=== PATIENT | female | born 1960 | race Caucasian/White ===

== ENCOUNTER → 2018-08-26 | Day surgery (SDC) | payer OTHER ==
[~2018-08-26] MED LIST: ACET325S GTB; ASPI81TA52 GTB; BISA10SU55 RC; EPOE3000 SC; FAMO20TA18 GTB; HEPARIN 1000 UNITS/ML 10 ML INJ ONE; HYDR-843 GTB; IPRA3AMP29 INHALATION; LANS30CA GTB; LIDOCAINE 1% (MDV) 20 ML INJ ONE; LISI30TA47 GTB; LORA0.5T GTB; MAGN400O19 GTB; METO-429 GTB; NA P133E10 RC; NEPH GTB; NYST15CR36 TOP; POLY17PO6 GTB; PROT946L GTB
--- NOTE | 2018-08-26 16:49 | RADRPT ---
PROCEDURE: PLACEMENT OF RIGHT INTERNAL JUGULAR VENOUS TUNNELED DIALYSIS CATHETER. CLINICAL INDICATION: Renal failure. TECHNIQUE: Prior to the procedure, informed consent was obtained. Risks including bleeding, infection, and pneum othorax were explained to the patient. The patient understood and was willing to proceed. A procedura l pause was performed. The patient's name, date of , and procedure to be performed were verified . The central line was inserted with all elements of maximal sterile barrier technique. All of the fo llowing were used: head covering, facial mask, sterile gown, sterile gloves, a large sterile sheet, h and hygiene, and 2% chlorhexidine for cutaneous antisepsis. The right neck and anterior/superior ch est wall was prepped and draped in usual sterile fashion. Following the local injection of Xylocaine, a 0.035 in Amplatz guidewire was advanced through the exi sting temporary dialysis catheter. A 1 cm incision with a #11 blade scalpel was made at the site of the existing temporary dialysis catheter and blunt dissection was performed. A tunnel was then creat ed from the anterior lateral aspect of the superior right chest wall to the puncture site in the neck and the catheter was pulled through the tract. The existing temporary dialysis catheter was removed over the guidewire. Serial dilatation was then performed and a 16 Moz[place]ican peel away sheath was intro duced. The 14.5 Mozambican 23cm long tip to cuff Angiodynamics BioFlo DuraMax dialysis catheter was adva nced through the 16 [place]ambican peel-away sheath. The tip of the catheter was confirmed in position within the right atrium. The peel-away sheath was removed. The 2 ports were each flushed with 2.3 ml of 1: 1000 heparin. The catheter was secured to the skin with 2-0 silk. The wound in the neck was closed with 4-0 Vicryl suture using subcuticular running technique. The site was dressed. Specimens: None. Blood loss: 5 ml. Complications: None. Bee Raiser: Rey Robledo. Anesthesia: Local and moderate sedation. Graft/Implant: Tunneled dialysis catheter. COMPARISON: None. FINDINGS: Final radiographic images demonstrate the tip of the catheter in the upper right atrium. A total of 0.1 minutes of fluoroscopy time was used. 7 images of the chest were obtained with image intensifie r. IMPRESSION: 1. Percutaneous insertion of right internal jugular dialysis tunneled dialysis catheter under fluoros copic guidance. RPTAT: QQ .Gaudencio Hall MD, Date Time Electronically viewed and signed by .Gaudencio Hall MD, on 08/26/2018 16:48 .R/
--- NOTE | 2018-08-26 16:50 | HPN ---
Date/Time of Note Date/Time of Note DATE: 08/26/18 TIME: 16:50 Interval H&P Admission Note Pt. seen H&P reviewed: No system changes JAVIER AGUIRRE MD Aug 26, 2018 16:50
== END | disposition home or self-care (01) ==
LOC: ZBAR 07:20 → EDSTATUS 11:30 → SDS 11:36
PROVIDERS: ATTEND Internal Medicine Nephrology
DX: I12.0 Hypertensive chronic kidney disease with stage 5 chronic kidney disease or end stage renal disease (principal); N18.6 End stage renal disease
CPT/HCPCS: 36558; J1644

== ENCOUNTER 2018-10-05 10:03 | Inpatient (IN) | payer MEDICARE, MEDICAID ==
[2018-10-05] VITALS (7 sets, daily range): BP systolic 131–140; BP diastolic 59–68; PULSE 87–96; RESP 18; Ht 162.6 cm; Wt 100.0 kg
[~2018-10-05] VITALS: Ht 162.6 cm; Wt 100.0 kg
[2018-10-05] MEDS ORDERED: SODIUM CHLORIDE 0.9% 1L BAG IV* STA (10:11)
[2018-10-05] MEDS ORDERED: CEFEPIME 2GM/50 ML (PMX) 50 ML IVPB STA (10:11)
[2018-10-05] MEDS ORDERED: VANCOMYCIN 1 GM (PMX) 250 ML IVPB ONE (10:30)
[2018-10-05] MEDS ORDERED: ACET325S GTB (10:34)
[2018-10-05] MEDS ORDERED: ASPI81TA52 GTB (10:35)
[2018-10-05] MEDS ORDERED: MAGN400O19 GTB (10:35)
[2018-10-05] MEDS ORDERED: NEPH GTB (10:35)
[2018-10-05] MEDS ORDERED: PROT946L GTB (10:36)
[2018-10-05] MEDS ORDERED: NYST15CR36 TOP (10:38)
[2018-10-05] MEDS ORDERED: METO-429 GTB (10:39)
[2018-10-05] MEDS ORDERED: LORA0.5T GTB (10:40)
[2018-10-05] MEDS ORDERED: LISI30TA47 GTB (10:40)
[2018-10-05] MEDS ORDERED: LANS30CA GTB (10:41)
[2018-10-05] MEDS ORDERED: IPRA3AMP29 INHALATION (10:41)
[2018-10-05] MEDS ORDERED: HYDR-843 GTB (10:42)
[2018-10-05] MEDS ORDERED: FAMO20TA18 GTB (10:42)
[2018-10-05] MEDS ORDERED: EPOE3000 SC (10:43)
[2018-10-05] MEDS ORDERED: POLY17PO6 GTB (10:44)
[2018-10-05] MEDS ORDERED: BISA10SU55 RC (10:45)
[2018-10-05] MEDS ORDERED: NA P133E10 RC (10:45)
[2018-10-05] MEDS ORDERED: SOD CHLORIDE 0.9% 500 ML IV ONE (11:00)
--- NOTE | 2018-10-05 11:01 | ERD ---
ER Documentation Chief Complaint Chief Complaint FROM SNF SENT FOR EVAL OF ELEVATED WBC. HPI 38-year-old female transferred from her care facility for evaluation of an elevated white blood cell count that was found on routine lab tests. Patient has limited to no insight in her presentation and provides no further symptoms. There is no further history available on the transfer documentation. ROS All systems reviewed and are negative except as per history of present illness. Medications Home Meds Reported Medications Bisacodyl (Dulcolax) 10 Mg Supp.rect, 10 MG RC DAILY PRN for CONSTIPATION, SUPP.RECT 10/05/18 Na Phos,M-B/Na Phos,Di-Ba (ENEMA [id number]) 133 Ml Enema, 133 ML RC EVERY 72 HOURS PRN for CONSTIPATION, ENEMA 10/05/18 Polyethylene Glycol* (Miralax*) 17 Gm Powd.pack, 17 GM GTB DAILY, #30 PACKET 10/05/18 Epoetin doretha* (Epogen*) 3,000 Unit/1 Ml Vial, [address] UNIT SC [place], VIAL 10/05/18 Famotidine* (Famotidine*) 20 Mg Tablet, 20 MG GTB DAILY, #30 TAB 10/05/18 Hydroxyzine Hcl* (Hydroxyzine Hcl*) 25 Mg Tablet, 25 MG GTB Q8H PRN for ITCHING, #30 TAB 10/05/18 Ipratropium-Albuterol (Ipratropium-Albuterol) 0.5-3 Mg/3 Ml Ampul.neb, 3 ML INHALATION Q6 PRN for WHEEZING AND SOB, #30 VIAL 10/05/18 Lansoprazole* (Lansoprazole*) 30 Mg Capsule.dr, 30 MG GTB DAILY, CAP 10/05/18 Lisinopril* (Lisinopril*) 30 Mg Tablet, 30 MG GTB DAILY, #30 TAB HOLD IF SBP <110 OR HR <60 10/05/18 Lorazepam* (Lorazepam*) 0.5 Mg Tablet, 0.5 MG GTB Q6 PRN for ANXIETY, TAB 10/05/18 Metoprolol Tartrate* (Lopressor*) 50 Mg Tab, 50 MG GTB BID, #60 TAB HOLD IF SBP <110 OR HR <60 10/05/18 Nystatin-Triamcinolone* (Nystatin-Triamcinolone* Cream) 15 Gm Cream.gm., 1 APPLIC TOP BID, #1 TUB 10/05/18 Protein Supplement (Promod) 946 Ml Liquid, 30 ML GTB BID 10/05/18 Multivit/Ca Carb/B Cmplx/Fa* (Stephanie-Johnny*) 1 Tab Tab, 1 TAB GTB DAILY, TAB 10/05/18 Magnesium Hydroxide* (Milk Of Magnesia*) 400 Mg/5 Ml Oral.susp, 30 ML GTB DAILY PRN for CONSTIPATION, ML 10/05/18 Aspirin (Low Dose Aspirin) 81 Mg Tablet.dr, 81 MG GTB DAILY, #30 TAB 10/05/18 Acetaminophen* (Acetaminophen* Susp) 325 Mg/10.15 Ml Solution, 650 MG GTB Q6 PRN for PAIN OR TEMP ABOVE 38C, ML 10/05/18 Allergies Allergies: Coded Allergies: No Known Allergy (Unverified , 10/05/18) PMhx/Soc History of Surgery: Yes (G TUBE PLACEMENT) Anesthesia Reaction: No Hx Neurological Disorder: No Hx Respiratory Disorders: Yes (RESP FAILURE.TRACHE) Hx Cardiac Disorders: Yes (HTN) Hx Psychiatric Problems: No Hx Miscellaneous Medical Probl: Yes (ESRD,ON DIALYSIS) Hx Alcohol Use: No Hx Substance Use: No Hx Tobacco Use: No Smoking Status: Never smoker FmHx Noncontributory for chief complaint Physical Exam Vitals Vital Signs Date Temp Pulse Resp B/P (MAP) Pulse Ox O2 O2 Flow FiO2 Time Delivery Rate 10/05/18 100.6 87 17 118/64 97 10:09 (82) Physical Exam General: Frail, bed bound, ill appearing HEENT: Mucous membranes dry, sclera nonicteric Neck: Tracheostomy site noted. Ostomy closed without inflammatory changes. No inflammatory changes noted. No JVD. Cardiovascular: Regular rate and rhythm, no murmurs rubs or gallops. Lungs: Transmission of upper airway sounds. Abdomen: Soft with G-tube appreciated. Nontender to palpation. Bowel sounds noted. : Diaper in place and incontinent. Extremities: Atrophic but atraumatic with no edema, cyanosis or clubbing. Neurologic: Baseline organic brain syndrome noted. Motor strength diminished in all 4 extremities but otherwise nonfocal. Skin: Skin breakdown noted per nursing note. Dialysis catheter in the right upper chest without inflammatory changes in the insertion site Result Diagram: 10/05/18 1021 10/05/18 1021 Results 24 hrs Laboratory Tests Test 10/05/18 10:21 10/05/18 10:25 White Blood Count 21.6 10^3/ul Red Blood Count 2.47 10^6/ul Hemoglobin 7.0 g/dl Hematocrit 22.7 % Mean Corpuscular Volume 91.9 fl Mean Corpuscular Hemoglobin 28.3 pg Mean Corpuscular Hemoglobin Concent 30.8 g/dl Red Cell Distribution Width 18.8 % Platelet Count 295 10^3/UL Mean Platelet Volume 9.5 fl Immature Granulocytes % 1.200 % Neutrophils % 79.9 % Lymphocytes % 6.9 % Monocytes % 10.3 % Eosinophils % 1.3 % Basophils % 0.4 % Nucleated Red Blood Cells % 0.0 /100WBC Immature Granulocytes # 0.260 10^3/ul Neutrophils # 17.3 10^3/ul Lymphocytes # 1.5 10^3/ul Monocytes # 2.2 10^3/ul Eosinophils # 0.3 10^3/ul Basophils # 0.1 10^3/ul Nucleated Red Blood Cells # 0.0 10^3/ul Prothrombin Time 14.1 Sec Prothrombin Time Ratio 1.1 INR International Normalized Ratio 1.08 Activated Partial Thromboplast Time 45.2 Sec Sodium Level 133 mmol/L Potassium Level 3.7 mmol/L Chloride Level 98 mmol/L Carbon Dioxide Level 25 mmol/L Anion Gap 10 Blood Urea Nitrogen 45 mg/dl Creatinine 4.80 mg/dl Est Glomerular Filtrat Rate mL/min 9 mL/min Glucose Level 119 mg/dl Calcium Level 9.9 mg/dl Total Bilirubin 0.0 mg/dl Direct Bilirubin 0.00 mg/dl Indirect Bilirubin 0.0 mg/dl Aspartate Amino Transf (AST/SGOT) 28 IU/L Alanine Aminotransferase (ALT/SGPT) 25 IU/L Alkaline Phosphatase 138 IU/L Troponin I Pending Total Protein 7.0 g/dl Albumin 3.0 g/dl Globulin 4.00 g/dl Albumin/Globulin Ratio 0.75 POC Venous Lactate 1.3 mmol/L Current Medications Medications Dose Sig/Anthony Start Time Status Last (Trade) Ordered Route PRN Stop Time Admin Dose Reason Admin Sodium 2,400 ml BOLUS OVER 2 10/05/18 DC Chloride HOURS STAT 10:11 (NS) IV* 10/05/18 10:13 Cefepime HCl 50 ml @ ONCE STAT 10/05/18 DC 10/05/18 100 mls/hr IVPB 10:11 10:30 10/05/18 10:40 Vancomycin 250 ml @ ONCE ONCE 10/05/18 10/05/18 HCl 125 mls/hr IVPB 10:30 10:50 10/05/18 12:29 Procedures/MDM Patient was taken to a room, seen and evaluated. Comfort measures were initiated. Diagnostic tests were ordered and reviewed. 3 LEAD RHYTHM STRIP: Pacemaker EK lead EKG reviewed by myself: Paced rhythm Left axis deviation, pacemaker morphology No ST elevation, depression, or T wave inversion Impression: Consistent with her pacemaker RADIOLOGY: Reviewed with the radiologist CONSULTATION: Dr. Moore's service was notified for admission REEVALUATION: 1100: Diagnostic tests were appreciated including lactate. Arrangements were made for admission. MEDICAL DECISION MAKIN-year-old female presents with an elevated white blood cell count concerning for an underlying infection. Source of infection is unclear at this time but she is at risk for a catheter associated infection, urinary tract infection, soft tissue as well as lung infection. Although her diagnostic tests are unclear at this time, given her comorbid conditions, she will be admitted for monitoring of her cultures, empiric antibiotics. I have started gentle IV fluids and as her lactate is less than 2, she does not appear to be severely septic. As she is a dialysis patient, and being judicious with fluids at this time. She will continue to be observed. Departure Diagnosis: Primary Impression: Sepsis Additional Impressions: Anemia Renal failure Condition: LESLI Olivera Oct 05, 2018 11:01
--- NOTE | 2018-10-05 14:24 | HP ---
Date/Time of Note Date/Time of Note DATE: 10/05/18 TIME: 14:15 Assessment/Plan VTE Prophylaxis SCD applied (from Nsg): Yes Pharmacological prophylaxis: LMWH Lines/Catheters IV Catheter Type (from Nrsg): Saline Lock Assessment/Plan Assessment/Plan -Sepsis of unclear etiology, will obtain UA and urine culture, and blood culture. Continue broad-spectrum antibiotics. Dr. Garcia is asked to see patient in infection disease consultation. -Hemodialysis dependent end-stage renal disease. Continue hemodialysis since per nephrology. Dr. Hamm is asked to see patient in nephrology consultation. -Status post PPM for heart block -Hypertension -GERD -Anemia of chronic disease Status post dysphagia with PEG -Status post acute respiratory failure -Obesity Further recommendations based on clinical course. Plan of care discussed with Dr. Moore. Result Diagram: 10/05/18 1021 10/05/18 1021 Results 24hrs Laboratory Tests Test 10/05/18 10:21 10/05/18 10:25 10/05/18 12:25 White Blood Count 21.6 #H Red Blood Count 2.47 L Hemoglobin 7.0 L Hematocrit 22.7 L Mean Corpuscular Volume 91.9 Mean Corpuscular Hemoglobin 28.3 L Mean Corpuscular Hemoglobin Concent 30.8 L Red Cell Distribution Width 18.8 #H Platelet Count 295 # Mean Platelet Volume 9.5 Immature Granulocytes % 1.200 H Neutrophils % 79.9 H Lymphocytes % 6.9 L Monocytes % 10.3 Eosinophils % 1.3 Basophils % 0.4 Nucleated Red Blood Cells % 0.0 Immature Granulocytes # 0.260 H Neutrophils # 17.3 H Lymphocytes # 1.5 Monocytes # 2.2 H Eosinophils # 0.3 Basophils # 0.1 Nucleated Red Blood Cells # 0.0 Prothrombin Time 14.1 Prothrombin Time Ratio 1.1 INR International Normalized Ratio 1.08 Activated Partial Thromboplast Time 45.2 H Sodium Level 133 L Potassium Level 3.7 Chloride Level 98 Carbon Dioxide Level 25 Anion Gap 10 Blood Urea Nitrogen 45 H Creatinine 4.80 H Est Glomerular Filtrat Rate mL/min 9 L Glucose Level 119 Calcium Level 9.9 Total Bilirubin 0.0 L Direct Bilirubin 0.00 Indirect Bilirubin 0.0 Aspartate Amino Transf (AST/SGOT) 28 Alanine Aminotransferase (ALT/SGPT) 25 Alkaline Phosphatase 138 H Troponin I 0.023 Total Protein 7.0 Albumin 3.0 L Globulin 4.00 H Albumin/Globulin Ratio 0.75 POC Venous Lactate 1.3 1.2 HPI/ROS Admit Date/Time Admit Date/Time Oct 05, 2018 at 11:51 Hx of Present Illness The patient is a 58-year-old female with history of cerebrovascular vascular accident, acute respiratory failure requiring tracheostomy and ventilatory support, currently decannulated, dysphagia with G-tube however patient is able to take p.o. diet at senior living facility, history of end-stage renal renal disease with hemodialysis 3 times a week, history of heart block status post pacemaker, hypertension, anemia, GERD, bilateral upper extremity cellulitis. Patient was brought from [facility] for evaluation for leukocyt osis noted on routine labs. Patient is awake alert to name and situation however cannot provide any history most of the history was obtained from medical records and talking to nursing staff. Patient white blood cells are noted to be elevated to 21,000 patient also had fever. Patient was diagnosed with sepsis and started on broad-spectrum antibiotics and admitted for further evaluation and management to telemetry floor. ROS 12 point review of system is negative except for what mentioned in HPI PMH/Family/Social Past Medical History Per HPI Medical History: hypertension, renal disease Coded Allergies: No Known Allergy (Unverified , 10/05/18) Past Surgical History Past Surgical Hx: other (Status post tracheostomy and subsequent decannulation, status post G-tube placement) Family History Significant Family History: no pertinent family hx Social History Smoking Status: Never smoker Exam/Review of Systems Vital Signs Vitals Vital Signs Date Temp Pulse Resp B/P (MAP) Pulse Ox O2 O2 Flow FiO2 Time Delivery Rate 10/05/18 88 13:45 10/05/18 98.6 18 140/68 99 13:37 (92) 10/05/18 Room Air 12:50 Exam Constitutional: alert, oriented Head: normocephalic Neck: supple Respiratory: diminished breath sounds Cardiovascular: regular rate and rhythm, other (Left chest PPM) Gastrointestinal: soft, non-tender, other (G-tube) Musculoskeletal: nl extremities to inspection Extremities: normal pulses Neurological: confused Additional Comments Right chest hemodialysis catheter ANDREW ODOM Oct 05, 2018 14:24
[2018-10-05] MEDS ORDERED: MAGNESIUM HYDROXIDE 30ML CUP GTB PRN (14:30)
[2018-10-05] MEDS ORDERED: ACETAMINOPHEN 650MG/20.3ML CUP GTB PRN (14:30)
[2018-10-05] MEDS ORDERED: hydrOXYzine HCL 25 MG TAB GTB PRN (14:30)
[2018-10-05] MEDS ORDERED: morphine 2 MG INJ IV PRN (14:30)
[2018-10-05] MEDS ORDERED: NACL 0.9% 3 ML SYG IV SCH (14:30)
[2018-10-05] MEDS ORDERED: ONDANSETRON 4 MG INJ IV PRN (14:30)
[2018-10-05] MEDS ORDERED: BISACODYL 10 MG SUPP PR PRN (14:30)
[2018-10-05] MEDS ORDERED: LORAZEPAM 0.5 MG TAB GTB PRN (14:30)
[2018-10-05] MEDS ORDERED: VANCOMYCIN IV PER PHARMACY XX SCH (15:00)
[2018-10-05] MEDS ORDERED: VANCOMYCIN 1 GM 250 ML IVPB SCH (16:00)
[2018-10-05] MEDS ORDERED: EPOETIN 10000 UNITS/1 ML INJ (ESRD) SC SCH (17:00)
[2018-10-05] MEDS ORDERED: EPOETIN ALFA (NESRD) 3,000 UNITS/ML VIAL SC SCH (17:00)
--- NOTE | 2018-10-05 18:54 | CONS ---
DATE OF ADMISSION: 10/05/2018 DATE OF CONSULTATION: 10/05/2018 TYPE OF CONSULTATION: Nephrology. REASON FOR CONSULTATION: End-stage renal disease. PHYSICIAN REQUESTING CONSULT: Lew Moore MD HISTORY OF PRESENT ILLNESS: This is a 58-year-old female with a past medical history of respiratory failure, status post tracheostomy with decannulation, a history of end-stage renal disease, history o f dysphagia, history of encephalopathy, hypertension, anemia, who presents to [facility] Room for elevated WBC. The patient was noted to have abnormal labs at her nursing facility. As a result, she was brought into the emergency room. Upon arrival, the patient had a chest x-ray wh ich showed no definitive finding of infiltrate. The patient in the emergency room was started on ant ibiotic therapy and admitted to telemetry for evaluation. Upon my evaluation of the patient at this time, she is currently stable, but denies any hemoptysis, h ematemesis, hematochezia. PAST MEDICAL HISTORY: As stated above, history of end-stage renal disease, history of hypertension, history of anemia, history of respiratory failure, history of encephalopathy, history of dysphagia, h istory of obesity, history of arrhythmia. PAST SURGICAL HISTORY: Status post PermCath placement, status post G-tube, status post tracheostomy with decannulation. FAMILY HISTORY: No family history of kidney disease. SOCIAL HISTORY: Lives at skilled nurse facility. MEDICATIONS: Have been reviewed. REVIEW OF SYSTEMS: A 14-point review of systems was conducted. Pertinent positives stated in HPI, o therwise negative. PHYSICAL EXAMINATION: VITAL SIGNS: Blood pressure is 140/68, respiration 18, pulse 87, temperature 98.6. HEENT: Head is normocephalic. NECK: Supple. HEART: Regular rate. LUNGS: Show diminished breath sounds at the base. ABDOMEN: Soft, nontender to palpation. No rebound or guarding. EXTREMITIES: Negative for clubbing, cyanosis. No edema. DERMATOLOGIC: No rashes. MUSCULOSKELETAL: No joint effusion. NEUROLOGIC: No focal deficits. LABORATORY DATA: Show white count 21.6, hemoglobin 7.0, platelet count 295. Sodium 133, potassium 3 .7, BUN 45, creatinine 4.80. ASSESSMENT AND PLAN: This is a 58-year-old female who presents with: 1. End-stage renal disease. The patient is on dialysis Jasmyne, , Wednesday with access Perm Cath. Plan is for dialysis today. We will dialyze for 3 hours of 4k bath, calcium 2.5, ultrafiltrat e as tolerated. 2. Anemia. Plan is to check an iron panel. Check ferritin level. Check stool for occult blood. W e will continue the patient on Epogen. 3. Mineral bone disorder. Monitor calcium and phosphorus levels. 4. Hyponatremia. The patient will be dialyzed on a 140-sodium bath. 5. Hypertension. Continue current blood pressure regimen. Continue ultrafiltration. 6. Sepsis. Etiology is unclear. Need to rule out line infection. Plan is to check blood cultures, peripherally blood culture from PermCath. We will check procalcitonin level. Continue antibiotic t herapy. Follow up with primary team. 7. History of arrhythmia, status post pacemaker placement. 8. Dysphagia, status post PEG. Continue tube feeding. 9. History of respiratory failure. 10. Obesity. Thank you, Dr. Moore, for this interesting consult. It will be a pleasure to follow patient with you throughout the hospital course. Dictated By: KAYLENE SÁNCHEZ DO NR/NTS Conf#: [id number] DID#: [id number] CC: LEW MOORE MD;*EndCC*
[2018-10-05] MEDS: METOPROLOL 50 MG TAB GTB SCH (20:10)
[2018-10-06] VITALS (23 sets, daily range): BP systolic 92–134; BP diastolic 51–91; PULSE 74–98; RESP 18–20
[2018-10-06] MEDS ORDERED: VANCOMYCIN IV PER PHARMACY XX SCH (05:30)
--- NOTE | 2018-10-06 08:54 | PN ---
DATE: 10/06/2018 SUBJECTIVE: The patient is stable, no events overnight. Patient is currently receiving hemodialysis , tolerating well. OBJECTIVE: VITAL SIGNS: Blood pressure is 111/57, pulse 98, respirations 20, temperature 98.2. HEENT: Head is normocephalic. NECK: Supple. HEART: Regular rate. LUNGS: Show diminished breath sounds at the base. ABDOMEN: Soft, nontender to palpation without rebound or guarding. EXTREMITIES: Negative for clubbing, cyanosis, no edema. DERMATOLOGIC: No rashes. MUSCULOSKELETAL: No joint effusion. NEUROLOGIC: No change in exam. MEDICATIONS: Reviewed. LABORATORY DATA: Shows sodium 135, potassium 3.9, BUN 55, creatinine 5.53. White count 13.3, hemogl obin 7.6, platelet count 331. Patient's iron panel was reviewed. ASSESSMENT AND PLAN: 1. End-stage renal disease. Plan is for dialysis today. We will dialyze for 3 hours 3k bath, calci um 2.5, ultrafiltrate as tolerated. 2. Anemia. The patient's iron panel shows evidence of iron deficiency, will start patient on IV Ken rlecit. Continue Epogen. 3. Mineral bone disorder, monitor calcium and phosphorus levels. 4. Hyponatremia. Continue dialysis 140 sodium bath. 5. Hypertension. Continue blood pressure regimen. 6. Sepsis, etiology unclear. Need to rule out line infection. Blood cultures from Perm-A-Cath will be drawn. Continue antibiotic therapy, monitor closely. 7. History of arrhythmia. Continue to monitor. 8. Dysphagia, status post PEG. 9. History of respiratory failure. 10. Obesity. Continue dietary modification. Dictated By: KAYLENE SÁNCHEZ DO NR/NTS Conf#: [id number] DID#: [id number] CC: LEW RODRÍGUEZ MD;*EndCC*
[2018-10-06] MEDS: LISINOPRIL 10 MG TAB GTB SCH (09:00)
[2018-10-06] MEDS: METOPROLOL 50 MG TAB GTB SCH ×2 (09:00→20:16)
[2018-10-06] MEDS: MULTIVIT/CA CARB/B CMPLX/FA TAB GTB SCH (09:50)
[2018-10-06] MEDS: ASPIRIN (EC) 81 MG TAB PO SCH (09:51)
[2018-10-06] MEDS: POLYETHYLENE GLYCOL 17 GM PACKET GTB SCH (09:51)
[2018-10-06] MEDS: FAMOTIDINE 20 MG TAB GTB SCH (09:51)
[2018-10-06] MEDS ORDERED: CEFEPIME 1GM/50 ML (PMX) 50 ML IVPB SCH (10:00)
[2018-10-06] MEDS: HEPARIN 1000 UNITS/ML 10 ML INJ CATHETER SCH (10:12)
[2018-10-06] MEDS: CEFEPIME 2GM/50 ML (PMX) 50 ML IVPB SCH (11:14)
[2018-10-06] MEDS: SOD FERRIC GLUC COMPLX 125 MG in SOD CHLORIDE 0.9% 100 ML IVPB SCH (12:14)
--- NOTE | 2018-10-06 16:25 | PN ---
Date/Time of Note Date/Time of Note DATE: 10/06/18 TIME: 16:21 Assessment/Plan VTE Prophylaxis [place] [facility] [place] risk: 6 SCD applied [place] [facility] [place] Yes Pharmacological prophylaxis: NA/contraindicated Pharm contraindication: other Lines/Catheters [facility] C[facility] Type [facility]from [facility] Saline Lock Urinary Cath still in place: No Assessment/Plan Hospital Course Patient is hemodynamically stable, no fever, past swallow evaluation started on pured diet status post hemodialysis today. Assessment/Plan -Sepsis gram-positive cocci bacteremia. Continue broad-spectrum antibiotics. Dr. Garcia is following in infection disease consultation. -Hemodialysis dependent end-stage renal disease. Continue hemodialysis per nephrology. Dr. Hamm is following in nephrology consultation. -Status post PPM for heart block -Hypertension -GERD -Anemia of chronic disease -Status post dysphagia with PEG -Status post acute respiratory failure -Obesity Further recommendations based on clinical course. Plan of care discussed with Dr. Moore. Result Diagram: 10/06/18 0544 10/06/18 0544 Results 24hrs Laboratory Tests Test 10/06/18 05:44 White Blood Count 13.3 #H Red Blood Count 2.68 L Hemoglobin 7.6 L Hematocrit 24.9 L Mean Corpuscular Volume 92.9 Mean Corpuscular Hemoglobin 28.4 L Mean Corpuscular Hemoglobin Concent 30.5 L Red Cell Distribution Width 19.1 H Platelet Count 331 Mean Platelet Volume 9.7 Immature Granulocytes % 1.100 H Neutrophils % 81.5 H Lymphocytes % 7.4 L Monocytes % 5.4 Eosinophils % 4.4 Basophils % 0.2 Nucleated Red Blood Cells % 0.0 Immature Granulocytes # 0.140 H Neutrophils # 10.8 H Lymphocytes # 1.0 Monocytes # 0.7 Eosinophils # 0.6 H Basophils # 0.0 Nucleated Red Blood Cells # 0.0 Sodium Level 135 Potassium Level 3.9 Chloride Level 101 Carbon Dioxide Level 23 Anion Gap 11 Blood Urea Nitrogen 55 H Creatinine 5.53 H Est Glomerular Filtrat Rate mL/min 8 L Glucose Level 81 Lactic Acid Level 0.8 Calcium Level 10.0 Magnesium Level 2.3 Total Bilirubin 0.0 L Direct Bilirubin 0.00 Indirect Bilirubin 0.0 Aspartate Amino Transf (AST/SGOT) 32 Alanine Aminotransferase (ALT/SGPT) 38 Alkaline Phosphatase 113 Total Protein 6.1 Albumin 2.5 L Globulin 3.60 H Albumin/Globulin Ratio 0.69 Triglycerides Level 112 Cholesterol Level 117 LDL Cholesterol, Calculated 77 HDL Cholesterol 18 L Cholesterol/HDL Ratio 6.5 Exam/Review of Systems Exam Vitals Vital Signs Date Temp Pulse Resp B/P (MAP) Pulse Ox O2 O2 Flow FiO2 Time Delivery Rate 10/06/18 98.2 94 19 116/54 100 15:16 (74) 10/06/18 Room Air 08:17 Intake and Output 10/05/18 10/05/18 10/06/18 1515:00 23:00 07:00 IntakeIntake Total 650 ml 240 ml BalanceBalance 650 ml 240 ml Exam Constitutional: alert, oriented Respiratory: diminished breath sounds Cardiovascular: regular rate and rhythm, other (Left chest PPM) Gastrointestinal: soft, non-tender, other (G-tube) Musculoskeletal: nl extremities to inspection Extremities: normal pulses Neurological: confused Additional Comments Right chest hemodialysis catheter Results Results 24hrs Laboratory Tests Test 10/06/18 05:44 White Blood Count 13.3 #H Red Blood Count 2.68 L Hemoglobin 7.6 L Hematocrit 24.9 L Mean Corpuscular Volume 92.9 Mean Corpuscular Hemoglobin 28.4 L Mean Corpuscular Hemoglobin Concent 30.5 L Red Cell Distribution Width 19.1 H Platelet Count 331 Mean Platelet Volume 9.7 Immature Granulocytes % 1.100 H Neutrophils % 81.5 H Lymphocytes % 7.4 L Monocytes % 5.4 Eosinophils % 4.4 Basophils % 0.2 Nucleated Red Blood Cells % 0.0 Immature Granulocytes # 0.140 H Neutrophils # 10.8 H Lymphocytes # 1.0 Monocytes # 0.7 Eosinophils # 0.6 H Basophils # 0.0 Nucleated Red Blood Cells # 0.0 Sodium Level 135 Potassium Level 3.9 Chloride Level 101 Carbon Dioxide Level 23 Anion Gap 11 Blood Urea Nitrogen 55 H Creatinine 5.53 H Est Glomerular Filtrat Rate mL/min 8 L Glucose Level 81 Lactic Acid Level 0.8 Calcium Level 10.0 Magnesium Level 2.3 Total Bilirubin 0.0 L Direct Bilirubin 0.00 Indirect Bilirubin 0.0 Aspartate Amino Transf (AST/SGOT) 32 Alanine Aminotransferase (ALT/SGPT) 38 Alkaline Phosphatase 113 Total Protein 6.1 Albumin 2.5 L Globulin 3.60 H Albumin/Globulin Ratio 0.69 Triglycerides Level 112 Cholesterol Level 117 LDL Cholesterol, Calculated 77 HDL Cholesterol 18 L Cholesterol/HDL Ratio 6.5 Medications Medication Current Medications Acetaminophen (Tylenol Liquid) 650 mg Q6 PRN GTB MILD PAIN(1-3) OR TEMP>38C; Start 10/05/18 at 14:30 Aspirin (Halfprin) 81 mg DAILY PO Last administered on 10/06/18at 09:51; Admin Dose 81 MG; Start 10/06/18 at 09:00 Bisacodyl (Dulcolax Supp) 10 mg DAILY PRN [place] CONSTIPATION; Start 10/05/18 at 14:30 Famotidine (Pepcid) 20 mg DAILY GTB Last administered on 10/06/18at 09:51; Admin Dose 20 MG; Start 10/06/18 at 09:00 Hydroxyzine HCl (Atarax) 25 mg Q8H PRN GTB ITCHING; Start 10/05/18 at 14:30 Lisinopril (Zestril) 30 mg DAILY GTB ; Start 10/06/18 at 09:00 Lorazepam (Ativan) 0.5 mg Q6H PRN GTB ANXIETY; Start 10/05/18 at 14:30 Magnesium Hydroxide (Milk Of Mag) 30 ml DAILY PRN GTB CONSTIPATION; Start 10/05/18 at 14:30 Metoprolol Tartrate (Lopressor) 50 mg BID GTB Last administered on 10/05/18at 20:10; Admin Dose 50 MG; Start 10/05/18 at 21:00 Multivit/Ca Carb/ B Cmplx/FA/Prenat (Stephanie-Johnny) 1 tab DAILY GTB Last administer ed on 10/06/18at 09:50; Admin Dose 1 TAB; Start 10/06/18 at 09:00 Polyethylene Glycol (Miralax) 17 gm DAILY GTB Last administered on 10/06/18at 09:51; Admin Dose 17 GM; Start 10/06/18 at 09:00 IV Flush (NS 3 ml) 3 ml PER PROTOCOL IV ; Start 10/05/18 at 14:30 Ondansetron HCl (Zofran Inj) 4 mg Q6H PRN IV NAUSEA/VOMITING; Start 10/05/18 at 14:30 Morphine Sulfate (morphine) 2 mg Q4H PRN IV .PAIN 7-10; Start 10/05/18 at 14:30 Vancomycin HCl (Vanco Iv Per Pharmacy) VANCOMYCIN PER PHARMACY PER PROTOCOL XX ; Start 10/05/18 at 15:00 Cefepime HCl 50 ml @ 100 mls/hr Q24H IVPB Last administered on 10/06/18at 11:14; Admin Dose 100 MLS/HR; Start 10/06/18 at 10:00 Epoetin Justen (Epogen (Esrd)) 10,000 units TuThSa@17 SC ; Start 10/06/18 at 17:00 Heparin Sodium (Porcine) (Heparin (1000 Units/ml)) 4,500 unit PRN CATHETER Last administered on 10/06/18at 10:12; Admin Dose 4,500 UNIT; Start 10/06/18 at 07:30 Ferric Sodium Gluconate Complex 125 mg/Sodium Chloride 110 ml @ 110 mls/hr DAILY@1300 IVPB Last administered on 10/06/18at 12:14; Admin Dose 110 MLS/HR; Start 10/06/18 at 13:00; Stop 10/10/18 at 13:59 Miscellaneous Information (*Rx Drug Level Order Reminder*) VANCO RANDOM W/ AM LABS... ONCE ONCE XX ; Start 10/07/18 at 05:00; Stop 10/07/18 at 05:01 ANDREW ODOM Oct 06, 2018 16:25
[2018-10-06] MEDS: EPOETIN 10000 UNITS/1 ML INJ (ESRD) SC SCH (17:30)
[2018-10-07] VITALS (22 sets, daily range): BP systolic 109–161; BP diastolic 53–87; PULSE 57–111; RESP 18–22
--- NOTE | 2018-10-07 08:35 | PN ---
DATE: 10/07/2018 SUBJECTIVE: The patient is stable, had hemodialysis yesterday, tolerated well. OBJECTIVE: VITAL SIGNS: Blood pressure is 111/54, pulse 79, respirations 22, temperature 98.0. HEENT: Head is normocephalic. NECK: Supple. HEART: Regular rate. LUNGS: Show diminished breath sounds at the base. ABDOMEN: Soft, nontender to palpation. No rebound or guarding. EXTREMITIES: Negative for clubbing, cyanosis, no edema. DERMATOLOGIC: No rashes. MUSCULOSKELETAL: No joint effusion. NEUROLOGIC: No change in exam. MEDICATIONS: Reviewed. LABORATORY DATA: From 10/07/2018 was reviewed. ASSESSMENT AND PLAN: 1. End-stage renal disease. The patient had hemodialysis yesterday. Plan is for dialysis again for solute clearance. 2. Anemia. The patient has noted iron deficiency. Continue IV Ferrlecit. Continue Epogen. 3. Mineral bone disorder, monitor calcium and phosphorus levels. 4. Hypernatremia, improved. 5. Hypertension. Continue current blood pressure regimen. 6. Sepsis, etiology is concerning for possible line infection. The patient's blood cultures are pos itive. The patient is pending blood cultures from Perm-A-Cath. If they are noted to be positive, we will likely need to discontinue Perm-A-Cath. We will continue antibiotic regimen. We will discuss with infectious disease and monitor closely. 7. Arrhythmia. Continue to monitor. 8. Dysphagia status post percutaneous endoscopic gastrostomy. Continue tube feeding. 9. History of respiratory failure. 10. Obesity. Continue dietary modification. Dictated By: KAYLENE JOSUE/NTS Conf#: [id number] DID#: [id number] CC: LEW RODRÍGUEZ MD;*EndCC*
[2018-10-07] MEDS: METOPROLOL 50 MG TAB GTB SCH ×2 (09:00→21:19)
[2018-10-07] MEDS: LISINOPRIL 10 MG TAB GTB SCH (09:00)
[2018-10-07] MEDS: POLYETHYLENE GLYCOL 17 GM PACKET GTB SCH (09:44)
[2018-10-07] MEDS: MULTIVIT/CA CARB/B CMPLX/FA TAB GTB SCH (09:44)
[2018-10-07] MEDS: ASPIRIN (EC) 81 MG TAB PO SCH (09:44)
[2018-10-07] MEDS: FAMOTIDINE 20 MG TAB GTB SCH (09:44)
[2018-10-07] MEDS: CEFEPIME 2GM/50 ML (PMX) 50 ML IVPB SCH (10:12)
--- NOTE | 2018-10-07 11:33 | PN ---
Date/Time of Note Date/Time of Note DATE: 10/07/18 TIME: 11:32 Assessment/Plan VTE Prophylaxis Risk score (from [facility])>0 risk: 7 SCD applied (from [facility]): Yes Lines/Catheters IV Catheter Type (from [facility]rs): Saline Lock Urinary Cath still in place: No Assessment/Plan Assessment/Plan -Sepsis gram-positive cocci bacteremia. Continue broad-spectrum antibiotics. Dr. Garcia is following in infection disease consultation. -Hemodialysis dependent end-stage renal disease. Continue hemodialysis per nephrology. Dr. Hamm is following in nephrology consultation. -Status post PPM for heart block -Hypertension -GERD -Anemia of chronic disease -Status post dysphagia with PEG -Status post acute respiratory failure -Obesity Further recommendations based on clinical course. Plan of care discussed with Dr. Moore. Result Diagram: 10/07/1817 10/07/18 0517 Results 24hrs Laboratory Tests Test 10/07/18 05:17 White Blood Count 11.7 H Red Blood Count 2.75 L Hemoglobin 7.8 L Hematocrit 25.2 L Mean Corpuscular Volume 91.6 Mean Corpuscular Hemoglobin 28.4 L Mean Corpuscular Hemoglobin Concent 31.0 L Red Cell Distribution Width 18.9 H Platelet Count 365 Mean Platelet Volume 9.8 Immature Granulocytes % 1.000 H Neutrophils % 75.3 Lymphocytes % 8.5 L Monocytes % 6.8 Eosinophils % 8.1 H Basophils % 0.3 Nucleated Red Blood Cells % 0.0 Immature Granulocytes # 0.120 H Neutrophils # 8.8 H Lymphocytes # 1.0 Monocytes # 0.8 Eosinophils # 1.0 H Basophils # 0.0 Nucleated Red Blood Cells # 0.0 Sodium Level 138 Potassium Level 4.1 Chloride Level 100 Carbon Dioxide Level 26 Anion Gap 12 Blood Urea Nitrogen 33 #H Creatinine 4.95 H Est Glomerular Filtrat Rate mL/min 9 L Glucose Level 85 Calcium Level 10.1 Random Vancomycin Level 16.9 Exam/Review of Systems Exam Vitals Vital Signs Date Temp Pulse Resp B/P (MAP) Pulse Ox O2 O2 Flow FiO2 Time Delivery Rate 10/07/18 81 08:49 10/07/18 98.0 22 111/54 96 Room Air 07:25 (73) Intake and Output 10/06/18 10/06/18 10/07/18 1414:59 22:59 06:59 IntakeIntake Total 160 ml 900 ml 240 ml OutputOutput Total 2400 ml BalanceBalance -2240 ml 900 ml 240 ml Results Results 24hrs Laboratory Tests Test 10/07/18 05:17 White Blood Count 11.7 H Red Blood Count 2.75 L Hemoglobin 7.8 L Hematocrit 25.2 L Mean Corpuscular Volume 91.6 Mean Corpuscular Hemoglobin 28.4 L Mean Corpuscular Hemoglobin Concent 31.0 L Red Cell Distribution Width 18.9 H Platelet Count 365 Mean Platelet Volume 9.8 Immature Granulocytes % 1.000 H Neutrophils % 75.3 Lymphocytes % 8.5 L Monocytes % 6.8 Eosinophils % 8.1 H Basophils % 0.3 Nucleated Red Blood Cells % 0.0 Immature Granulocytes # 0.120 H Neutrophils # 8.8 H Lymphocytes # 1.0 Monocytes # 0.8 Eosinophils # 1.0 H Basophils # 0.0 Nucleated Red Blood Cells # 0.0 Sodium Level 138 Potassium Level 4.1 Chloride Level 100 Carbon Dioxide Level 26 Anion Gap 12 Blood Urea Nitrogen 33 #H Creatinine 4.95 H Est Glomerular Filtrat Rate mL/min 9 L Glucose Level 85 Calcium Level 10.1 Random Vancomycin Level 16.9 Medications Medication Current Medications Acetaminophen (Tylenol Liquid) 650 mg Q6 PRN GTB MILD PAIN(1-3) OR TEMP>38C; Start 10/05/18 at 14:30 Aspirin (Halfprin) 81 mg DAILY PO Last administered on 10/07/18at 09:44; Admin Dose 81 MG; Start 10/06/18 at 09:00 Bisacodyl (Dulcolax Supp) 10 mg DAILY PRN [place] CONSTIPATION; Start 10/05/18 at 14:30 Famotidine (Pepcid) 20 mg DAILY GTB Last administered on 10/07/18at 09:44; Admin Dose 20 MG; Start 10/06/18 at 09:00 Hydroxyzine HCl (Atarax) 25 mg Q8H PRN GTB ITCHING; Start 10/05/18 at 14:30 Lisinopril (Zestril) 30 mg DAILY GTB ; Start 10/06/18 at 09:00 Lorazepam (Ativan) 0.5 mg Q6H PRN GTB ANXIETY; Start 10/05/18 at 14:30 Magnesium Hydroxide (Milk Of Mag) 30 ml DAILY PRN GTB CONSTIPATION; Start 10/05/18 at 14:30 Metoprolol Tartrate (Lopressor) 50 mg BID GTB Last administered on 10/06/18 20:16; Admin Dose 50 MG; Start 10/05/18 at 21:00 Multivit/Ca Carb/ B Cmplx/FA/Prenat (Stephanie-Johnny) 1 tab DAILY GTB Last administered on 10/07/18 09:44; Admin Dose 1 TAB; Start 10/06/18 at 09:00 Polyethylene Glycol (Miralax) 17 gm DAILY GTB Last administered on 10/07/18 09:44; Admin Dose 17 GM; Start 10/06/18 at 09:00 IV Flush (NS 3 ml) 3 ml PER PROTOCOL IV ; Start 10/05/18 at 14:30 Ondansetron HCl (Zofran Inj) 4 mg Q6H PRN IV NAUSEA/VOMITING; Start 10/05/18 at 14:30 Morphine Sulfate (morphine) 2 mg Q4H PRN IV .PAIN 7-10; Start 10/05/18 at 14:30 Vancomycin HCl (Vanco Iv Per Pharmacy) VANCOMYCIN PER PHARMACY PER PROTOCOL XX ; Start 10/05/18 at 15:00 Cefepime HCl 50 ml @ 100 mls/hr Q24H IVPB Last administered on 10/07/18 10:12; Admin Dose 100 MLS/HR; Start 10/06/18 at 10:00 Epoetin Justen (Epogen (Esrd)) 10,000 units TuThSa@17 SC Last administered on 10/06/18 17:30; Admin Dose 10,000 UNITS; Start 10/06/18 at 17:00 Heparin Sodium (Porcine) (Heparin (1000 Units/ml)) 4,500 unit PRN CATHETER Last administered on 10/06/18 10:12; Admin Dose 4,500 UNIT; Start 10/06/18 at 07:30 Ferric Sodium Gluconate Complex 125 mg/Sodium Chloride 110 ml @ 110 mls/hr DAILY@1300 IVPB Last administered on 10/06/18 12:14; Admin Dose 110 MLS/HR; Start 10/06/18 at 13:00; Stop 10/10/18 at 13:59 FREDDY LING Oct 07, 2018 11:33
[2018-10-07] MEDS: SOD FERRIC GLUC COMPLX 125 MG in SOD CHLORIDE 0.9% 100 ML IVPB SCH (13:28)
[2018-10-07] MEDS ORDERED: VANCOMYCIN HCL 1.25 GM in SOD CHLORIDE 0.9% 250 ML IVPB SCH (16:00)
[2018-10-08] VITALS (15 sets, daily range): BP systolic 97–133; BP diastolic 50–80; PULSE 75–123; RESP 18–19
[2018-10-08] MEDS: FAMOTIDINE 20 MG TAB GTB SCH (09:21)
[2018-10-08] MEDS: MULTIVIT/CA CARB/B CMPLX/FA TAB GTB SCH (09:21)
[2018-10-08] MEDS: POLYETHYLENE GLYCOL 17 GM PACKET GTB SCH (09:21)
[2018-10-08] MEDS: ASPIRIN (EC) 81 MG TAB PO SCH (09:21)
[2018-10-08] MEDS: METOPROLOL 50 MG TAB GTB SCH ×2 (09:23→21:49)
[2018-10-08] MEDS: LISINOPRIL 10 MG TAB GTB SCH (09:24)
--- NOTE | 2018-10-08 10:37 | CONS ---
Consult Date/Type/Reason Admit Date/Time Oct 05, 2018 at 11:51 Initial Consult Date Date/Time of Note DATE: 10/08/18 TIME: 10:35 Subjective SUBJECTIVE: The patient is stable, had hemodialysis yesterday, tolerated well. OBJECTIVE: HEENT: Head is normocephalic. NECK: Supple. HEART: Regular rate. LUNGS: Show diminished breath sounds at the base. ABDOMEN: Soft, nontender to palpation. No rebound or guarding. EXTREMITIES: Negative for clubbing, cyanosis, no edema. DERMATOLOGIC: No rashes. MUSCULOSKELETAL: No joint effusion. NEUROLOGIC: No change in exam. Objective Vitals Vital Signs Date Temp Pulse Resp B/P (MAP) Pulse Ox O2 O2 Flow FiO2 Time Delivery Rate 10/08/18 109 08:01 10/08/18 98.1 19 103/51 96 07:35 (68) 10/07/18 Room Air 22:47 Intake and Output 10/07/18 10/07/18 10/08/18 1515:00 23:00 07:00 IntakeIntake Total 160 ml 500 ml 300 ml OutputOutput Total 2602 ml 92435 ml BalanceBalance 160 ml -2102 ml -63875 ml Results/Medications Result Diagram: 10/08/18 0530 10/08/18 0530 Results 24 hrs Laboratory Tests Test 10/08/18 05:30 White Blood Count 11.2 H Red Blood Count 2.90 L Hemoglobin 8.2 L Hematocrit 26.9 L Mean Corpuscular Volume 92.8 Mean Corpuscular Hemoglobin 28.3 L Mean Corpuscular Hemoglobin Concent 30.5 L Red Cell Distribution Width 18.8 H Platelet Count 388 Mean Platelet Volume 9.9 Immature Granulocytes % 1.900 H Neutrophils % 72.7 Lymphocytes % 9.0 L Monocytes % 5.7 Eosinophils % 10.4 H Basophils % 0.3 Nucleated Red Blood Cells % 0.2 H Immature Granulocytes # 0.210 H Neutrophils # 8.1 H Lymphocytes # 1.0 Monocytes # 0.6 Eosinophils # 1.2 H Basophils # 0.0 Nucleated Red Blood Cells # 0.0 Sodium Level 134 L Potassium Level 3.9 Chloride Level 99 Carbon Dioxide Level 26 Anion Gap 9 Blood Urea Nitrogen 22 #H Creatinine 4.17 H Est Glomerular Filtrat Rate mL/min 11 L Glucose Level 97 Calcium Level 9.9 Phosphorus Level 3.5 Magnesium Level 2.0 Home Meds Reported Medications Bisacodyl (Dulcolax) 10 Mg Supp.rect, 10 MG RC DAILY PRN for CONSTIPATION, SUPP.RECT 10/05/18 Na Phos,M-B/Na Phos,Di-Ba (ENEMA ERKET-LA-GWG) 133 Ml Enema, 133 ML RC EVERY 72 HOURS PRN for CONSTIPATION, ENEMA 10/05/18 Polyethylene Glycol* (Miralax*) 17 Gm Powd.pack, 17 GM GTB DAILY, #30 PACKET 10/05/18 Epoetin doretha* (Epogen*) 3,000 Unit/1 Ml Vial, 80871 UNIT SC MONWEDFRI, VIAL 10/05/18 Famotidine* (Famotidine*) 20 Mg Tablet, 20 MG GTB DAILY, #30 TAB 10/05/18 Hydroxyzine Hcl* (Hydroxyzine Hcl*) 25 Mg Tablet, 25 MG GTB Q8H PRN for ITCHING, #30 TAB 10/05/18 Ipratropium-Albuterol (Ipratropium-Albuterol) 0.5-3 Mg/3 Ml Ampul.neb, 3 ML INHALATION Q6 PRN for WHEEZING AND SOB, #30 VIAL 10/05/18 Lansoprazole* (Lansoprazole*) 30 Mg Capsule.dr, 30 MG GTB DAILY, CAP 10/05/18 Lisinopril* (Lisinopril*) 30 Mg Tablet, 30 MG GTB DAILY, #30 TAB HOLD IF SBP <110 OR HR <60 10/05/18 Lorazepam* (Lorazepam*) 0.5 Mg Tablet, 0.5 MG GTB Q6 PRN for ANXIETY, TAB 10/05/18 Metoprolol Tartrate* (Lopressor*) 50 Mg Tab, 50 MG GTB BID, #60 TAB HOLD IF SBP <110 OR HR <60 10/05/18 Nystatin-Triamcinolone* (Nystatin-Triamcinolone* Cream) 15 Gm Cream.gm., 1 APPLIC TOP BID, #1 TUB 10/05/18 Protein Supplement (Promod) 946 Ml Liquid, 30 ML GTB BID 10/05/18 Multivit/Ca Carb/B Cmplx/Fa* (Stephanie-Johnny*) 1 Tab Tab, 1 TAB GTB DAILY, TAB 10/05/18 Magnesium Hydroxide* (Milk Of Magnesia*) 400 Mg/5 Ml Oral.susp, 30 ML GTB DAILY PRN for CONSTIPATION, ML 10/05/18 Aspirin (Low Dose Aspirin) 81 Mg Tablet.dr, 81 MG GTB DAILY, #30 TAB 10/05/18 Acetaminophen* (Acetaminophen* Susp) 325 Mg/10.15 Ml Solution, 650 MG GTB Q6 PRN for PAIN OR TEMP ABOVE 38C, ML 10/05/18 Medications Current Medications Acetaminophen (Tylenol Liquid) 650 mg Q6 PRN GTB MILD PAIN(1-3) OR TEMP>38C; Start 10/05/18 at 14:30 Aspirin (Halfprin) 81 mg DAILY PO Last administered on 10/08/18 09:21; Admin Dose 81 MG; Start 10/06/18 at 09:00 Bisacodyl (Dulcolax Supp) 10 mg DAILY PRN [place] CONSTIPATION; Start 10/05/18 at 14:30 Famotidine (Pepcid) 20 mg DAILY GTB Last administered on 10/08/18 09:21; Admin Dose 20 MG; Start 10/06/18 at 09:00 Hydroxyzine HCl (Atarax) 25 mg Q8H PRN GTB ITCHING; Start 10/05/18 at 14:30 Lisinopril (Zestril) 30 mg DAILY GTB Last administered on 10/08/18at 09:24; Admin Dose 30 MG; Start 10/06/18 at 09:00 Lorazepam (Ativan) 0.5 mg Q6H PRN GTB ANXIETY; Start 10/05/18 at 14:30 Magnesium Hydroxide (Milk Of Mag) 30 ml DAILY PRN GTB CONSTIPATION; Start 10/05/18 at 14:30 Metoprolol Tartrate (Lopressor) 50 mg BID GTB Last administered on 10/08/18 09:23; Admin Dose 50 MG; Start 10/05/18 at 21:00 Multivit/Ca Carb/ B Cmplx/FA/Prenat (Stephanie-Johnny) 1 tab DAILY GTB Last administered on 10/08/18 09:21; Admin Dose 1 TAB; Start 10/06/18 at 09:00 Polyethylene Glycol (Miralax) 17 gm DAILY GTB Last administered on 2/23/19at 09:21; Admin Dose 17 GM; Start 10/06/18 at 09:00 IV Flush (NS 3 ml) 3 ml PER PROTOCOL IV ; Start 10/05/18 at 14:30 Ondansetron HCl (Zofran Inj) 4 mg Q6H PRN IV NAUSEA/VOMITING; Start 10/05/18 at 14:30 Morphine Sulfate (morphine) 2 mg Q4H PRN IV .PAIN 7-10; Start 10/05/18 at 14:30 Vancomycin HCl (Vanco Iv Per Pharmacy) VANCOMYCIN PER PHARMACY PER PROTOCOL XX ; Start 10/05/18 at 15:00 Cefepime HCl 50 ml @ 100 mls/hr Q24H IVPB Last administered on 10/07/18at 10:12; Admin Dose 100 MLS/HR; Start 10/06/18 at 10:00 Epoetin Doretha (Epogen (Esrd)) 10,000 units TuThSa@17 SC Last administered on 10/06/18at 17:30; Admin Dose 10,000 UNITS; Start 10/06/18 at 17:00 Heparin Sodium (Porcine) (Heparin (1000 Units/ml)) 4,500 unit PRN CATHETER Last administered on 10/06/18at 10:12; Admin Dose 4,500 UNIT; Start 10/06/18 at 07:30 Ferric Sodium Gluconate Complex 125 mg/Sodium Chloride 110 ml @ 110 mls/hr D AILY@1300 IVPB Last administered on 10/07/18at 13:28; Admin Dose 110 MLS/HR; Start 10/06/18 at 13:00; Stop 10/10/18 at 13:59 Assessment/Plan Hospital Course (Demo Recall) 1. End-stage renal disease. The patient had hemodialysis last night. assess daily for hd need. all meds dosed ok. may need to go on line holiday. 2. Anemia. The patient has noted iron deficiency. Continue IV Ferrlecit. Continue Epogen. 3. Mineral bone disorder, monitor calcium and phosphorus levels. 4. Hypernatremia, improved. 5. Hypertension. Continue current blood pressure regimen. 6. Sepsis, etiology is concerning for possible line infection. The patient's blood cultures are positive for enterococcus 4/4, we will likely need to discontinue Perm-A-Cath. We will continue antibiotic regimen. We will discuss with infectious disease and monitor closely. 7. Arrhythmia. Continue to monitor. 8. Dysphagia status post percutaneous endoscopic gastrostomy. Continue tube f eeding. 9. History of respiratory failure. 10. Obesity. Continue dietary modification. JAMIE CASTILLO MD Oct 08, 2018 10:37
[2018-10-08] MEDS: CEFEPIME 2GM/50 ML (PMX) 50 ML IVPB SCH (10:49)
--- NOTE | 2018-10-08 11:11 | PN ---
Date/Time of Note Date/Time of Note DATE: 10/08/18 TIME: 11:11 Assessment/Plan VTE Prophylaxis Risk score (from [facility] [place])>0 risk: 9 SCD applied (from [facility] [place]): Yes Pharmacological prophylaxis: LMWH Lines/Catheters IV Catheter Type (from [facility]): Saline Lock Urinary Cath still in place: No Assessment/Plan Hospital Course -Sepsis gram-positive cocci bacteremia. Continue broad-spectrum antibiotics. Dr. Garcia is following in infection disease consultation. -Hemodialysis dependent end-stage renal disease. Continue hemodialysis per nephrology. Dr. Hamm is following in nephrology consultation. -Status post PPM for heart block -Hypertension -GERD -Anemia of chronic disease -Status post dysphagia with PEG -Status post acute respiratory failure -Obesity Result Diagram: 10/08/18 0530 10/08/18 0530 Results 24hrs Laboratory Tests Test 10/08/18 05:30 White Blood Count 11.2 H Red Blood Count 2.90 L Hemoglobin 8.2 L Hematocrit 26.9 L Mean Corpuscular Volume 92.8 Mean Corpuscular Hemoglobin 28.3 L Mean Corpuscular Hemoglobin Concent 30.5 L Red Cell Distribution Width 18.8 H Platelet Count 388 Mean Platelet Volume 9.9 Immature Granulocytes % 1.900 H Neutrophils % 72.7 Lymphocytes % 9.0 L Monocytes % 5.7 Eosinophils % 10.4 H Basophils % 0.3 Nucleated Red Blood Cells % 0.2 H Immature Granulocytes # 0.210 H Neutrophils # 8.1 H Lymphocytes # 1.0 Monocytes # 0.6 Eosinophils # 1.2 H Basophils # 0.0 Nucleated Red Blood Cells # 0.0 Sodium Level 134 L Potassium Level 3.9 Chloride Level 99 Carbon Dioxide Level 26 Anion Gap 9 Blood Urea Nitrogen 22 #H Creatinine 4.17 H Est Glomerular Filtrat Rate mL/min 11 L Glucose Level 97 Calcium Level 9.9 Phosphorus Level 3.5 Magnesium Level 2.0 Subjective 24 Hr Interval Summary Free Text/Dictation Patient resting, appears comfortable Exam/Review of Systems Exam Vitals Vital Signs Date Temp Pulse Resp B/P (MAP) Pulse Ox O2 O2 Flow FiO2 Time Delivery Rate 10/08/18 109 08:01 10/08/18 98.1 19 103/51 96 07:35 (68) 10/07/18 Room Air 22:47 Intake and Output 10/07/18 10/07/18 10/08/18 1515:00 23:00 07:00 IntakeIntake Total 160 ml 500 ml 300 ml OutputOutput Total 2602 ml 40517 ml BalanceBalance 160 ml -2102 ml -38292 ml Constitutional: well developed Head: normocephalic, atraumatic Neck: supple Respiratory: clear to auscultation Cardiovascular: regular rate and rhythm Gastrointestinal: soft, non-tender Extremities: normal pulses Results Results 24hrs Laboratory Tests Test 10/08/18 05:30 White Blood Count 11.2 H Red Blood Count 2.90 L Hemoglobin 8.2 L Hematocrit 26.9 L Mean Corpuscular Volume 92.8 Mean Corpuscular Hemoglobin 28.3 L Mean Corpuscular Hemoglobin Concent 30.5 L Red Cell Distribution Width 18.8 H Platelet Count 388 Mean Platelet Volume 9.9 Immature Granulocytes % 1.900 H Neutrophils % 72.7 Lymphocytes % 9.0 L Monocytes % 5.7 Eosinophils % 10.4 H Basophils % 0.3 Nucleated Red Blood Cells % 0.2 H Immature Granulocytes # 0.210 H Neutrophils # 8.1 H Lymphocytes # 1.0 Monocytes # 0.6 Eosinophils # 1.2 H Basophils # 0.0 Nucleated Red Blood Cells # 0.0 Sodium Level 134 L Potassium Level 3.9 Chloride Level 99 Carbon Dioxide Level 26 Anion Gap 9 Blood Urea Nitrogen 22 #H Creatinine 4.17 H Est Glomerular Filtrat Rate mL/min 11 L Glucose Level 97 Calcium Level 9.9 Phosphorus Level 3.5 Magnesium Level 2.0 Medications Medication Current Medications Acetaminophen (Tylenol Liquid) 650 mg Q6 PRN GTB MILD PAIN(1-3) OR TEMP>38C; Start 10/05/18 at 14:30 Aspirin (Halfprin) 81 mg DAILY PO Last administered on 10/08/18at 09:21; Admin Dose 81 MG; Start 10/06/18 at 09:00 Bisacodyl (Dulcolax Supp) 10 mg DAILY PRN [place] CONSTIPATION; Start 10/05/18 at 14:30 Famotidine (Pepcid) 20 mg DAILY GTB Last administered on 10/08/18at 09:21; Admin Dose 20 MG; Start 10/06/18 at 09:00 Hydroxyzine HCl (Atarax) 25 mg Q8H PRN GTB ITCHING; Start 10/05/18 at 14:30 Lisinopril (Zestril) 30 mg DAILY GTB Last administered on 10/08/18 09:24; Admin Dose 30 MG; Start 10/06/18 at 09:00 Lorazepam (Ativan) 0.5 mg Q6H PRN GTB ANXIETY; Start 10/05/18 at 14:30 Magnesium Hydroxide (Milk Of Mag) 30 ml DAILY PRN GTB CONSTIPATION; Start 10/05/18 at 14:30 Metoprolol Tartrate (Lopressor) 50 mg BID GTB Last administered on 10/08/18 09:23; Admin Dose 50 MG; Start 10/05/18 at 21:00 Multivit/Ca Carb/ B Cmplx/FA/Prenat (Stephanie-Johnny) 1 tab DAILY GTB Last administered on 10/08/18 09:21; Admin Dose 1 TAB; Start 10/06/18 at 09:00 Polyethylene Glycol (Miralax) 17 gm DAILY GTB Last administered on 10/08/18 09:21; Admin Dose 17 GM; Start 10/06/18 at 09:00 IV Flush (NS 3 ml) 3 ml PER PROTOCOL IV ; Start 10/05/18 at 14:30 Ondansetron HCl (Zofran Inj) 4 mg Q6H PRN IV NAUSEA/VOMITING; Start 10/05/18 at 14:30 Morphine Sulfate (morphine) 2 mg Q4H PRN IV .PAIN 7-10; Start 10/05/18 at 14:30 Vancomycin HCl (Vanco Iv Per Pharmacy) VANCOMYCIN PER PHARMACY PER PROTOCOL XX ; Start 10/05/18 at 15:00 Cefepime HCl 50 ml @ 100 mls/hr Q24H IVPB Last administered on 10/08/18at 10:49; Admin Dose 100 MLS/HR; Start 10/06/18 at 10:00 Epoetin Justen (Epogen (Esrd)) 10,000 units TuThSa@17 SC Last administered on 10/06/18at 17:30; Admin Dose 10,000 UNITS; Start 10/06/18 at 17:00 Heparin Sodium (Porcine) (Heparin (1000 Units/ml)) 4,500 unit PRN CATHETER Last administered on 10/06/18at 10:12; Admin Dose 4,500 UNIT; Start 2/21/19 at 07:30 Ferric Sodium Gluconate Complex 125 mg/Sodium Chloride 110 ml @ 110 mls/hr DAILY@1300 IVPB Last administered on 10/07/18at 13:28; Admin Dose 110 MLS/HR; Start 10/06/18 at 13:00; Stop 10/10/18 at 13:59 GERARDO METZ Oct 08, 2018 11:11
[2018-10-08] MEDS: SOD FERRIC GLUC COMPLX 125 MG in SOD CHLORIDE 0.9% 100 ML IVPB SCH (13:00)
[2018-10-08] MEDS: EPOETIN 10000 UNITS/1 ML INJ (ESRD) SC SCH (17:23)
[2018-10-09] VITALS (25 sets, daily range): BP systolic 93–131; BP diastolic 51–75; PULSE 73–115; RESP 18–19
--- NOTE | 2018-10-09 08:51 | CONS ---
Consult Date/Type/Reason Admit Date/Time Oct 05, 2018 at 11:51 Initial Consult Date Date/Time of Note DATE: 10/09/18 TIME: 08:48 Subjective SUBJECTIVE: The patient is stable, had hemodialysis wednesday, tolerated well. no new labs this am. OBJECTIVE: HEENT: Head is normocephalic. NECK: Supple. HEART: Regular rate. LUNGS: Show diminished breath sounds at the base. ABDOMEN: Soft, nontender to palpation. No rebound or guarding. EXTREMITIES: Negative for clubbing, cyanosis, no edema. DERMATOLOGIC: No rashes. MUSCULOSKELETAL: No joint effusion. NEUROLOGIC: No change in exam. Objective Vitals Vital Signs Date Temp Pulse Resp B/P (MAP) Pulse Ox O2 O2 Flow FiO2 Time Delivery Rate 10/09/18 98.0 90 18 120/57 98 07:26 (78) 10/07/18 Room Air 22:47 Intake and Output 10/08/18 10/08/18 10/09/18 1515:00 23:00 07:00 IntakeIntake Total 860 ml 750 ml BalanceBalance 860 ml 750 ml Results/Medications Result Diagram: 10/08/1830 10/08/18 0530 Home Meds Reported Medications Bisacodyl (Dulcolax) 10 Mg Supp.rect, 10 MG RC DAILY PRN for CONSTIPATION, SUPP.RECT 10/05/18 Na Phos,M-B/Na Phos,Di-Ba (ENEMA [id number]) 133 Ml Enema, 133 ML RC EVERY 72 HOURS PRN for CONSTIPATION, ENEMA 10/05/18 Polyethylene Glycol* (Miralax*) 17 Gm Powd.pack, 17 GM GTB DAILY, #30 PACKET 10/05/18 Epoetin doretha* (Epogen*) 3,000 Unit/1 Ml Vial, 00246 UNIT SC [place]RI, VIAL 10/05/18 Famotidine* (Famotidine*) 20 Mg Tablet, 20 MG GTB DAILY, #30 TAB 10/05/18 Hydroxyzine Hcl* (Hydroxyzine Hcl*) 25 Mg Tablet, 25 MG GTB Q8H PRN for ITCHING, #30 TAB 10/05/18 Ipratropium-Albuterol (Ipratropium-Albuterol) 0.5-3 Mg/3 Ml Ampul.neb, 3 ML INHALATION Q6 PRN for WHEEZING AND SOB, #30 VIAL 10/05/18 Lansoprazole* (Lansoprazole*) 30 Mg Capsule.dr, 30 MG GTB DAILY, CAP 10/05/18 Lisinopril* (Lisinopril*) 30 Mg Tablet, 30 MG GTB DAILY, #30 TAB HOLD IF SBP <110 OR HR <60 10/05/18 Lorazepam* (Lorazepam*) 0.5 Mg Tablet, 0.5 MG GTB Q6 PRN for ANXIETY, TAB 10/05/18 Metoprolol Tartrate* (Lopressor*) 50 Mg Tab, 50 MG GTB BID, #60 TAB HOLD IF SBP <110 OR HR <60 10/05/18 Nystatin-Triamcinolone* (Nystatin-Triamcinolone* Cream) 15 Gm Cream.gm., 1 APPLIC TOP BID, #1 TUB 10/05/18 Protein Supplement (Promod) 946 Ml Liquid, 30 ML GTB BID 10/05/18 Multivit/Ca Carb/B Cmplx/Fa* (Stephanie-Johnny*) 1 Tab Tab, 1 TAB GTB DAILY, TAB 10/05/18 Magnesium Hydroxide* (Milk Of Magnesia*) 400 Mg/5 Ml Oral.susp, 30 ML GTB DAILY PRN for CONSTIPATION, ML 10/05/18 Aspirin (Low Dose Aspirin) 81 Mg Tablet.dr, 81 MG GTB DAILY, #30 TAB 10/05/18 Acetaminophen* (Acetaminophen* Susp) 325 Mg/10.15 Ml Solution, 650 MG GTB Q6 PRN for PAIN OR TEMP ABOVE 38C, ML 10/05/18 Medications Current Medications Acetaminophen (Tylenol Liquid) 650 mg Q6 PRN GTB MILD PAIN(1-3) OR TEMP>38C; Start 10/05/18 at 14:30 Aspirin (Halfprin) 81 mg DAILY PO Last administered on 10/08/18at 09:21; Admin Dose 81 MG; Start 10/06/18 at 09:00 Bisacodyl (Dulcolax Supp) 10 mg DAILY PRN [place] CONSTIPATION; Start 10/05/18 at 14:30 Famotidine (Pepcid) 20 mg DAILY GTB Last administered on 10/08/18at 09:21; Admin Dose 20 MG; Start 10/06/18 at 09:00 Hydroxyzine HCl (Atarax) 25 mg Q8H PRN GTB ITCHING; Start 10/05/18 at 14:30 Lisinopril (Zestril) 30 mg DAILY GTB Last administered on 10/08/18at 09:24; Admin Dose 30 MG; Start 10/06/18 at 09:00 Lorazepam (Ativan) 0.5 mg Q6H PRN GTB ANXIETY; Start 10/05/18 at 14:30 Magnesium Hydroxide (Milk Of Mag) 30 ml DAILY PRN GTB CONSTIPATION; Start 10/05/18 at 14:30 Metoprolol Tartrate (Lopressor) 50 mg BID GTB Last administered on 10/08/18at 21:49; Admin Dose 50 MG; Start 10/05/18 at 21:00 Multivit/Ca Carb/ B Cmplx/FA/Prenat (Stephanie-Johnny) 1 tab DAILY GTB Last administered on 10/08/18 09:21; Admin Dose 1 TAB; Start 10/06/18 at 09:00 Polyethylene Glycol (Miralax) 17 gm DAILY GTB Last administered on 10/08/18 09:21; Admin Dose 17 GM; Start 10/06/18 at 09:00 IV Flush (NS 3 ml) 3 ml PER PROTOCOL IV ; Start 10/05/18 at 14:30 Ondansetron HCl (Zofran Inj) 4 mg Q6H PRN IV NAUSEA/VOMITING; Start 10/05/18 at 14:30 Morphine Sulfate (morphine) 2 mg Q4H PRN IV .PAIN 7-10; Start 10/05/18 at 14:30 Vancomycin HCl (Vanco Iv Per Pharmacy) VANCOMYCIN PER PHARMACY PER PROTOCOL XX ; Start 10/05/18 at 15:00 Cefepime HCl 50 ml @ 100 mls/hr Q24H IVPB Last administered on 10/08/18at 10:49; Admin Dose 100 MLS/HR; Start 10/06/18 at 10:00 Epoetin Doretha (Epogen (Esrd)) 10,000 units TuThSa@17 SC Last administered on 10/08/18at 17:23; Admin Dose 10,000 UNITS; Start 10/06/18 at 17:00 Heparin Sodium (Porcine) (Heparin (1000 Units/ml)) 4,500 unit PRN CATHETER Last administered on 10/06/18at 10:12; Admin Dose 4,500 UNIT; Start 10/06/18 at 07:30 Ferric Sodium Gluconate Complex 125 mg/Sodium Chloride 110 ml @ 110 mls/hr DAILY@1300 IVPB Last administered on 10/08/18at 13:00; Admin Dose 110 MLS/HR; Start 10/06/18 at 13:00; Stop 10/10/18 at 13:59 Assessment/Plan Hospital Course (Demo Recall) 1. End-stage renal disease. The patient had hemodialysis wednesday night. assess daily for hd need. all meds dosed ok. may need to go on line holiday. dialysis today with line culture. if remains positive, will call vasc to remove line. 2. Anemia. The patient has noted iron deficiency. Continue IV Ferrlecit. Continue Epogen. 3. Mineral bone disorder, monitor calcium and phosphorus levels. 4. Hypernatremia, improved. 5. Hypertension. Continue current blood pressure regimen. 6. Sepsis, etiology is concerning for possible line infection. The patient's blood cultures are positive for enterococcus 4/4, we will likely need to discontinue Perm-A-Cath. We will continue antibiotic regimen as vanco s ensitive. We will discuss with infectious disease and monitor closely. 7. Arrhythmia. Continue to monitor. 8. Dysphagia status post percutaneous endoscopic gastrostomy. Continue tube feeding. 9. History of respiratory failure. 10. Obesity. Continue dietary modification. JAMIE CASTILLO MD Oct 09, 2018 08:51
[2018-10-09] MEDS: METOPROLOL 50 MG TAB GTB SCH ×2 (09:00→20:36)
[2018-10-09] MEDS: LISINOPRIL 10 MG TAB GTB SCH (09:00)
[2018-10-09] MEDS: ASPIRIN (EC) 81 MG TAB PO SCH (09:14)
[2018-10-09] MEDS: MULTIVIT/CA CARB/B CMPLX/FA TAB GTB SCH (09:14)
[2018-10-09] MEDS: FAMOTIDINE 20 MG TAB GTB SCH (09:14)
[2018-10-09] MEDS: POLYETHYLENE GLYCOL 17 GM PACKET GTB SCH (09:15)
[2018-10-09] MEDS: CEFEPIME 2GM/50 ML (PMX) 50 ML IVPB SCH (09:15)
--- NOTE | 2018-10-09 11:29 | PN ---
Date/Time of Note Date/Time of Note DATE: 10/09/18 TIME: 11:28 Assessment/Plan VTE Prophylaxis Risk score (from Ns)>0 risk: 3 SCD applied (from [facility] [place]): Yes Pharmacological prophylaxis: LMWH Lines/Catheters IV Catheter Type (from [facility]): Saline Lock Urinary Cath still in place: No Assessment/Plan Hospital Course -Sepsis gram-positive cocci bacteremia. Continue broad-spectrum antibiotics. Dr. Garcia is following in infection disease consultation. -Hemodialysis dependent end-stage renal disease. Continue hemodialysis per nephrology. Dr. Hamm is following in nephrology consultation. -Status post PPM for heart block -Hypertension -GERD -Anemia of chronic disease -Status post dysphagia with PEG -Status post acute respiratory failure -Obesity Result Diagram: 10/08/1852910/08/18529 Subjective 24 Hr Interval Summary Free Text/Dictation Patient has no complaints Exam/Review of Systems Exam Vitals Vital Signs Date Temp Pulse Resp B/P (MAP) Pulse Ox O2 O2 Flow FiO2 Time Delivery Rate 10/09/18 91 08:54 10/09/18 98.0 18 120/57 98 07:26 (78) 10/07/18 Room Air 22:47 Intake and Output 10/08/18 10/08/18 10/09/18 1515:00 23:00 07:00 IntakeIntake Total 860 ml 750 ml BalanceBalance 860 ml 750 ml Constitutional: well developed Head: normocephalic, atraumatic Neck: supple Respiratory: diminished breath sounds Cardiovascular: regular rate and rhythm Gastrointestinal: soft, non-tender Extremities: normal pulses Medications Medication Current Medications Acetaminophen (Tylenol Liquid) 650 mg Q6 PRN GTB MILD PAIN(1-3) OR TEMP>38C; Start 10/05/18 at 14:30 Aspirin (Halfprin) 81 mg DAILY PO Last administered on 10/09/18at 09:14; Admin Dose 81 MG; Start 10/06/18 at 09:00 Bisacodyl (Dulcolax Supp) 10 mg DAILY PRN [place] CONSTIPATION; Start 10/05/18 at 14:30 Famotidine (Pepcid) 20 mg DAILY GTB Last administered on 10/09/18at 09:14; Admin Dose 20 MG; Start 10/06/18 at 09:00 Hydroxyzine HCl (Atarax) 25 mg Q8H PRN GTB ITCHING; Start 10/05/18 at 14:30 Lisinopril (Zestril) 30 mg DAILY GTB Last administered on 10/08/18 09:24; Admin Dose 30 MG; Start 10/06/18 at 09:00 Lorazepam (Ativan) 0.5 mg Q6H PRN GTB ANXIETY; Start 10/05/18 at 14:30 Magnesium Hydroxide (Milk Of Mag) 30 ml DAILY PRN GTB CONSTIPATION; Start 10/05/18 at 14:30 Metoprolol Tartrate (Lopressor) 50 mg BID GTB Last administered on 10/08/18 21:49; Admin Dose 50 MG; Start 10/05/18 at 21:00 Multivit/Ca Carb/ B Cmplx/FA/Prenat (Stephanie-Johnny) 1 tab DAILY GTB Last administered on 10/09/18 09:14; Admin Dose 1 TAB; Start 10/06/18 at 09:00 Polyethylene Glycol (Miralax) 17 gm DAILY GTB Last administered on 10/09/18 09:15; Admin Dose 17 GM; Start 10/06/18 at 09:00 IV Flush (NS 3 ml) 3 ml PER PROTOCOL IV ; Start 10/05/18 at 14:30 Ondansetron HCl (Zofran Inj) 4 mg Q6H PRN IV NAUSEA/VOMITING; Start 10/05/18 at 14:30 Morphine Sulfate (morphine) 2 mg Q4H PRN IV .PAIN 7-10; Start 10/05/18 at 14:30 Vancomycin HCl (Vanco Iv Per Pharmacy) VANCOMYCIN PER PHARMACY PER PROTOCOL XX ; Start 10/05/18 at 15:00 Cefepime HCl 50 ml @ 100 mls/hr Q24H IVPB Last administered on 10/09/18 09:15; Admin Dose 100 MLS/HR; Start 10/06/18 at 10:00 Epoetin Justen (Epogen (Esrd)) 10,000 units TuThSa@17 SC Last administered on 10/08/18 17:23; Admin Dose 10,000 UNITS; Start 10/06/18 at 17:00 Heparin Sodium (Porcine) (Heparin (1000 Units/ml)) 4,500 unit PRN CATHETER Last administered on 10/06/18at 10:12; Admin Dose 4,500 UNIT; Start 10/06/18 at 07:30 Ferric Sodium Gluconate Complex 125 mg/Sodium Chloride 110 ml @ 110 mls/hr DAILY@1300 IVPB Last administered on 10/08/18at 13:00; Admin Dose 110 MLS/HR; Start 10/06/18 at 13:00; Stop 10/10/18 at 13:59 GERARDO METZ Oct 09, 2018 11:29
[2018-10-09] MEDS: SOD FERRIC GLUC COMPLX 125 MG in SOD CHLORIDE 0.9% 100 ML IVPB SCH (13:42)
[2018-10-09] MEDS: HEPARIN 1000 UNITS/ML 10 ML INJ CATHETER SCH (19:25)
[2018-10-10 00:43] VITALS: BP 97/53; PULSE 95; RESP 18
[2018-10-10 07:23] VITALS: BP 110/63; PULSE 93; RESP 16
[2018-10-10] MEDS: MULTIVIT/CA CARB/B CMPLX/FA TAB GTB SCH (09:00)
[2018-10-10] MEDS: POLYETHYLENE GLYCOL 17 GM PACKET GTB SCH (09:00)
[2018-10-10] MEDS: FAMOTIDINE 20 MG TAB GTB SCH (09:40)
[2018-10-10] MEDS: METOPROLOL 50 MG TAB GTB SCH ×2 (09:40→20:19)
[2018-10-10] MEDS: ASPIRIN (EC) 81 MG TAB PO SCH (09:40)
[2018-10-10] MEDS: LISINOPRIL 10 MG TAB GTB SCH (09:41)
[2018-10-10] MEDS: CEFEPIME 2GM/50 ML (PMX) 50 ML IVPB SCH (10:38)
--- NOTE | 2018-10-10 10:58 | PN ---
Date/Time of Note Date/Time of Note DATE: 10/10/18 TIME: 10:58 Assessment/Plan VTE Prophylaxis Risk score (from Ns)>0 risk: 3 SCD applied (from Ns): Yes Lines/Catheters IV Catheter Type (from [facility]rsg): Saline Lock Urinary Cath still in place: No Assessment/Plan Assessment/Plan -Sepsis gram-positive cocci bacteremia. Continue broad-spectrum antibiotics. Dr. Garcia is following in infection disease consultation. -Hemodialysis dependent end-stage renal disease. Continue hemodialysis per nephrology. Dr. Hamm is following in nephrology consultation. -Status post PPM for heart block -Hypertension -GERD -Anemia of chronic disease -Status post dysphagia with PEG -Status post acute respiratory failure -Obesity Result Diagram: 10/08/1852910/08/18 0530 Results 24hrs Laboratory Tests Test 10/10/18 04:26 Random Vancomycin Level 18.0 Exam/Review of Systems Exam Vitals Vital Signs Date Temp Pulse Resp B/P (MAP) Pulse Ox O2 O2 Flow FiO2 Time Delivery Rate 10/10/18 97.9 93 16 110/63 100 07:23 (79) 10/09/18 Room Air 16:10 Intake and Output 10/09/18 10/09/18 10/10/18 1414:59 22:59 06:59 IntakeIntake Total 700 ml OutputOutput Total 2600 ml BalanceBalance -1900 ml Results Results 24hrs Laboratory Tests Test 10/10/18 04:26 Random Vancomycin Level 18.0 Medications Medication Current Medications Acetaminophen (Tylenol Liquid) 650 mg Q6 PRN GTB MILD PAIN(1-3) OR TEMP>38C; Start 10/05/18 at 14:30 Aspirin (Halfprin) 81 mg DAILY PO Last administered on 10/10/18at 09:40; Admin Dose 81 MG; Start 10/06/18 at 09:00 Bisacodyl (Dulcolax Supp) 10 mg DAILY PRN [place] CONSTIPATION; Start 10/05/18 at 14:30 Famotidine (Pepcid) 20 mg DAILY GTB Last administered on 10/10/18at 09:40; Admin Dose 20 MG; Start 10/06/18 at 09:00 Hydroxyzine HCl (Atarax) 25 mg Q8H PRN GTB ITCHING; Start 10/05/18 at 14:30 Lisinopril (Zestril) 30 mg DAILY GTB Last administered on 10/10/18 09:41; Admin Dose 30 MG; Start 10/06/18 at 09:00 Lorazepam (Ativan) 0.5 mg Q6H PRN GTB ANXIETY; Start 10/05/18 at 14:30 Magnesium Hydroxide (Milk Of Mag) 30 ml DAILY PRN GTB CONSTIPATION; Start 10/05/18 at 14:30 Metoprolol Tartrate (Lopressor) 50 mg BID GTB Last administered on 10/10/18 09:40; Admin Dose 50 MG; Start 10/05/18 at 21:00 Multivit/Ca Carb/ B Cmplx/FA/Prenat (Stephanie-Johnny) 1 tab DAILY GTB Last administered on 10/09/18 09:14; Admin Dose 1 TAB; Start 10/06/18 at 09:00 Polyethylene Glycol (Miralax) 17 gm DAILY GTB Last administered on 10/09/18 09:15; Admin Dose 17 GM; Start 10/06/18 at 09:00 IV Flush (NS 3 ml) 3 ml PER PROTOCOL IV ; Start 10/05/18 at 14:30 Ondansetron HCl (Zofran Inj) 4 mg Q6H PRN IV NAUSEA/VOMITING; Start 10/05/18 at 14:30 Morphine Sulfate (morphine) 2 mg Q4H PRN IV .PAIN 7-10; Start 10/05/18 at 14:30 Vancomycin HCl (Vanco Iv Per Pharmacy) VANCOMYCIN PER PHARMACY PER PROTOCOL XX ; Start 10/05/18 at 15:00 Cefepime HCl 50 ml @ 100 mls/hr Q24H IVPB Last administered on 10/10/18at 10:38; Admin Dose 100 MLS/HR; Start 10/06/18 at 10:00 Epoetin Justen (Epogen (Esrd)) 10,000 units TuThSa@17 SC Last administered on 10/08/18 17:23; Admin Dose 10,000 UNITS; Start 10/06/18 at 17:00 Heparin Sodium (Porcine) (Heparin (1000 Units/ml)) 4,500 unit PRN CATHETER Last administered on 10/09/18 19:25; Admin Dose 4,500 UNIT; Start 10/06/18 at 07:30 Ferric Sodium Gluconate Complex 125 mg/Sodium Chloride 110 ml @ 110 mls/hr DAILY@1300 IVPB Last administered on 10/09/18at 13:42; Admin Dose 110 MLS/HR; Start 10/06/18 at 13:00; Stop 10/10/18 at 13:59 FREDDY LING Oct 10, 2018 10:58
[2018-10-10] MEDS: SOD FERRIC GLUC COMPLX 125 MG in SOD CHLORIDE 0.9% 100 ML IVPB SCH (12:05)
[2018-10-10] MEDS ORDERED: VANCOMYCIN 1 GM 250 ML IVPB SCH (13:00)
[2018-10-10 14:28] VITALS: BP 108/57; PULSE 81; RESP 16
--- NOTE | 2018-10-10 15:40 | PN ---
DATE: 10/10/2018 SUBJECTIVE: The patient is stable. No events overnight. No fevers, chills, nausea, vomiting. OBJECTIVE: VITAL SIGNS: Blood pressure is 110/63, pulse 93, respirations 16, temperature 97.9. HEENT: Head is normocephalic. NECK: Supple. HEART: Regular rate. LUNGS: Show diminished breath sounds at the base. ABDOMEN: Soft, nontender to palpation without rebound or guarding. EXTREMITIES: Negative for clubbing, cyanosis, no edema. DERMATOLOGIC: No rashes. MUSCULOSKELETAL: No joint effusion. NEUROLOGIC: No change in exam. MEDICATIONS: Reviewed. LABORATORY DATA: Has been reviewed. ASSESSMENT AND PLAN: 1. End-stage renal disease. The patient is currently dialysis dependent. Last hemodialysis was yes terday. Plan for dialysis again tomorrow. 2. Anemia. Monitor hemoglobin and hematocrit levels. 3. Mineral bone disorder. Monitor calcium and phosphorus levels. 4. Hypertension. Continue current blood pressure regimen. 5. Sepsis. Etiology is likely from line infection. The patient's blood cultures are positive for e nterococcus. The patient's Perm-A-Cath will likely need to be discontinued. Will discuss with prima ry team. Will also consult vascular surgery or IR to remove Perm-A-Cath. 6. Arrhythmia. Continue to monitor. 7. Dysphagia, status post PEG. Continue tube feedings. 8. History of respiratory failure. 9. Obesity. Continue dietary modification. Dictated By: KAYLENE SÁNCHEZ DO NR/NTS Conf#: [id number] DID#: [id number] CC: LEW RODRÍGUEZ MD;*EndCC*
[2018-10-10] MEDS: AMPICILLIN 1 GM/NS (PMX) 50 ML IVPB SCH (18:48)
[2018-10-10 19:54] VITALS: BP 93/52; PULSE 90; RESP 18
--- NOTE | 2018-10-10 20:23 | CONS ---
DATE OF ADMISSION: 10/05/2018 DATE OF CONSULTATION: 10/10/2018 TYPE OF CONSULTATION: Infectious Disease. REASON FOR CONSULTATION: Antibiotic management. HISTORY OF PRESENT ILLNESS: Sherita Merlos is a 58-year-old female who was transferred from her [facility] facility for evaluation of elevated white count and is being seen for antibiotic management . Past problems include: 1. Ventilatory dependent respiratory failure. 2. Tracheostomy. 3. G-tube placement. 4. End-stage renal disease on hemodialysis. 5. Hypertension. Acutely, the patient's white count was 21.6, H and H of 7/22.7, platelet count 295 ,000. BUN and creatinine 45/4.80, glucose random was 119. PAST MEDICAL HISTORY: Operations as outlined. FAMILY HISTORY: Noncontributory. SOCIAL HISTORY: She does not smoke, drink or abuse drugs. ALLERGIES: NONE TO PENICILLIN, SULFA OR FOODS. MEDICATIONS: Per chart. REVIEW OF SYSTEMS: As per HPI. PHYSICAL EXAMINATION: GENERAL: The patient is a frail, bedbound female. VITAL SIGNS: On admission, her T-max is 100.6. SKIN: Without generalized rash. She has skin breakdown. A dialysis catheter in the right upper [address] without inflammatory changes. HEENT: Within normal limits. NECK: Tracheostomy site is clean without inflammatory changes. Supple. LYMPH NODES: None palpable. CHEST: Decreased breath sounds at the bases. HEART: Without murmur or gallop. ABDOMEN: Soft. G-tube is noted without erythema or induration. EXTREMITIES: Atrophy without cyanosis, clubbing, or edema. RECTAL AND GENITAL: Deferred. NEUROLOGIC: No focal neurological abnormalities. The patient was started on vancomycin and cefepime for sepsis. MICROBIOLOGY: The patient grew out enterococcus species from 4 blood cultures. The enterococcus was sensitive to ampicillin. However, chest x-ray shows right-sided dialysis catheter, left-sided pacem ramya. IMPRESSION AND PLAN: The patient has enterococcus in the blood. I would be concerned about the hemo dialysis catheter and that may have to come out. The patient is being followed by Dr. Hamm. He n otes that the patient's Perm-A-Cath will likely need to be discontinued. Will discuss with primary t eam. We will also consult vascular surgery or IR to remove the Perm-A-Cath. I concur with this cour se of events. I will dictate my findings to Dr. Rodríguez, to Dr. Hmam and nurse practitioner Ashia skinner. Dictated By: MARSHALL WINTER MD, JD/GEOVANI Conf#: [id number] DID#: [id number] CC: LEW RODRÍGUEZ MD;*EndCC*
[2018-10-11] VITALS (17 sets, daily range): BP systolic 76–135; BP diastolic 26–117; PULSE 61–107; RESP 16–18
[2018-10-11] MEDS: AMPICILLIN 1 GM/NS (PMX) 50 ML IVPB SCH ×4 (00:08→17:09)
--- NOTE | 2018-10-11 08:38 | PN ---
DATE: 10/11/2018 SUBJECTIVE: The patient stable, no events overnight. OBJECTIVE: VITAL SIGNS: Blood pressure is 104/53, respirations 16, pulse 98, temperature 97.8. HEENT: Head is normocephalic. NECK: Supple. HEART: Regular rate. LUNGS: Show diminished breath sounds at the base. ABDOMEN: Soft, nontender to palpation without rebound or guarding. EXTREMITIES: Negative for clubbing, cyanosis, no edema. DERMATOLOGIC: No rashes. MUSCULOSKELETAL: No joint effusion. NEUROLOGIC: No focal deficits. MEDICATIONS: Reviewed. LABORATORY DATA: Pending. ASSESSMENT AND PLAN: 1. End-stage renal disease. Plan is for hemodialysis today. 2. Sepsis, likely from line infection. The patient's blood cultures positive for enterococcus. I a nticipate removal of Perm-A-Cath for a line holiday after hemodialysis today. 3. Anemia. Monitor hemoglobin and hematocrit levels. Continue Epogen. 4. Mineral bone disorder. Monitor calcium and phosphorus levels. 5. Hypertension. Continue current blood pressure regimen. 6. Arrhythmia. Continue to monitor. 7. Dysphagia. Continue tube feeding. 8. History of respiratory failure. 9. Obesity. Continue dietary modification. Dictated By: KAYLENE SÁNCHEZ DO NR/NTS Conf#: [id number] DID#: [id number] CC: LEW RODRÍGUEZ MD;*EndCC*
[2018-10-11] MEDS: ASPIRIN (EC) 81 MG TAB PO SCH (08:42)
[2018-10-11] MEDS: MULTIVIT/CA CARB/B CMPLX/FA TAB GTB SCH (08:42)
[2018-10-11] MEDS: FAMOTIDINE 20 MG TAB GTB SCH (08:42)
[2018-10-11] MEDS: LISINOPRIL 10 MG TAB GTB SCH (08:43)
[2018-10-11] MEDS: POLYETHYLENE GLYCOL 17 GM PACKET GTB SCH (08:43)
[2018-10-11] MEDS: METOPROLOL 50 MG TAB GTB SCH ×2 (08:43→21:29)
[2018-10-11] MEDS: HEPARIN 1000 UNITS/ML 10 ML INJ CATHETER SCH (14:13)
--- NOTE | 2018-10-11 14:42 | CONS ---
Assessment/Plan Assessment/Plan Hospital Course (Demo Recall) Patient is alert lying comfortably in bed no fevers overnight Microbiology: Blood culture on admission grew enterococcus species susceptible to ampicillin Antimicrobials: Ampicillin IV, status post vancomycin and cefepime Indwelling: Right chest permacath Physical examination: Morbidly obese well-developed -[place] woman who is awake in no distress. Head atraumatic normocephalic. Neck is obese. Chest rise symmetrical. Right chest permacath present. Breath sounds clear, di minished bases. Heart: S1-S2. Abdomen obese, soft. Bowel sounds present. Extremities without cyanosis. Assessment: 1. Sepsis, present on admission 2. Enterococcal bacteremia likely secondary to infected permacath, rule out endocarditis 3. Morbid obesity 4. End-stage renal disease, hemodialysis dependent 5. Arrhythmia status post permanent pacemaker Plan: Patient is stable we will will order 2D echo, continue her on current antibiotics, consider discontinue permacath Consultation Date/Type/Reason Admit Date/Time Oct 05, 2018 at 11:51 Initial Consult Date Type of Consult id Date/Time of Note DATE: 10/11/18 TIME: 14:41 Exam/Review of Systems Exam Vitals Vital Signs Date Temp Pulse Resp B/P (MAP) Pulse Ox O2 O2 Flow FiO2 Time Delivery Rate 10/11/18 97.9 103 17 91/51 (64) 100 Room Air 14:08 Intake and Output 10/10/18 10/10/18 10/11/18 1515:00 23:00 07:00 IntakeIntake Total 880 ml 780 ml 100 ml BalanceBalance 880 ml 780 ml 100 ml Results Result Diagram: 10/08/1852910/08/18529 Medications Medication Current Medications Acetaminophen (Tylenol Liquid) 650 mg Q6 PRN GTB MILD PAIN(1-3) OR TEMP>38C; Start 10/05/18 at 14:30 Aspirin (Halfprin) 81 mg DAILY PO Last administered on 10/11/18at 08:42; Admin Dose 81 MG; Start 10/06/18 at 09:00 Bisacodyl (Dulcolax Supp) 10 mg DAILY PRN [place] CONSTIPATION; Start 10/05/18 at 14:30 Famotidine (Pepcid) 20 mg DAILY GTB Last administered on 10/11/18at 08:42; Admin Dose 20 MG; Start 10/06/18 at 09:00 Hydroxyzine HCl (Atarax) 25 mg Q8H PRN GTB ITCHING; Start 10/05/18 at 14:30 Lisinopril (Zestril) 30 mg DAILY GTB Last administered on 10/10/18 09:41; Admin Dose 30 MG; Start 10/06/18 at 09:00 Lorazepam (Ativan) 0.5 mg Q6H PRN GTB ANXIETY; Start 10/05/18 at 14:30 Magnesium Hydroxide (Milk Of Mag) 30 ml DAILY PRN GTB CONSTIPATION; Start 10/05/18 at 14:30 Metoprolol Tartrate (Lopressor) 50 mg BID GTB Last administered on 10/10/18 09:40; Admin Dose 50 MG; Start 10/05/18 at 21:00 Multivit/Ca Carb/ B Cmplx/FA/Prenat (Stephanie-Johnny) 1 tab DAILY GTB Last administer ed on 10/11/18 08:42; Admin Dose 1 TAB; Start 10/06/18 at 09:00 Polyethylene Glycol (Miralax) 17 gm DAILY GTB Last administered on 10/11/18 08:43; Admin Dose 17 GM; Start 10/06/18 at 09:00 IV Flush (NS 3 ml) 3 ml PER PROTOCOL IV ; Start 10/05/18 at 14:30 Ondansetron HCl (Zofran Inj) 4 mg Q6H PRN IV NAUSEA/VOMITING; Start 10/05/18 at 14:30 Morphine Sulfate (morphine) 2 mg Q4H PRN IV .PAIN 7-10; Start 10/05/18 at 14:30 Epoetin Justen (Epogen (Esrd)) 10,000 units TuThSa@17 SC Last administered on 10/08/18 17:23; Admin Dose 10,000 UNITS; Start 10/06/18 at 17:00 Heparin Sodium (Porcine) (Heparin (1000 Units/ml)) 4,500 unit PRN CATHETER Last administered on 10/11/18 14:13; Admin Dose 4,500 UNIT; Start 10/06/18 at 07:30 Ampicillin 50 ml @ 100 mls/hr Q6 IVPB Last administered on 10/11/18 14:14; Admin Dose 100 MLS/HR; Start 10/10/18 at 18:00 BEST ALANIS NP Oct 11, 2018 14:42
--- NOTE | 2018-10-11 14:53 | PN ---
Date/Time of Note Date/Time of Note DATE: 10/11/18 TIME: 14:53 Assessment/Plan VTE Prophylaxis Risk score (from Ns)>0 risk: 3 SCD applied (from [facility]): Yes Pharmacological prophylaxis: other Lines/Catheters IV Catheter Type (from [facility]): Peripheral IV Urinary Cath still in place: No Assessment/Plan Assessment/Plan -Sepsis gram-positive cocci bacteremia. Continue broad-spectrum antibiotics. Dr. Garcia is following in infection disease consultation. -Hemodialysis dependent end-stage renal disease. Continue hemodialysis per nephrology. Dr. Hamm is following in nephrology consultation. -Status post PPM for heart block -Hypertension -GERD -Anemia of chronic disease -Status post dysphagia with PEG -Status post acute respiratory failure -Obesity Result Diagram: 10/08/1852910/08/18529 Exam/Review of Systems Exam Vitals Vital Signs Date Temp Pulse Resp B/P (MAP) Pulse Ox O2 O2 Flow FiO2 Time Delivery Rate 10/11/18 97.9 103 17 91/51 (64) 100 Room Air 14:08 Intake and Output 10/10/18 10/10/18 10/11/18 1414:59 22:59 06:59 IntakeIntake Total 880 ml 780 ml 100 ml BalanceBalance 880 ml 780 ml 100 ml Medications Medication Current Medications Acetaminophen (Tylenol Liquid) 650 mg Q6 PRN GTB MILD PAIN(1-3) OR TEMP>38C; Start 10/05/18 at 14:30 Aspirin (Halfprin) 81 mg DAILY PO Last administered on 10/11/18at 08:42; Admin Dose 81 MG; Start 10/06/18 at 09:00 Bisacodyl (Dulcolax Supp) 10 mg DAILY PRN [place] CONSTIPATION; Start 10/05/18 at 14:30 Famotidine (Pepcid) 20 mg DAILY GTB Last administered on 10/11/18at 08:42; Admin Dose 20 MG; Start 10/06/18 at 09:00 Hydroxyzine HCl (Atarax) 25 mg Q8H PRN GTB ITCHING; Start 10/05/18 at 14:30 Lisinopril (Zestril) 30 mg DAILY GTB Last administered on 10/10/18at 09:41; Admin Dose 30 MG; Start 10/06/18 at 09:00 Lorazepam (Ativan) 0.5 mg Q6H PRN GTB ANXIETY; Start 10/05/18 at 14:30 Magnesium Hydroxide (Milk Of Mag) 30 ml DAILY PRN GTB CONSTIPATION; Start 10/05/18 at 14:30 Metoprolol Tartrate (Lopressor) 50 mg BID GTB Last administered on 10/10/18 09:40; Admin Dose 50 MG; Start 10/05/18 at 21:00 Multivit/Ca Carb/ B Cmplx/FA/Prenat (Stephanie-Johnny) 1 tab DAILY GTB Last administered on 10/11/18 08:42; Admin Dose 1 TAB; Start 10/06/18 at 09:00 Polyethylene Glycol (Miralax) 17 gm DAILY GTB Last administered on 10/11/18 08:43; Admin Dose 17 GM; Start 10/06/18 at 09:00 IV Flush (NS 3 ml) 3 ml PER PROTOCOL IV ; Start 10/05/18 at 14:30 Ondansetron HCl (Zofran Inj) 4 mg Q6H PRN IV NAUSEA/VOMITING; Start 10/05/18 at 14:30 Morphine Sulfate (morphine) 2 mg Q4H PRN IV .PAIN 7-10; Start 10/05/18 at 14:30 Epoetin Justen (Epogen (Esrd)) 10,000 units TuThSa@17 SC Last administered on 10/08/18 17:23; Admin Dose 10,000 UNITS; Start 10/06/18 at 17:00 Heparin Sodium (Porcine) (Heparin (1000 Units/ml)) 4,500 unit PRN CATHETER Last administered on 10/11/18 14:13; Admin Dose 4,500 UNIT; Start 10/06/18 at 07:30 Ampicillin 50 ml @ 100 mls/hr Q6 IVPB Last administered on 10/11/18 14:14; Admin Dose 100 MLS/HR; Start 10/10/18 at 18:00 FREDDY LING Oct 11, 2018 14:53
[2018-10-11] MEDS: EPOETIN 10000 UNITS/1 ML INJ (ESRD) SC SCH (17:09)
[2018-10-12] MEDS: AMPICILLIN 1 GM/NS (PMX) 50 ML IVPB SCH ×4 (00:02→18:36)
[2018-10-12 01:01] VITALS: BP 101/48; PULSE 110; RESP 18
[2018-10-12 07:48] VITALS: BP 94/48; PULSE 98; RESP 18
[2018-10-12] MEDS: LISINOPRIL 10 MG TAB GTB SCH (08:54)
[2018-10-12] MEDS: METOPROLOL 50 MG TAB GTB SCH ×2 (08:54→20:51)
[2018-10-12] MEDS: FAMOTIDINE 20 MG TAB GTB SCH (08:54)
[2018-10-12] MEDS: ASPIRIN (EC) 81 MG TAB PO SCH (08:54)
[2018-10-12] MEDS: MULTIVIT/CA CARB/B CMPLX/FA TAB GTB SCH (08:54)
[2018-10-12] MEDS: POLYETHYLENE GLYCOL 17 GM PACKET GTB SCH (08:55)
--- NOTE | 2018-10-12 09:18 | PN ---
DATE: 10/12/2018 SUBJECTIVE: The patient had hemodialysis yesterday, tolerated well. No other events noted. OBJECTIVE: VITAL SIGNS: Blood pressure is 94/48, respirations 18, pulse 98, temperature 97.5. HEENT: Head is normocephalic. NECK: Supple. HEART: Regular rate. LUNGS: Show diminished breath sounds at the base. ABDOMEN: Soft, nontender to palpation without rebound or guarding. EXTREMITIES: Negative for clubbing, cyanosis, no edema. DERMATOLOGIC: No rashes. MUSCULOSKELETAL: No joint effusion. NEUROLOGIC: No change in exam. MEDICATIONS: Reviewed. LABORATORY DATA: From 10/12/2018 was reviewed. ASSESSMENT AND PLAN: 1. End-stage renal disease. The patient had hemodialysis yesterday. Plan is to remove the patient' s Perm-A-Cath due to underlying line infection. Anticipate next hemodialysis in 1 to 2 days. 2. Sepsis, likely from line infection. The patient's Perm-A-Cath will be removed. The patient will have a line holiday. Continue antibiotic therapy. 3. Anemia. Continue to monitor hemoglobin and hematocrit levels. Continue Epogen. 4. Mineral bone disorder, monitor calcium and phosphorus levels. 5. Hypertension. Continue current blood pressure regimen. 6. Arrhythmia. Continue to monitor. 7. Dysphagia. 8. History of respiratory failure. 9. Obesity. Continue dietary modification. Dictated By: KAYLENE JOSUE/NTS Conf#: [id number] DID#: [id number] CC: LEW RODRÍGUEZ MD;*EndCC*
--- NOTE | 2018-10-12 11:20 | CONS ---
Assessment/Plan Assessment/Plan Hospital Course (Demo Recall) No events Microbiology: Blood culture on admission grew enterococcus species susceptible to ampicillin Antimicrobials: Ampicillin IV, status post vancomycin and cefepime Indwelling: Right chest permacath Physical examination: Morbidly obese well-developed -[place] woman who is awake in no distress. Head atraumatic normocephalic. Neck is obese. Chest rise symmetrical. Right chest permacath present. Breath sounds clear, diminished bases. Heart: S1-S2. Abdomen obese, soft. Bowel sounds present. Extremities without cyanosis. Assessment: 1. Sepsis, present on admission 2. Enterococcal bacteremia likely secondary to infected permacath, rule out endocarditis 3. Morbid obesity 4. End-stage renal disease, hemodialysis dependent 5. Arrhythmia status post permanent pacemaker Plan: Stable, repeat bld cx neg, pending 2D ECHO, plan to remove HD cath Consultation Date/Type/Reason Admit Date/Time Oct 05, 2018 at 11:51 Initial Consult Date Type of Consult id Date/Time of Note DATE: 10/12/18 TIME: 11:20 Exam/Review of Systems Exam Vitals Vital Signs Date Temp Pulse Resp B/P (MAP) Pulse Ox O2 O2 Flow FiO2 Time Delivery Rate 10/12/18 97.5 98 18 94/48 (63) 97 Room Air 07:48 Intake and Output 10/11/18 10/11/18 10/12/18 1515:00 23:00 07:00 IntakeIntake Total 50 ml 50 ml 50 ml OutputOutput Total 1900 ml BalanceBalance -1850 ml 50 ml 50 ml Results Result Diagram: 10/12/18 0442 10/12/18 0442 Results 24hrs Laboratory Tests Test 10/12/18 04:42 White Blood Count 11.2 H Red Blood Count 3.29 L Hemoglobin 9.1 L Hematocrit 30.5 L Mean Corpuscular Volume 92.7 Mean Corpuscular Hemoglobin 27.7 L Mean Corpuscular Hemoglobin Concent 29.8 L Red Cell Distribution Width 19.6 H Platelet Count 391 Mean Platelet Volume 9.6 Immature Granulocytes % 2.300 H Neutrophils % 62.3 Lymphocytes % 15.2 Monocytes % 5.1 Eosinophils % 14.8 H Basophils % 0.3 Nucleated Red Blood Cells % 0.0 Immature Granulocytes # 0.260 H Neutrophils # 7.0 Lymphocytes # 1.7 Monocytes # 0.6 Eosinophils # 1.7 H Basophils # 0.0 Nucleated Red Blood Cells # 0.0 Sodium Level 136 Potassium Level 3.9 Chloride Level 98 Carbon Dioxide Level 22 Anion Gap 16 H Blood Urea Nitrogen 15 Creatinine 5.49 H Est Glomerular Filtrat Rate mL/min 8 L Glucose Level 83 Calcium Level 10.8 H Phosphorus Level 5.3 H Magnesium Level 2.1 Medications Medication Current Medications Acetaminophen (Tylenol Liquid) 650 mg Q6 PRN GTB MILD PAIN(1-3) OR TEMP>38C; Start 10/05/18 at 14:30 Aspirin (Halfprin) 81 mg DAILY PO Last administered on 10/12/18 08:54; Admin Dose 81 MG; Start 10/06/18 at 09:00 Bisacodyl (Dulcolax Supp) 10 mg DAILY PRN [place] CONSTIPATION; Start 10/05/18 at 14:30 Famotidine (Pepcid) 20 mg DAILY GTB Last administered on 10/12/18 08:54; Admin Dose 20 MG; Start 10/06/18 at 09:00 Hydroxyzine HCl (Atarax) 25 mg Q8H PRN GTB ITCHING; Start 10/05/18 at 14:30 Lisinopril (Zestril) 30 mg DAILY GTB Last administered on 10/10/18 09:41; Admin Dose 30 MG; Start 10/06/18 at 09:00 Lorazepam (Ativan) 0.5 mg Q6H PRN GTB ANXIETY; Start 10/05/18 at 14:30 Magnesium Hydroxide (Milk Of Mag) 30 ml DAILY PRN GTB CONSTIPATION; Start 10/05/18 at 14:30 Metoprolol Tartrate (Lopressor) 50 mg BID GTB Last administered on 10/11/18 21:29; Admin Dose 50 MG; Start 10/05/18 at 21:00 Multivit/Ca Carb/ B Cmplx/FA/Prenat (Stephanie-Johnny) 1 tab DAILY GTB Last administered on 10/12/18 08:54; Admin Dose 1 TAB; Start 10/06/18 at 09:00 Polyethylene Glycol (Miralax) 17 gm DAILY GTB Last administered on 10/12/18 08:55; Admin Dose 17 GM; Start 10/06/18 at 09:00 IV Flush (NS 3 ml) 3 ml PER PROTOCOL IV ; Start 10/05/18 at 14:30 Ondansetron HCl (Zofran Inj) 4 mg Q6H PRN IV NAUSEA/VOMITING; Start 10/05/18 at 14:30 Morphine Sulfate (morphine) 2 mg Q4H PRN IV .PAIN 7-10; Start 10/05/18 at 14:30 Epoetin Justen (Epogen (Esrd)) 10,000 units TuThSa@17 SC Last administered on 10/11/18at 17:09; Admin Dose 10,000 UNITS; Start 10/06/18 at 17:00 Heparin Sodium (Porcine) (Heparin (1000 Units/ml)) 4,500 unit PRN CATHETER Last administered on 10/11/18at 14:13; Admin Dose 4,500 UNIT; Start 10/06/18 at 07:30 Ampicillin 50 ml @ 100 mls/hr Q6 IVPB Last administered on 10/12/18at 05:34; Admin Dose 100 MLS/HR; Start 10/10/18 at 18:00 BEST ALANIS NP Oct 12, 2018 11:20
[2018-10-12 14:45] VITALS: BP 98/56; PULSE 63; RESP 18
--- NOTE | 2018-10-12 14:55 | PN ---
DATE: 10/12/2018 SUBJECTIVE: Follow up on history of cardiac arrest, dysphagia, hypertension, end-stage renal disease . The patient is breathing comfortably on room air. The patient recently had decannulation done at [facility]. Denies any chest pain or shortness of breath. No resting leg pain. No reported abdominal pain. The patient is tolerating pureed diet. No reported bleeding. No report ed seizure. The patient currently continues to have mild leukocytosis. PHYSICAL EXAMINATION: GENERAL: Revealed the patient to be awake, alert. VITAL SIGNS: T-max of 99, pulse 110, respiration 18, blood pressure 101/48 now down to 94/48, O2 sat 97% on room air. HEENT: No eye discharge or redness. Conjunctivae and lids are normal. Nose and ears are normal. NECK: Supple. No mass, no thyromegaly. The tracheostomy site has been healing well. CHEST: Diminished air entry at bases. No use of accessory muscles. CARDIOVASCULAR: S1, S2 normal. No murmur. ABDOMEN: Soft, nondistended, nontender. G-tube in place. EXTREMITIES: No ankle edema. Pedal pulses are palpable. NEUROLOGIC: The patient is awake, alert, follows simple commands, although confused. Does have gene ralized weakness. LABORATORY DATA: This morning, WBC 11.2, hemoglobin 9.1, platelet 391. Sodium 136, potassium 3.9, B UN 15, creatinine 5.4, glucose 83, calcium 10.8. IMPRESSION: 1. 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 Continue IV ampicillin. Plan is to remove Per mCath due to underlying line infection. Anticipate next hemodialysis in 1 to 2 days. 2. End-stage renal disease. Continue to monitor electrolytes. The patient is waiting for a line ho [facility]. 3. Hypertension. The patient's blood pressure is on the low side of normal. We will decrease lisin opril to 10 mg from 30 mg. 4. Anoxic encephalopathy. The patient still remains confused, although follows simple commands. We will continue to monitor. 5. Anemia of chronic kidney disease. Continue Epogen 10,000 units. 6. Anxiety. Continue Ativan on p.r.n. basis. 7. Mild hypercalcemia. We will continue to monitor. The patient is being seen by Dr. Hamm. We will wait for his recommendation. The patient is also being seen by Dr. Garcia from infectious disease standpoint. Dictated By: LEW CARRILLO/GEOVANI Conf#: [id number] DID#: [id number]
--- NOTE | 2018-10-12 15:22 | HPN ---
Date/Time of Note Date/Time of Note DATE: 10/12/18 TIME: 15:21 Interval H&P Admission Note Pt. seen H&P reviewed: No system changes JAVIER AGUIRRE MD Oct 12, 2018 15:22
--- NOTE | 2018-10-12 18:47 | RADRPT ---
Echocardiogram Report Patient Name: JAYJAY TAFOYAPatient ID: [id number] : 1960 (58y 8m)Study Date: 10/11/2018 3:46:55 PM Gender: FAccession #: [id number] Tech: Ace Gramajo [facility] Location: [address] Ref.Physician: BEST ALANIS Height(Cm): BSA: Weight(Kg): Quality: Technically Difficult StudyAccount #: Procedures: Echocardiographic Report: Transthoracic echocardiogram with complete 2D, M-Mode, and doppler examination. Indications: Bacteremia, r/o vegetation. Measurements: 2D/M Mode Doppler Measurement Value Normal Range Measurement Value Normal Range LVIDd 2D 3.5 [ 3.8 - 5.2 ] cm AV Peak Kevin 1.1 [ 100.0 - 170.0 ] cm/sec LVIDs 2D 2.5 [ 2.2 - 3.5 ] cm AV Peak PG 5.0 [ 2.0 - 9.0 ] mmHg LVPWd 2D 1.3 [ 0.6 - 0.9 ] cm LVOT Peak Kevin 0.6 [ 70.0 - 110.0 ] cm/sec IVSd 2D 1.3 [ 0.6 - 0.9 ] cm LVOT Peak PG 2.0 [ 2.0 - 6.0 ] mmHg AoR Diam 2D 2.9 [ 2.3 - 3.1 ] cm MV E Peak Kevin 0.7 [ 60.0 - 130.0 ] cm/sec EDV 2D 51.9 [ 46.0 - 106.0 ] ml MV A Peak Kevin 0.8 [ 100.0 - 120.0 ] cm/sec ESV 2D 23.0 [ 14.0 - 42.0 ] ml MV E/A 0.9 [ 0.8 - 1.5 ] ratio EF 2D 55.7 [ 54.0 - 74.0 ] percent MV Decel Time 120 [ 104 - 258 ] msec LA Dimen 2D 2.9 [ 2.7 - 3.8 ] cm Lat E` Kevin 0.1 [ 10.0 - 15.0 ] cm/sec Lateral E/E` 12.4 [ 1.0 - 2.0 ] ratio Med E` Kevin 0.1 cm/sec MV E/A 0.9 [ 0.8 - 1.5 ] ratio TR Peak Kevin 2.5 [ 100.0 - 280.0 ] cm/sec TR Peak PG 26.0 mmHg RVSP 29.0 [ 10.0 - 36.0 ] mmHg Findings: Left Ventricle: Normal left ventricular systolic function. Normal left ventricular cavity size. Mild concentric left ventricular hypertrophy. Ejection fraction is visually estimated at 55 %. Tissue Doppler/Mitral Doppler indices are consistent with impaired relaxation (Stage I diastolic dysfunction). Right Ventricle: Normal right ventricular size. Normal right ventricular systolic function. Linear artifact in right ventricle suggestive of catheter, pacer lead, or ICD lead. Left Atrium: The left atrium is normal in size. Right Atrium: The right atrium is normal in size. Mitral Valve: Mild mitral leaflet calcification. Mild mitral annular calcification. Trace mitral regurgitation. No evidence of endocarditis. Aortic Valve: No significant aortic stenosis or insufficiency. Aortic cusps appear mildly calcified. No evidence of endocarditis. Tricuspid Valve: Normal appearance of the tricuspid valve. Estimated peak PA systolic pressure 29 mmHg. There is mild tricuspid regurgitation. Pulmonic Valve: Pulmonic valve not well visualized. Pericardium: Normal pericardium with no significant pericardial effusion. Aorta: Normal aortic root. IVC: Normal size and normal respiratory collapse consistent with normal right atrial pressure. Conclusions: Normal left ventricular systolic function. Normal left ventricular cavity size. Mild concentric left ventricular hypertrophy. Ejection fraction is visually estimated at 55 %. Tissue Doppler/Mitral Doppler indices are consistent with impaired relaxation (Stage I diastolic dysfunction). Mild mitral leaflet calcification. Mild mitral annular calcification. Trace mitral regurgitation. No evidence of endocarditis. Normal appearance of the tricuspid valve. Estimated peak PA systolic pressure 29 mmHg. There is mild tricuspid regurgitation. No definite vegetation seen on any of the well visualized valvular apparati. Electronically Signed By: Barry Ybarra 2018-10-12 18:46:59 PST
[2018-10-12 19:22] VITALS: BP 104/53; PULSE 100; RESP 20
[2018-10-13] MEDS: AMPICILLIN 1 GM/NS (PMX) 50 ML IVPB SCH ×4 (00:15→17:42)
[2018-10-13 02:01] VITALS: BP 102/56; PULSE 98; RESP 20
--- NOTE | 2018-10-13 08:47 | PN ---
DATE: 10/13/2018 SUBJECTIVE: The patient had a Perm-A-Cath yesterday removed without any complication. No other even ts noted. OBJECTIVE: VITAL SIGNS: Blood pressure is 102/56, respirations 20, pulse 98, temperature 97.9. HEENT: Head is normocephalic. NECK: Supple. HEART: Regular rate. LUNGS: Show diminished breath sounds at the base. ABDOMEN: Soft, nontender to palpation without rebound or guarding. EXTREMITIES: Negative for clubbing, cyanosis, no edema. DERMATOLOGIC: No rashes. MUSCULOSKELETAL: No joint effusion. NEUROLOGIC: No change in exam. MEDICATIONS: Reviewed. LABORATORY DATA: From 10/13/2018 has been reviewed. ASSESSMENT AND PLAN: 1. End-stage renal disease. The patient has PermCath removed yesterday due to line infection. Will anticipate Mino catheter placement tomorrow. 2. Sepsis secondary to line infection. PermCath was removed. Continue current antibiotic regimen. 3. Anemia. Monitor hemoglobin and hematocrit levels. Will give Epogen as needed. 4. Mineral bone disorder. Monitor calcium and phosphorus levels. 5. Hypertension. Continue current blood pressure regimen. 6. Arrhythmia. Continue to monitor. 7. . 8. respiratory failure. 9. Obesity. Continue dietary modification. Dictated By: KAYLENE JOSUE/NTS Conf#: [id number] DID#: [id number] CC: LEW RODRÍGUEZ MD;*EndCC*
[2018-10-13] MEDS: FAMOTIDINE 20 MG TAB GTB SCH (09:00)
[2018-10-13] MEDS: POLYETHYLENE GLYCOL 17 GM PACKET GTB SCH (09:00)
[2018-10-13] MEDS: MULTIVIT/CA CARB/B CMPLX/FA TAB GTB SCH (09:00)
[2018-10-13] MEDS: ASPIRIN (EC) 81 MG TAB PO SCH (09:00)
[2018-10-13] MEDS: LISINOPRIL 10 MG TAB GTB SCH (09:00)
[2018-10-13] MEDS: METOPROLOL 50 MG TAB GTB SCH ×2 (09:00→21:00)
[2018-10-13 09:05] VITALS: BP 84/51; PULSE 91; RESP 18
--- NOTE | 2018-10-13 12:14 | PN ---
Date/Time of Note Date/Time of Note DATE: 10/13/18 TIME: 12:14 Assessment/Plan VTE Prophylaxis Risk score (from Ns)>0 risk: 4 SCD applied (from Ns): Yes Lines/Catheters IV Catheter Type (from Nrs): Saline Lock Urinary Cath still in place: No Assessment/Plan Assessment/Plan 1. 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 Continue IV ampicillin. Plan is to remove PermCath due to underlying line infection. Anticipate next hemodialysis in 1 to 2 days. 2. End-stage renal disease. Continue to monitor electrolytes. The patient is waiting for a line holiday. 3. Hypertension. The patient's blood pressure is on the low side of normal. We will decrease lisinopril to 10 mg from 30 mg. 4. Anoxic encephalopathy. The patient still remains confused, although follows simple commands. We will continue to monitor. 5. Anemia of chronic kidney disease. Continue Epogen 10,000 units. 6. Anxiety. Continue Ativan on p.r.n. basis. 7. Mild hypercalcemia. We will continue to monitor. The patient is being seen by Dr. Hamm. We will wait for his recommendation. The patient is also being seen by Dr. Garcia from infectious disease standpoint. Result Diagram: 10/13/188 10/13/188 Results 24hrs Laboratory Tests Test 10/13/18 04:48 White Blood Count 10.5 Red Blood Count 3.23 L Hemoglobin 9.0 L Hematocrit 30.0 L Mean Corpuscular Volume 92.9 Mean Corpuscular Hemoglobin 27.9 L Mean Corpuscular Hemoglobin Concent 30.0 L Red Cell Distribution Width 19.2 H Platelet Count 406 Mean Platelet Volume 9.6 Immature Granulocytes % 1.500 H Neutrophils % 55.4 Lymphocytes % 21.1 Monocytes % 3.9 Eosinophils % 17.7 H Basophils % 0.4 Nucleated Red Blood Cells % 0.0 Immature Granulocytes # 0.160 H Neutrophils # 5.8 Lymphocytes # 2.2 Monocytes # 0.4 Eosinophils # 1.9 H Basophils # 0.0 Nucleated Red Blood Cells # 0.0 Sodium Level 137 Potassium Level 3.8 Chloride Level 100 Carbon Dioxide Level 20 L Anion Gap 17 H Blood Urea Nitrogen 21 H Creatinine 7.41 H Est Glomerular Filtrat Rate mL/min 6 L Glucose Level 74 Calcium Level 10.9 H Phosphorus Level 6.1 H Magnesium Level 2.1 Exam/Review of Systems Exam Vitals Vital Signs Date Temp Pulse Resp B/P (MAP) Pulse Ox O2 O2 Flow FiO2 Time Delivery Rate 10/13/18 97.5 91 18 84/51 (62) 100 09:05 10/13/18 Room Air 02:01 Intake and Output 10/12/18 10/12/18 10/13/18 1414:59 22:59 06:59 IntakeIntake Total 240 ml 530 ml 100 ml OutputOutput Total 600 ml BalanceBalance 240 ml -70 ml 100 ml Results Results 24hrs Laboratory Tests Test 10/13/18 04:48 White Blood Count 10.5 Red Blood Count 3.23 L Hemoglobin 9.0 L Hematocrit 30.0 L Mean Corpuscular Volume 92.9 Mean Corpuscular Hemoglobin 27.9 L Mean Corpuscular Hemoglobin Concent 30.0 L Red Cell Distribution Width 19.2 H Platelet Count 406 Mean Platelet Volume 9.6 Immature Granulocytes % 1.500 H Neutrophils % 55.4 Lymphocytes % 21.1 Monocytes % 3.9 Eosinophils % 17.7 H Basophils % 0.4 Nucleated Red Blood Cells % 0.0 Immature Granulocytes # 0.160 H Neutrophils # 5.8 Lymphocytes # 2.2 Monocytes # 0.4 Eosinophils # 1.9 H Basophils # 0.0 Nucleated Red Blood Cells # 0.0 Sodium Level 137 Potassium Level 3.8 Chloride Level 100 Carbon Dioxide Level 20 L Anion Gap 17 H Blood Urea Nitrogen 21 H Creatinine 7.41 H Est Glomerular Filtrat Rate mL/min 6 L Glucose Level 74 Calcium Level 10.9 H Phosphorus Level 6.1 H Magnesium Level 2.1 Medications Medication Current Medications Acetaminophen (Tylenol Liquid) 650 mg Q6 PRN GTB MILD PAIN(1-3) OR TEMP>38C; Start 10/05/18 at 14:30 Aspirin (Halfprin) 81 mg DAILY PO Last administered on 10/13/18at 09:00; Admin Dose 81 MG; Start 10/06/18 at 09:00 Bisacodyl (Dulcolax Supp) 10 mg DAILY PRN [place] CONSTIPATION; Start 10/05/18 at 1 4:30 Famotidine (Pepcid) 20 mg DAILY GTB Last administered on 10/13/18at 09:00; Admin Dose 20 MG; Start 10/06/18 at 09:00 Hydroxyzine HCl (Atarax) 25 mg Q8H PRN GTB ITCHING; Start 10/05/18 at 14:30 Lorazepam (Ativan) 0.5 mg Q6H PRN GTB ANXIETY; Start 10/05/18 at 14:30 Magnesium Hydroxide (Milk Of Mag) 30 ml DAILY PRN GTB CONSTIPATION; Start 10/05/18 at 14:30 Metoprolol Tartrate (Lopressor) 50 mg BID GTB Last administered on 10/12/18 20:51; Admin Dose 50 MG; Start 10/05/18 at 21:00 Multivit/Ca Carb/ B Cmplx/FA/Prenat (Stephanie-Johnny) 1 tab DAILY GTB Last administered on 10/13/18 09:00; Admin Dose 1 TAB; Start 10/06/18 at 09:00 Polyethylene Glycol (Miralax) 17 gm DAILY GTB Last administered on 10/13/18 09:00; Admin Dose 17 GM; Start 10/06/18 at 09:00 IV Flush (NS 3 ml) 3 ml PER PROTOCOL IV ; Start 10/05/18 at 14:30 Ondansetron HCl (Zofran Inj) 4 mg Q6H PRN IV NAUSEA/VOMITING; Start 10/05/18 at 14:30 Morphine Sulfate (morphine) 2 mg Q4H PRN IV .PAIN 7-10; Start 10/05/18 at 14:30 Epoetin Justen (Epogen (Esrd)) 10,000 units TuThSa@17 SC Last administered on 10/11/18 17:09; Admin Dose 10,000 UNITS; Start 10/06/18 at 17:00 Heparin Sodium (Porcine) (Heparin (1000 Units/ml)) 4,500 unit PRN CATHETER Last administered on 10/11/18 14:13; Admin Dose 4,500 UNIT; Start 10/06/18 at 07:30 Ampicillin 50 ml @ 100 mls/hr Q6 IVPB Last administered on 10/13/18 11:44; Admin Dose 100 MLS/HR; Start 10/10/18 at 18:00 Lisinopril (Zestril) 10 mg DAILY GTB ; Start 10/13/18 at 09:00 FREDDY LING Oct 13, 2018 12:14
[2018-10-13 15:24] VITALS: BP 97/53; PULSE 94; RESP 17
--- NOTE | 2018-10-13 15:58 | CONS ---
Assessment/Plan Assessment/Plan Hospital Course (Demo Recall) Awake, looks comfortable, no fevers Microbiology: Blood culture on admission grew enterococcus species susceptible to ampicillin Antimicrobials: Ampicillin IV Indwelling: none Physical examination: Morbidly obese well-developed -English woman who is awake in no distress. Head atraumatic normocephalic. Neck is obese. Chest rise symmetrical. Right chest permacath present. Breath sounds clear, diminished bases. Heart: S1-S2. Abdomen obese, soft. Bowel sounds present. Extremities without cyanosis. Assessment: 1. Sepsis, present on admission 2. Enterococcal bacteremia likely secondary to infected permacath, rule out endocarditis 3. Morbid obesity 4. End-stage renal disease, hemodialysis dependent 5. Arrhythmia status post permanent pacemaker Plan: Stable, s/p HD cath removed 10/12/18, no vegetations per 2D ECHO, will repeat bld cx today Consultation Date/Type/Reason Admit Date/Time Oct 05, 2018 at 11:51 Initial Consult Date Type of Consult id Date/Time of Note DATE: 10/13/18 TIME: 15:57 Exam/Review of Systems Exam Vitals Vital Signs Date Temp Pulse Resp B/P (MAP) Pulse Ox O2 O2 Flow FiO2 Time Delivery Rate 10/13/18 98.2 94 17 97/53 (68) 96 15:24 10/13/18 Room Air 02:01 Intake and Output 10/12/18 10/12/18 10/13/18 1515:00 23:00 07:00 IntakeIntake Total 240 ml 530 ml 100 ml OutputOutput Total 600 ml BalanceBalance 240 ml -70 ml 100 ml Results Result Diagram: 10/13/18 0448 10/13/18 0448 Results 24hrs Laboratory Tests Test 10/13/18 04:48 White Blood Count 10.5 Red Blood Count 3.23 L Hemoglobin 9.0 L Hematocrit 30.0 L Mean Corpuscular Volume 92.9 Mean Corpuscular Hemoglobin 27.9 L Mean Corpuscular Hemoglobin Concent 30.0 L Red Cell Distribution Width 19.2 H Platelet Count 406 Mean Platelet Volume 9.6 Immature Granulocytes % 1.500 H Neutrophils % 55.4 Lymphocytes % 21.1 Monocytes % 3.9 Eosinophils % 17.7 H Basophils % 0.4 Nucleated Red Blood Cells % 0.0 Immature Granulocytes # 0.160 H Neutrophils # 5.8 Lymphocytes # 2.2 Monocytes # 0.4 Eosinophils # 1.9 H Basophils # 0.0 Nucleated Red Blood Cells # 0.0 Sodium Level 137 Potassium Level 3.8 Chloride Level 100 Carbon Dioxide Level 20 L Anion Gap 17 H Blood Urea Nitrogen 21 H Creatinine 7.41 H Est Glomerular Filtrat Rate mL/min 6 L Glucose Level 74 Calcium Level 10.9 H Phosphorus Level 6.1 H Magnesium Level 2.1 Medications Medication Current Medications Acetaminophen (Tylenol Liquid) 650 mg Q6 PRN GTB MILD PAIN(1-3) OR TEMP>38C; Start 10/05/18 at 14:30 Aspirin (Halfprin) 81 mg DAILY PO Last administered on 10/13/18 09:00; Admin D ose 81 MG; Start 10/06/18 at 09:00 Bisacodyl (Dulcolax Supp) 10 mg DAILY PRN [place] CONSTIPATION; Start 10/05/18 at 14:30 Famotidine (Pepcid) 20 mg DAILY GTB Last administered on 10/13/18 09:00; Admin Dose 20 MG; Start 10/06/18 at 09:00 Hydroxyzine HCl (Atarax) 25 mg Q8H PRN GTB ITCHING; Start 10/05/18 at 14:30 Lorazepam (Ativan) 0.5 mg Q6H PRN GTB ANXIETY; Start 10/05/18 at 14:30 Magnesium Hydroxide (Milk Of Mag) 30 ml DAILY PRN GTB CONSTIPATION; Start 10/05/18 at 14:30 Metoprolol Tartrate (Lopressor) 50 mg BID GTB Last administered on 10/12/18at 20:51; Admin Dose 50 MG; Start 10/05/18 at 21:00 Multivit/Ca Carb/ B Cmplx/FA/Prenat (Stephanie-Johnny) 1 tab DAILY GTB Last administered on 10/13/18 09:00; Admin Dose 1 TAB; Start 10/06/18 at 09:00 Polyethylene Glycol (Miralax) 17 gm DAILY GTB Last administered on 10/13/18 09:00; Admin Dose 17 GM; Start 10/06/18 at 09:00 IV Flush (NS 3 ml) 3 ml PER PROTOCOL IV ; Start 10/05/18 at 14:30 Ondansetron HCl (Zofran Inj) 4 mg Q6H PRN IV NAUSEA/VOMITING; Start 10/05/18 at 14:30 Morphine Sulfate (morphine) 2 mg Q4H PRN IV .PAIN 7-10; Start 10/05/18 at 14:30 Epoetin Justen (Epogen (Esrd)) 10,000 units TuThSa@17 SC Last administered on 10/11/18at 17:09; Admin Dose 10,000 UNITS; Start 10/06/18 at 17:00 Heparin Sodium (Porcine) (Heparin (1000 Units/ml)) 4,500 unit PRN CATHETER Last administered on 10/11/18at 14:13; Admin Dose 4,500 UNIT; Start 10/06/18 at 07:30 Ampicillin 50 ml @ 100 mls/hr Q6 IVPB Last administered on 10/13/18at 11:44; Admin Dose 100 MLS/HR; Start 10/10/18 at 18:00 Lisinopril (Zestril) 10 mg DAILY GTB ; Start 10/13/18 at 09:00 BEST ALANIS NP Oct 13, 2018 15:58
[2018-10-13] MEDS: EPOETIN 10000 UNITS/1 ML INJ (ESRD) SC SCH (17:42)
[2018-10-13 19:49] VITALS: BP 95/56; PULSE 93; RESP 18
[2018-10-14] VITALS (21 sets, daily range): BP systolic 89–152; BP diastolic 47–105; PULSE 78–121; RESP 17–21
[2018-10-14] MEDS: AMPICILLIN 1 GM/NS (PMX) 50 ML IVPB SCH ×4 (00:11→17:35)
[2018-10-14] MEDS: MULTIVIT/CA CARB/B CMPLX/FA TAB GTB SCH (09:00)
[2018-10-14] MEDS: FAMOTIDINE 20 MG TAB GTB SCH (09:00)
[2018-10-14] MEDS: ASPIRIN (EC) 81 MG TAB PO SCH (09:00)
[2018-10-14] MEDS: LISINOPRIL 10 MG TAB GTB SCH (09:00)
[2018-10-14] MEDS: METOPROLOL 50 MG TAB GTB SCH ×2 (09:00→21:00)
[2018-10-14] MEDS: POLYETHYLENE GLYCOL 17 GM PACKET GTB SCH (09:00)
--- NOTE | 2018-10-14 09:17 | PN ---
DATE: 10/14/2018 SUBJECTIVE: The patient is stable, no events overnight. No fevers, chills, nausea, or vomiting. OBJECTIVE: VITAL SIGNS: Blood pressure is 113/57, pulse 97, respirations 17, temperature 98.1. HEENT: Head is normocephalic. NECK: Supple. HEART: Regular rate. LUNGS: Show diminished breath sounds at the base. ABDOMEN: Soft, nontender to palpation. No rebound or guarding. EXTREMITIES: Negative for clubbing, cyanosis, no edema. DERMATOLOGIC: No rashes. MUSCULOSKELETAL: No joint effusion. NEUROLOGIC: No change in exam. MEDICATIONS: Reviewed. LABORATORY DATA: For 10/14/2018 is pending. ASSESSMENT AND PLAN: 1. End-stage renal disease. The patient's Perm-A-Cath was removed. The patient is pending Mino catheter placement today. Once placed, we will resume hemodialysis. 2. Sepsis secondary to line infection. The patient's Perm-A-Cath was removed. A Mino catheter i s pending. We will continue current antibiotic regimen. The patient will likely need a new Perm-A-C ath placement in the next few days once repeat blood cultures are negative. 3. Anemia. Continue to monitor hemoglobin and hematocrit levels. Continue Epogen. 4. Mineral bone disorder. Monitor calcium and phosphorus levels. 5. Hypertension. Continue current blood pressure regimen. 6. Obesity. Continue dietary modification. 7. Encephalopathy. Continue to monitor. 8. Arrhythmia. Continue current treatment plan. The patient is status post pacemaker. Dictated By: KAYLENE JOSUE/GEOVANI Conf#: [id number] DID#: [id number] CC: LEW RODRÍGUEZ MD;*EndCC*
[2018-10-14] MEDS ORDERED: SOD CHLORIDE 0.9% 100 ML ONE (11:54)
[2018-10-14] MEDS ORDERED: HEPARIN 1000 UNITS/ML 10 ML INJ ONE (11:54)
--- NOTE | 2018-10-14 12:46 | HPN ---
Date/Time of Note Date/Time of Note DATE: 10/14/18 TIME: 12:46 Interval H&P Admission Note Pt. seen H&P reviewed: No system changes JAVIER AGUIRRE MD Oct 14, 2018 12:46
--- NOTE | 2018-10-14 19:39 | CONS ---
Assessment/Plan Assessment/Plan Hospital Course (Demo Recall) 1200 No acute events Microbiology: Blood culture on admission grew enterococcus species susceptible to ampicillin Antimicrobials: Ampicillin IV Physical examination: Morbidly obese well-developed -[place] woman who is awake in no distress. Head atraumatic normocephalic. Neck is obese. Chest rise symmetrical. Right chest permacath present. Breath sounds clear, diminished bases. Heart: S1-S2. Abdomen obese, soft. Bowel sounds present. Extremities without cyanosis. Assessment: 1. S/p sepsis, present on admission 2. Enterococcal bacteremia, s/p permacath removed 10/12/18 3. Morbid obesity 4. End-stage renal disease, hemodialysis dependent 5. Arrhythmia status post permanent pacemaker Plan: Stable, repeat bld cx neg, no vegetations per 2D ECHO, ok for new HD cath Consultation Date/Type/Reason Admit Date/Time Oct 05, 2018 at 11:51 Initial Consult Date Type of Consult id Date/Time of Note DATE: 10/14/18 TIME: 19:38 Exam/Review of Systems Exam Vitals Vital Signs Date Temp Pulse Resp B/P (MAP) Pulse Ox O2 O2 Flow FiO2 Time Delivery Rate 10/14/18 97.8 84 20 103/53 100 13:13 (70) 10/14/18 Room Air 12:45 Intake and Output 10/13/18 10/13/18 10/14/18 1414:59 22:59 06:59 IntakeIntake Total 1490 ml 1010 ml 100 ml BalanceBalance 1490 ml 1010 ml 100 ml Results Result Diagram: 10/14/18 0904 10/14/18 0904 Results 24hrs Laboratory Tests Test 10/14/18 09:04 White Blood Count 8.8 Red Blood Count 3.17 L Hemoglobin 8.9 L Hematocrit 29.5 L Mean Corpuscular Volume 93.1 Mean Corpuscular Hemoglobin 28.1 L Mean Corpuscular Hemoglobin Concent 30.2 L Red Cell Distribution Width 19.1 H Platelet Count 368 Mean Platelet Volume 9.3 Immature Granulocytes % 0.800 H Neutrophils % 61.6 Lymphocytes % 17.1 Monocytes % 4.6 Eosinophils % 15.4 H Basophils % 0.5 Nucleated Red Blood Cells % 0.0 Immature Granulocytes # 0.070 H Neutrophils # 5.4 Lymphocytes # 1.5 Monocytes # 0.4 Eosinophils # 1.4 H Basophils # 0.0 Nucleated Red Blood Cells # 0.0 Sodium Level 136 Potassium Level 4.0 Chloride Level 101 Carbon Dioxide Level 19 L Anion Gap 16 H Blood Urea Nitrogen 26 H Creatinine 9.03 H Est Glomerular Filtrat Rate mL/min 4 L Glucose Level 84 Calcium Level 10.8 H Phosphorus Level 8.0 H Magnesium Level 2.1 Medications Medication Current Medications Acetaminophen (Tylenol Liquid) 650 mg Q6 PRN GTB MILD PAIN(1-3) OR TEMP>38C; Start 10/05/18 at 14:30 Aspirin (Halfprin) 81 mg DAILY PO Last administered on 10/13/18at 09:00; Admin Dose 81 MG; Start 10/06/18 at 09:00 Bisacodyl (Dulcolax Supp) 10 mg DAILY PRN [place] CONSTIPATION; Start 10/05/18 at 14:30 Famotidine (Pepcid) 20 mg DAILY GTB Last administered on 10/13/18at 09:00; Admin Dose 20 MG; Start 10/06/18 at 09:00 Hydroxyzine HCl (Atarax) 25 mg Q8H PRN GTB ITCHING; Start 10/05/18 at 14:30 Lorazepam (Ativan) 0.5 mg Q6H PRN GTB ANXIETY; Start 10/05/18 at 14:30 Magnesium Hydroxide (Milk Of Mag) 30 ml DAILY PRN GTB CONSTIPATION; Start 10/05/18 at 14:30 Metoprolol Tartrate (Lopressor) 50 mg BID GTB Last administered on 10/12/18at 20:51; Admin Dose 50 MG; Start 10/05/18 at 21:00 Multivit/Ca Carb/ B Cmplx/FA/Prenat (Stephanie-Johnny) 1 tab DAILY GTB Last administered on 10/13/18at 09:00; Admin Dose 1 TAB; Start 10/06/18 at 09:00 Polyethylene Glycol (Miralax) 17 gm DAILY GTB Last administered on 10/13/18at 09:00; Admin Dose 17 GM; Start 10/06/18 at 09:00 IV Flush (NS 3 ml) 3 ml PER PROTOCOL IV ; Start 10/05/18 at 14:30 Ondansetron HCl (Zofran Inj) 4 mg Q6H PRN IV NAUSEA/VOMITING; Start 10/05/18 at 14:30 Morphine Sulfate (morphine) 2 mg Q4H PRN IV .PAIN 7-10; Start 10/05/18 at 14:30 Epoetin Justen (Epogen (Esrd)) 10,000 units TuThSa@17 SC Last administered on 10/13/18at 17:42; Admin Dose 10,000 UNITS; Start 10/06/18 at 17:00 Heparin Sodium (Porcine) (Heparin (1000 Units/ml)) 4,500 unit PRN CATHETER Last administered on 10/11/18at 14:13; Admin Dose 4,500 UNIT; Start 10/06/18 at 07:30 Ampicillin 50 ml @ 100 mls/hr Q6 IVPB Last administered on 10/14/18at 17:35; Admin Dose 100 MLS/HR; Start 10/10/18 at 18:00 Lisinopril (Zestril) 10 mg DAILY GTB ; Start 10/13/18 at 09:00 BEST ALANIS NP Oct 14, 2018 19:39
--- NOTE | 2018-10-14 23:18 | PN ---
Date/Time of Note Date/Time of Note DATE: 10/14/18 TIME: 23:18 Assessment/Plan VTE Prophylaxis Risk score (from Ns)>0 risk: 5 SCD applied (from Ns): Yes Lines/Catheters IV Catheter Type (from Nrs): JAMA CATH Urinary Cath still in place: No Assessment/Plan Assessment/Plan 1. 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 Continue IV ampicillin. Plan is to remove PermCath due to underlying line infection. Anticipate next hemodialysis in 1 to 2 days. 2. End-stage renal disease. Continue to monitor electrolytes. The patient is waiting for a line holiday. 3. Hypertension. The patient's blood pressure is on the low side of normal. We will decrease lisinopril to 10 mg from 30 mg. 4. Anoxic encephalopathy. The patient still remains confused, although follows simple commands. We will continue to monitor. 5. Anemia of chronic kidney disease. Continue Epogen 10,000 units. 6. Anxiety. Continue Ativan on p.r.n. basis. 7. Mild hypercalcemia. We will continue to monitor. The patient is being seen by Dr. Hamm. We will wait for his recommendation. The patient is also being seen by Dr. Garcia from infectious disease standpoint. Result Diagram: 10/14/18 0904 10/14/18 0904 Results 24hrs Laboratory Tests Test 10/14/18 09:04 10/14/18 22:40 White Blood Count 8.8 Red Blood Count 3.17 L Hemoglobin 8.9 L Hematocrit 29.5 L Mean Corpuscular Volume 93.1 Mean Corpuscular Hemoglobin 28.1 L Mean Corpuscular Hemoglobin Concent 30.2 L Red Cell Distribution Width 19.1 H Platelet Count 368 Mean Platelet Volume 9.3 Immature Granulocytes % 0.800 H Neutrophils % 61.6 Lymphocytes % 17.1 Monocytes % 4.6 Eosinophils % 15.4 H Basophils % 0.5 Nucleated Red Blood Cells % 0.0 Immature Granulocytes # 0.070 H Neutrophils # 5.4 Lymphocytes # 1.5 Monocytes # 0.4 Eosinophils # 1.4 H Basophils # 0.0 Nucleated Red Blood Cells # 0.0 Sodium Level 136 Potassium Level 4.0 Chloride Level 101 Carbon Dioxide Level 19 L Anion Gap 16 H Blood Urea Nitrogen 26 H Creatinine 9.03 H Est Glomerular Filtrat Rate mL/min 4 L Glucose Level 84 Calcium Level 10.8 H Phosphorus Level 8.0 H Magnesium Level 2.1 Bedside Glucose 95 Exam/Review of Systems Exam Vitals Vital Signs Date Temp Pulse Resp B/P (MAP) Pulse Ox O2 O2 Flow FiO2 Time Delivery Rate 10/14/18 102 22:00 10/14/18 20 125/63 99 Room Air 20:30 (83) 10/14/18 98.5 20:21 Intake and Output 10/13/18 10/13/18 10/14/18 1515:00 23:00 07:00 IntakeIntake Total 1490 ml 1010 ml 100 ml BalanceBalance 1490 ml 1010 ml 100 ml Results Results 24hrs Laboratory Tests Test 10/14/18 09:04 10/14/18 22:40 White Blood Count 8.8 Red Blood Count 3.17 L Hemoglobin 8.9 L Hematocrit 29.5 L Mean Corpuscular Volume 93.1 Mean Corpuscular Hemoglobin 28.1 L Mean Corpuscular Hemoglobin Concent 30.2 L Red Cell Distribution Width 19.1 H Platelet Count 368 Mean Platelet Volume 9.3 Immature Granulocytes % 0.800 H Neutrophils % 61.6 Lymphocytes % 17.1 Monocytes % 4.6 Eosinophils % 15.4 H Basophils % 0.5 Nucleated Red Blood Cells % 0.0 Immature Granulocytes # 0.070 H Neutrophils # 5.4 Lymphocytes # 1.5 Monocytes # 0.4 Eosinophils # 1.4 H Basophils # 0.0 Nucleated Red Blood Cells # 0.0 Sodium Level 136 Potassium Level 4.0 Chloride Level 101 Carbon Dioxide Level 19 L Anion Gap 16 H Blood Urea Nitrogen 26 H Creatinine 9.03 H Est Glomerular Filtrat Rate mL/min 4 L Glucose Level 84 Calcium Level 10.8 H Phosphorus Level 8.0 H Magnesium Level 2.1 Bedside Glucose 95 Medications Medication Current Medications Acetaminophen (Tylenol Liquid) 650 mg Q6 PRN GTB MILD PAIN(1-3) OR TEMP>38C; Start 10/05/18 at 14:30 Aspirin (Halfprin) 81 mg DAILY PO Last administered on 10/13/18at 09:00; Admin Dose 81 MG; Start 10/06/18 at 09:00 Bisacodyl (Dulcolax Supp) 10 mg DAILY PRN [place] CONSTIPATION; Start 10/05/18 at 14:30 Famotidine (Pepcid) 20 mg DAILY GTB Last administered on 10/13/18 09:00; Admin Dose 20 MG; Start 10/06/18 at 09:00 Hydroxyzine HCl (Atarax) 25 mg Q8H PRN GTB ITCHING; Start 10/05/18 at 14:30 Lorazepam (Ativan) 0.5 mg Q6H PRN GTB ANXIETY; Start 10/05/18 at 14:30 Magnesium Hydroxide (Milk Of Mag) 30 ml DAILY PRN GTB CONSTIPATION; Start 10/05/18 at 14:30 Metoprolol Tartrate (Lopressor) 50 mg BID GTB Last administered on 10/12/18 20:51; Admin Dose 50 MG; Start 10/05/18 at 21:00 Multivit/Ca Carb/ B Cmplx/FA/Prenat (Stephanie-Johnny) 1 tab DAILY GTB Last administered on 10/13/18 09:00; Admin Dose 1 TAB; Start 10/06/18 at 09:00 Polyethylene Glycol (Miralax) 17 gm DAILY GTB Last administered on 10/13/18 09:00; Admin Dose 17 GM; Start 10/06/18 at 09:00 IV Flush (NS 3 ml) 3 ml PER PROTOCOL IV ; Start 10/05/18 at 14:30 Ondansetron HCl (Zofran Inj) 4 mg Q6H PRN IV NAUSEA/VOMITING; Start 10/05/18 at 14:30 Morphine Sulfate (morphine) 2 mg Q4H PRN IV .PAIN 7-10; Start 10/05/18 at 14:30 Epoetin Justen (Epogen (Esrd)) 10,000 units TuThSa@17 SC Last administered on 10/13/18 17:42; Admin Dose 10,000 UNITS; Start 10/06/18 at 17:00 Heparin Sodium (Porcine) (Heparin (1000 Units/ml)) 4,500 unit PRN CATHETER Last administered on 10/11/18 14:13; Admin Dose 4,500 UNIT; Start 10/06/18 at 07:30 Ampicillin 50 ml @ 100 mls/hr Q6 IVPB Last administered on 10/14/18 17:35; Admin Dose 100 MLS/HR; Start 10/10/18 at 18:00 Lisinopril (Zestril) 10 mg DAILY GTB ; Start 10/13/18 at 09:00 FREDDY LING Oct 14, 2018 23:18
[2018-10-14] MEDS: HEPARIN 1000 UNITS/ML 10 ML INJ CATHETER SCH (23:25)
[2018-10-14] MEDS: LEVETIRACETAM 500 MG TAB PO SCH (23:56)
[2018-10-15] VITALS (13 sets, daily range): BP systolic 90–101; BP diastolic 36–59; PULSE 62–89; RESP 16–20
[2018-10-15] MEDS: AMPICILLIN 1 GM/NS (PMX) 50 ML IVPB SCH ×4 (00:16→22:10)
[2018-10-15] MEDS: FAMOTIDINE 20 MG TAB GTB SCH (08:26)
[2018-10-15] MEDS: POLYETHYLENE GLYCOL 17 GM PACKET GTB SCH (08:26)
[2018-10-15] MEDS: MULTIVIT/CA CARB/B CMPLX/FA TAB GTB SCH (08:26)
[2018-10-15] MEDS: LEVETIRACETAM 500 MG TAB PO SCH ×2 (08:26→22:18)
[2018-10-15] MEDS: ASPIRIN (EC) 81 MG TAB PO SCH (08:26)
[2018-10-15] MEDS: METOPROLOL 50 MG TAB GTB SCH ×2 (08:27→21:00)
[2018-10-15] MEDS: LISINOPRIL 10 MG TAB GTB SCH (08:27)
--- NOTE | 2018-10-15 08:36 | PN ---
Date/Time of Note Date/Time of Note DATE: 10/15/18 TIME: 08:35 Assessment/Plan VTE Prophylaxis Risk score (from Ns)>0 risk: 5 SCD applied (from Nsg): Yes Pharmacological prophylaxis: other Lines/Catheters IV Catheter Type (from Nrs): Saline Lock Urinary Cath still in place: No Assessment/Plan Hospital Course SUBJECTIVE: The patient is stable, no events overnight. No fevers, chills, nausea, or vomiting. OBJECTIVE: VITAL SIGNS: Blood pressure is 113/57, pulse 97, respirations 17, temperature 98.1. HEENT: Head is normocephalic. NECK: Supple. HEART: Regular rate. LUNGS: Show diminished breath sounds at the base. ABDOMEN: Soft, nontender to palpation. No rebound or guarding. EXTREMITIES: Negative for clubbing, cyanosis, no edema. DERMATOLOGIC: No rashes. MUSCULOSKELETAL: No joint effusion. NEUROLOGIC: No change in exam. MEDICATIONS: Reviewed. LABORATORY DATA: reviewed ASSESSMENT AND PLAN: 1. End-stage renal disease. The patient's Perm-A-Cath was removed. The patient had a new temp line placed. will be dialyzed in am to correct hypercalcemia and hypervolemia 2. Sepsis secondary to line infection. The patient's Perm-A-Cath was removed. A Mino catheter is now in place. We will continue current antibiotic regimen. The patient will likely need a new Perm-A-Cath placement in the next few days once repeat blood cultures are negative. 3. Anemia. Continue to monitor hemoglobin and hematocrit levels. Continue Epogen. 4. Mineral bone disorder. will add renvela. will adjust dialysate to correct hypercalcemia (due to immobility) 5. Hypertension. Continue current blood pressure regimen. 6. Obesity. Continue dietary modification. 7. Encephalopathy. Continue to monitor. 8. Arrhythmia. Continue current treatment plan. The patient is status post pacemaker. Result Diagram: 10/14/1890310/14/18 0904 Results 24hrs Laboratory Tests Test 10/14/18 09:04 10/14/18 22:40 White Blood Count 8.8 Red Blood Count 3.17 L Hemoglobin 8.9 L Hematocrit 29.5 L Mean Corpuscular Volume 93.1 Mean Corpuscular Hemoglobin 28.1 L Mean Corpuscular Hemoglobin Concent 30.2 L Red Cell Distribution Width 19.1 H Platelet Count 368 Mean Platelet Volume 9.3 Immature Granulocytes % 0.800 H Neutrophils % 61.6 Lymphocytes % 17.1 Monocytes % 4.6 Eosinophils % 15.4 H Basophils % 0.5 Nucleated Red Blood Cells % 0.0 Immature Granulocytes # 0.070 H Neutrophils # 5.4 Lymphocytes # 1.5 Monocytes # 0.4 Eosinophils # 1.4 H Basophils # 0.0 Nucleated Red Blood Cells # 0.0 Sodium Level 136 Potassium Level 4.0 Chloride Level 101 Carbon Dioxide Level 19 L Anion Gap 16 H Blood Urea Nitrogen 26 H Creatinine 9.03 H Est Glomerular Filtrat Rate mL/min 4 L Glucose Level 84 Calcium Level 10.8 H Phosphorus Level 8.0 H Magnesium Level 2.1 Bedside Glucose 95 Exam/Review of Systems Exam Vitals Vital Signs Date Temp Pulse Resp B/P (MAP) Pulse Ox O2 O2 Flow FiO2 Time Delivery Rate 10/15/18 98.0 82 18 90/52 (65) 96 Room Air 07:43 Intake and Output 10/14/18 10/14/18 10/15/18 1515:00 23:00 07:00 IntakeIntake Total 240 ml 150 ml OutputOutput Total 1900 ml BalanceBalance 240 ml -1750 ml Results Results 24hrs Laboratory Tests Test 10/14/18 09:04 10/14/18 22:40 White Blood Count 8.8 Red Blood Count 3.17 L Hemoglobin 8.9 L Hematocrit 29.5 L Mean Corpuscular Volume 93.1 Mean Corpuscular Hemoglobin 28.1 L Mean Corpuscular Hemoglobin Concent 30.2 L Red Cell Distribution Width 19.1 H Platelet Count 368 Mean Platelet Volume 9.3 Immature Granulocytes % 0.800 H Neutrophils % 61.6 Lymphocytes % 17.1 Monocytes % 4.6 Eosinophils % 15.4 H Basophils % 0.5 Nucleated Red Blood Cells % 0.0 Immature Granulocytes # 0.070 H Neutrophils # 5.4 Lymphocytes # 1.5 Monocytes # 0.4 Eosinophils # 1.4 H Basophils # 0.0 Nucleated Red Blood Cells # 0.0 Sodium Level 136 Potassium Level 4.0 Chloride Level 101 Carbon Dioxide Level 19 L Anion Gap 16 H Blood Urea Nitrogen 26 H Creatinine 9.03 H Est Glomerular Filtrat Rate mL/min 4 L Glucose Level 84 Calcium Level 10.8 H Phosphorus Level 8.0 H Magnesium Level 2.1 Bedside Glucose 95 Medications Medication Current Medications Acetaminophen (Tylenol Liquid) 650 mg Q6 PRN GTB MILD PAIN(1-3) OR TEMP>38C; Start 10/05/18 at 14:30 Aspirin (Halfprin) 81 mg DAILY PO Last administered on 10/15/18 08:26; Admin Dose 81 MG; Start 10/06/18 at 09:00 Bisacodyl (Dulcolax Supp) 10 mg DAILY PRN [place] CONSTIPATION; Start 10/05/18 at 14:30 Famotidine (Pepcid) 20 mg DAILY GTB Last administered on 10/15/18 08:26; Admin Dose 20 MG; Start 10/06/18 at 09:00 Hydroxyzine HCl (Atarax) 25 mg Q8H PRN GTB ITCHING; Start 10/05/18 at 14:30 Lorazepam (Ativan) 0.5 mg Q6H PRN GTB ANXIETY; Start 10/05/18 at 14:30 Magnesium Hydroxide (Milk Of Mag) 30 ml DAILY PRN GTB CONSTIPATION; Start 10/05/18 at 14:30 Metoprolol Tartrate (Lopressor) 50 mg BID GTB Last administered on 10/14/18 21:00; Admin Dose 50 MG; Start 10/05/18 at 21:00 Multivit/Ca Carb/ B Cmplx/FA/Prenat (Stephanie-Johnny) 1 tab DAILY GTB Last administered on 10/15/18 08:26; Admin Dose 1 TAB; Start 10/06/18 at 09:00 Polyethylene Glycol (Miralax) 17 gm DAILY GTB Last administered on 10/15/18 08:26; Admin Dose 17 GM; Start 10/06/18 at 09:00 IV Flush (NS 3 ml) 3 ml PER PROTOCOL IV ; Start 10/05/18 at 14:30 Ondansetron HCl (Zofran Inj) 4 mg Q6H PRN IV NAUSEA/VOMITING; Start 10/05/18 at 14:30 Morphine Sulfate (morphine) 2 mg Q4H PRN IV .PAIN 7-10; Start 10/05/18 at 14:30 Epoetin Justen (Epogen (Esrd)) 10,000 units TuThSa@17 SC Last administered on 10/13/18 17:42; Admin Dose 10,000 UNITS; Start 10/06/18 at 17:00 Heparin Sodium (Porcine) (Heparin (1000 Units/ml)) 4,500 unit PRN CATHETER Last administered on 10/14/18at 23:25; Admin Dose 4,500 UNIT; Start 10/06/18 at 07:30 Ampicillin 50 ml @ 100 mls/hr Q6 IVPB Last administered on 10/15/18at 06:05; Admin Dose 100 MLS/HR; Start 10/10/18 at 18:00 Lisinopril (Zestril) 10 mg DAILY GTB ; Start 10/13/18 at 09:00 Levetiracetam (Keppra) 500 mg BID PO Last administered on 10/15/18at 08:26; Admin Dose 500 MG; Start 10/14/18 at 23:30 BIJAL RIBEIRO DO Oct 15, 2018 08:36
--- NOTE | 2018-10-15 11:10 | PN ---
Date/Time of Note Date/Time of Note DATE: 10/15/18 TIME: 11:09 Assessment/Plan VTE Prophylaxis Risk score (from Nsg)>0 risk: 5 SCD applied (from Nsg): Yes Lines/Catheters IV Catheter Type (from Nrsg): Mino Cath Urinary Cath still in place: No Assessment/Plan Assessment/Plan 1. 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 Continue IV ampicillin. Plan is to remove PermCath due to underlying line infection. Anticipate next hemodialysis in 1 to 2 days. 2. End-stage renal disease. Continue to monitor electrolytes. The patient is waiting for a line holiday. 3. Hypertension. The patient's blood pressure is on the low side of normal. We will decrease lisinopril to 10 mg from 30 mg. 4. Anoxic encephalopathy. The patient still remains confused, although follows simple commands. We will continue to monitor. 5. Anemia of chronic kidney disease. Continue Epogen 10,000 units. 6. Anxiety. Continue Ativan on p.r.n. basis. 7. Mild hypercalcemia. We will continue to monitor. The patient is being seen by Dr. Hamm. We will wait for his recommendation. The patient is also being seen by Dr. Garcia from infectious disease standpoint. Result Diagram: 10/14/1890310/14/18903 Results 24hrs Laboratory Tests Test 10/14/18 22:40 Bedside Glucose 95 Exam/Review of Systems Exam Vitals Vital Signs Date Temp Pulse Resp B/P (MAP) Pulse Ox O2 O2 Flow FiO2 Time Delivery Rate 10/15/18 77 08:00 10/15/18 98.0 18 90/52 (65) 96 Room Air 07:43 Intake and Output 10/14/18 10/14/18 10/15/18 1515:00 23:00 07:00 IntakeIntake Total 240 ml 150 ml OutputOutput Total 1900 ml BalanceBalance 240 ml -1750 ml Results Results 24hrs Laboratory Tests Test 10/14/18 22:40 Bedside Glucose 95 Medications Medication Current Medications Acetaminophen (Tylenol Liquid) 650 mg Q6 PRN GTB MILD PAIN(1-3) OR TEMP>38C; Start 10/05/18 at 14:30 Aspirin (Halfprin) 81 mg DAILY PO Last administered on 10/15/18at 08:26; Admin Dose 81 MG; Start 10/06/18 at 09:00 Bisacodyl (Dulcolax Supp) 10 mg DAILY PRN [place] CONSTIPATION; Start 10/05/18 at 1 4:30 Famotidine (Pepcid) 20 mg DAILY GTB Last administered on 10/15/18 08:26; Admin Dose 20 MG; Start 10/06/18 at 09:00 Hydroxyzine HCl (Atarax) 25 mg Q8H PRN GTB ITCHING; Start 10/05/18 at 14:30 Lorazepam (Ativan) 0.5 mg Q6H PRN GTB ANXIETY; Start 10/05/18 at 14:30 Magnesium Hydroxide (Milk Of Mag) 30 ml DAILY PRN GTB CONSTIPATION; Start 10/05/18 at 14:30 Metoprolol Tartrate (Lopressor) 50 mg BID GTB Last administered on 10/14/18 21:00; Admin Dose 50 MG; Start 10/05/18 at 21:00 Multivit/Ca Carb/ B Cmplx/FA/Prenat (Stephanie-Johnny) 1 tab DAILY GTB Last administered on 10/15/18 08:26; Admin Dose 1 TAB; Start 10/06/18 at 09:00 Polyethylene Glycol (Miralax) 17 gm DAILY GTB Last administered on 10/15/18 08:26; Admin Dose 17 GM; Start 10/06/18 at 09:00 IV Flush (NS 3 ml) 3 ml PER PROTOCOL IV ; Start 10/05/18 at 14:30 Ondansetron HCl (Zofran Inj) 4 mg Q6H PRN IV NAUSEA/VOMITING; Start 10/05/18 at 14:30 Morphine Sulfate (morphine) 2 mg Q4H PRN IV .PAIN 7-10; Start 10/05/18 at 14:30 Epoetin Justen (Epogen (Esrd)) 10,000 units TuThSa@17 SC Last administered on 10/13/18at 17:42; Admin Dose 10,000 UNITS; Start 10/06/18 at 17:00 Heparin Sodium (Porcine) (Heparin (1000 Units/ml)) 4,500 unit PRN CATHETER Last administered on 10/14/18 23:25; Admin Dose 4,500 UNIT; Start 10/06/18 at 07:30 Ampicillin 50 ml @ 100 mls/hr Q6 IVPB Last administered on 10/15/18at 06:05; Admin Dose 100 MLS/HR; Start 10/10/18 at 18:00 Lisinopril (Zestril) 10 mg DAILY GTB ; Start 10/13/18 at 09:00 Levetiracetam (Keppra) 500 mg BID PO Last administered on 10/15/18at 08:26; Admin Dose 500 MG; Start 10/14/18 at 23:30 Sevelamer Carbonate (Renvela) 1.6 gm WITH MEALS NGT ; Start 10/15/18 at 11:50 RADHA VILLATORO MD Oct 15, 2018 11:10
--- NOTE | 2018-10-15 11:16 | PN ---
Date/Time of Note Date/Time of Note DATE: 10/15/18 TIME: 11:15 Assessment/Plan VTE Prophylaxis Risk score (from Nsg)>0 risk: 6 SCD applied (from Nsg): Yes Lines/Catheters IV Catheter Type (from Nrsg): Mino Cath Central line still needed: Yes Urinary Cath still in place: No Assessment/Plan Assessment/Plan 1. 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 Continue IV ampicillin. Plan is to remove PermCath due to underlying line infection. Anticipate next hemodialysis in 1 to 2 days. 2. End-stage renal disease. Continue to monitor electrolytes. The patient is waiting for a line holiday. 3. Hypertension. The patient's blood pressure is on the low side of normal. We will decrease lisinopril to 10 mg from 30 mg. 4. Anoxic encephalopathy. The patient still remains confused, although follows simple commands. We will continue to monitor. 5. Anemia of chronic kidney disease. Continue Epogen 10,000 units. 6. Anxiety. Continue Ativan on p.r.n. basis. 7. Mild hypercalcemia. We will continue to monitor. The patient is being seen by Dr. Hamm. We will wait for his recommendation. The patient is also being seen by Dr. Garcia from infectious disease standpoint. Result Diagram: 10/14/1804 10/14/18 0904 Results 24hrs Laboratory Tests Test 10/14/18 22:40 Bedside Glucose 95 Exam/Review of Systems Exam Vitals Vital Signs Date Temp Pulse Resp B/P (MAP) Pulse Ox O2 O2 Flow FiO2 Time Delivery Rate 10/15/18 77 08:00 10/15/18 98.0 18 90/52 (65) 96 Room Air 07:43 Intake and Output 10/14/18 10/14/18 10/15/18 1515:00 23:00 07:00 IntakeIntake Total 240 ml 150 ml OutputOutput Total 1900 ml BalanceBalance 240 ml -1750 ml Results Results 24hrs Laboratory Tests Test 10/14/18 22:40 Bedside Glucose 95 Medications Medication Current Medications Acetaminophen (Tylenol Liquid) 650 mg Q6 PRN GTB MILD PAIN(1-3) OR TEMP>38C; Start 10/05/18 at 14:30 Aspirin (Halfprin) 81 mg DAILY PO Last administered on 10/15/18at 08:26; Admin Dose 81 MG; Start 10/06/18 at 09:00 Bisacodyl (Dulcolax Supp) 10 mg DAILY PRN [place] CONSTIPATION; Start 10/05/18 at 14:30 Famotidine (Pepcid) 20 mg DAILY GTB Last administered on 10/15/18 08:26; Admin Dose 20 MG; Start 10/06/18 at 09:00 Hydroxyzine HCl (Atarax) 25 mg Q8H PRN GTB ITCHING; Start 10/05/18 at 14:30 Lorazepam (Ativan) 0.5 mg Q6H PRN GTB ANXIETY; Start 10/05/18 at 14:30 Magnesium Hydroxide (Milk Of Mag) 30 ml DAILY PRN GTB CONSTIPATION; Start at 14:30 Metoprolol Tartrate (Lopressor) 50 mg BID GTB Last administered on 10/14/18 21:00; Admin Dose 50 MG; Start 10/05/18 at 21:00 Multivit/Ca Carb/ B Cmplx/FA/Prenat (Stephanie-Johnny) 1 tab DAILY GTB Last administered on 10/15/18 08:26; Admin Dose 1 TAB; Start 10/06/18 at 09:00 Polyethylene Glycol (Miralax) 17 gm DAILY GTB Last administered on 10/15/18 08:26; Admin Dose 17 GM; Start 10/06/18 at 09:00 IV Flush (NS 3 ml) 3 ml PER PROTOCOL IV ; Start 10/05/18 at 14:30 Ondansetron HCl (Zofran Inj) 4 mg Q6H PRN IV NAUSEA/VOMITING; Start 10/05/18 at 14:30 Morphine Sulfate (morphine) 2 mg Q4H PRN IV .PAIN 7-10; Start 10/05/18 at 14:30 Epoetin Justen (Epogen (Esrd)) 10,000 units TuThSa@17 SC Last administered on 10/13/18 17:42; Admin Dose 10,000 UNITS; Start 10/06/18 at 17:00 Heparin Sodium (Porcine) (Heparin (1000 Units/ml)) 4,500 unit PRN CATHETER Last administered on 10/14/18 23:25; Admin Dose 4,500 UNIT; Start 10/06/18 at 07:30 Ampicillin 50 ml @ 100 mls/hr Q6 IVPB Last administered on 10/15/18at 06:05; Admin Dose 100 MLS/HR; Start 10/10/18 at 18:00 Lisinopril (Zestril) 10 mg DAILY GTB ; Start 10/13/18 at 09:00 Levetiracetam (Keppra) 500 mg BID PO Last administered on 10/15/18at 08:26; Admin Dose 500 MG; Start 10/14/18 at 23:30 Sevelamer Carbonate (Renvela) 1.6 gm WITH MEALS NGT ; Start 10/15/18 at 11:50 FREDDY LING Oct 15, 2018 11:16
[2018-10-15] MEDS: SEVELAMER CARBONATE 0.8 GM PKT NGT SCH ×2 (11:44→17:28)
--- NOTE | 2018-10-15 13:05 | CONS ---
Assessment/Plan Assessment/Plan Hospital Course (Demo Recall) ID PROGRESS NOTE CURRENT ABX: DAY # 10=> Ampicillin # 5 s/p Vanco IV & Cefepime 10/14/18 0904 10/14/18 0904 24H INTERVAL SUMMARY * POD #1 -> s/p placement under Fluoro new R-IJ HD catheter * Napping, VSS, NAD, no fevers -- chart reviewed DIAGNOSTIC IMAGING * 10/14/18 Fluoro: IMPRESSION: 1. Satisfactory insertion of right internal jugular vein temporary dialysis catheter with ultrasound and fluoroscopic guidance. MICRO/OTHER * 10/13/18 BCX (-) * 10/09/18 BCX (-) * 10/06/18 BCX (+) ENTEROCOCCUS * 10/05/18 BCX (+) ENTEROCOCCUS BLOOD CULTURE Final BCULT GRAM BOTTLE 1 Gram positive cocci in pairs and chains . seen on gram stain of the broth BCULT GRAM BOTTLE 2 Gram positive cocci in pairs and chain . seen on gram stain of the broth Organism 1 ENTEROCOCCUS SPECIES ENT SPS M.I.C. RX --------- --- AMPICILLIN <=2 S PENICILLIN-G 4 S VANCOMYCIN 1 S PHYSICAL EXAMINATION: GENERAL: VSS, Morbid obese F, napping in NAD HEENT: AT, NC, anicteric NECK: Supple, CHEST: Equal chest rise bilaterally, without dyspnea on observation HEART: Pulse RRR ABDOMEN: Soft / NT EXTREMITIES: Warm, dry SKIN: No rash, no diaphoresis ID ASSESSMENT 58 yo F admit with: 1. S/p sepsis, present on admission 2. Enterococcal bacteremia, s/p PermCath removed 10/12/18 * Repeat bld cx neg, * No vegetations per 2D ECHO 3. Morbid obesity 4. End-stage renal disease, hemodialysis dependent 5. Arrhythmia status post permanent pacemaker (-)MRSA Nares ABX ALLERGIES: KNDA INVASIVES: PIV CURRENT ABX: DAY # 10=> Ampicillin # 5 s/p Vanco IV & Cefepime ID RECOMMENDATIONS/PLAN: 1. New HD catheter placed 2. Would be easier to DC the patient on Vanco IV 1 GM Q96 Hrs to be given in HD unit by HD RN to complete 14 days 3. ID FURNACE FILLER Colleague to f/u tomorrow . Consultation Date/Type/Reason Admit Date/Time Oct 05, 2018 at 11:51 Initial Consult Date Date/Time of Note DATE: 10/15/18 TIME: 12:56 Exam/Review of Systems Exam Vitals Vital Signs Date Temp Pulse Resp B/P (MAP) Pulse Ox O2 O2 Flow FiO2 Time Delivery Rate 10/15/18 97.8 62 18 101/59 97 Room Air 11:45 (73) Intake and Output 10/14/18 10/14/18 10/15/18 1515:00 23:00 07:00 IntakeIntake Total 240 ml 150 ml OutputOutput Total 1900 ml BalanceBalance 240 ml -1750 ml Results Result Diagram: 10/14/1890310/14/18903 Results 24hrs Laboratory Tests Test 10/14/18 22:40 Bedside Glucose 95 Medications Medication Current Medications Acetaminophen (Tylenol Liquid) 650 mg Q6 PRN GTB MILD PAIN(1-3) OR TEMP>38C; Start 10/05/18 at 14:30 Aspirin (Halfprin) 81 mg DAILY PO Last administered on 10/15/18at 08:26; Admin Dose 81 MG; Start 10/06/18 at 09:00 Bisacodyl (Dulcolax Supp) 10 mg DAILY PRN [place] CONSTIPATION; Start 10/05/18 at 14:30 Famotidine (Pepcid) 20 mg DAILY GTB Last administered on 10/15/18 08:26; Admin Dose 20 MG; Start 10/06/18 at 09:00 Hydroxyzine HCl (Atarax) 25 mg Q8H PRN GTB ITCHING; Start 10/05/18 at 14:30 Lorazepam (Ativan) 0.5 mg Q6H PRN GTB ANXIETY; Start 10/05/18 at 14:30 Magnesium Hydroxide (Milk Of Mag) 30 ml DAILY PRN GTB CONSTIPATION; Start 10/05/18 at 14:30 Metoprolol Tartrate (Lopressor) 50 mg BID GTB Last administered on 10/14/18at 21:00; Admin Dose 50 MG; Start 10/05/18 at 21:00 Multivit/Ca Carb/ B Cmplx/FA/Prenat (Stephanie-Johnny) 1 tab DAILY GTB Last administered on 10/15/18 08:26; Admin Dose 1 TAB; Start 10/06/18 at 09:00 Polyethylene Glycol (Miralax) 17 gm DAILY GTB Last administered on 10/15/18 08:26; Admin Dose 17 GM; Start 10/06/18 at 09:00 IV Flush (NS 3 ml) 3 ml PER PROTOCOL IV ; Start 10/05/18 at 14:30 Ondansetron HCl (Zofran Inj) 4 mg Q6H PRN IV NAUSEA/VOMITING; Start 10/05/18 at 14:30 Morphine Sulfate (morphine) 2 mg Q4H PRN IV .PAIN 7-10; Start 10/05/18 at 14:30 Epoetin Justen (Epogen (Esrd)) 10,000 units TuThSa@17 SC Last administered on 10/13/18 17:42; Admin Dose 10,000 UNITS; Start 10/06/18 at 17:00 Heparin Sodium (Porcine) (Heparin (1000 Units/ml)) 4,500 unit PRN CATHETER Last administered on 10/14/18 23:25; Admin Dose 4,500 UNIT; Start 10/06/18 at 07:30 Ampicillin 50 ml @ 100 mls/hr Q6 IVPB Last administered on 10/15/18 11:44; Admin Dose 100 MLS/HR; Start 10/10/18 at 18:00 Lisinopril (Zestril) 10 mg DAILY GTB ; Start 10/13/18 at 09:00 Levetiracetam (Keppra) 500 mg BID PO Last administered on 10/15/18 08:26; Admin Dose 500 MG; Start 10/14/18 at 23:30 Sevelamer Carbonate (Renvela) 1.6 gm WITH MEALS NGT Last administered on 10/15/18 11:44; Admin Dose 1.6 GM; Start 10/15/18 at 11:50 YANELI WELCH NP Oct 15, 2018 13:05
--- NOTE | 2018-10-15 13:34 | CONS ---
Assessment/Plan Assessment/Plan Hospital Course 58 yo F with multiple comorbidities who presents for evaluation of leukocytosis. Noted to have a transient loss of consciousness during HD on 10/14, followed by an increasing ams... for which neurology is consulted. Likely an acute toxic-metabolic encephalopathy. Seizure is additionally considered.. Stroke is not yet excluded. P: CTH without contrast for further characterization EEG to evaluate for epileptiform activity Cont medical management per primary Reorient as necessary Limit sedating medications where possible Will follow clinically, to recommend neurologic studies, as necessary Consultation Date/Type/Reason Admit Date/Time Oct 05, 2018 at 11:51 Type of Consult Neurology Reason for Consultation ams Requesting Provider: LEW RODRÍGUEZ MD Date/Time of Note DATE: 10/15/18 TIME: 13:34 Hx of Present Illness 58 yo F with hx of CVA, ESRD on HD, HTN, pacemaker and multiple other comorbidities who initially presented from a snf for evaluation of leukocytosis. History was obtained from chart review as pt is a limited historian. Yesterday, 10/14, she was noted to have a staring spell during an HD session followed by ams afterwards. The pt does not recall the details of the situation, but thinks she may have passed out. It is elsewhere noted: Hx of Present Illness The patient is a 58-year-old female with history of cerebrovascular vascular accident, acute respiratory failure requiring tracheostomy and ventilatory support, currently decannulated, dysphagia with G-tube however patient is able to take p.o. diet at nursing home facility, history of end-stage renal renal disease with hemodialysis 3 times a week, history of heart block status post pacemaker, hypertension, anemia, GERD, bilateral upper extremity cellulitis. Patient was brought from nursing home facility for evaluation for leukocytosis noted on routine labs. Patient is awake alert to name and situation however cannot provide any history most of the history was obtained from medical records and talking to nursing staff. Patient white blood cells are noted to be elevated to 21,000 patient also had fever. Patient was diagnosed with sepsis and started on broad-spectrum antibiotics and admitted for further evaluation and management to telemetry floor. negative unless noted otherwise in HPI Exam/Review of Systems Exam Vitals Vital Signs Date Temp Pulse Resp B/P (MAP) Pulse Ox O2 O2 Flow FiO2 Time Delivery Rate 10/15/18 97.8 62 18 101/59 97 Room Air 11:45 (73) Intake and Output 10/14/18 10/14/18 10/15/18 1515:00 23:00 07:00 IntakeIntake Total 240 ml 150 ml OutputOutput Total 1900 ml BalanceBalance 240 ml -1750 ml Exam PE: Gen Appearance: No Apparent Distress HEENT: Normocephalic Cardiovascular: Regular rate Abdomen: Soft Extremities: Dry NE: The patient was alert and oriented to self and hospital. Language was normal. Fund of knowledge was limited. Pupils were equal and reactive to light. There was no afferent pupillary defect. Visual mccoy were normal. Funduscopic examination was limited. Extra-ocular movements were full. Ptosis was absent. There was no nystagmus. Facial sensation was normal. Face was symmetric with normal strength. Hearing was intact. Palate movements were normal. Neck strength was normal. There was normal tongue bulk and speed of movement. Tone was normal. Muscle bulk was normal. I did not see fasciculations. The pt was generally weak. Vibration sensation was normal. Temperature and pinprick sensation was normal. Rapid alternating movements were normal. There was no dysmetria. There was no intention tremor. Gait was deferred due to bedrest. Arm and leg reflexes were 2+ and symmetric. Etienne's sign was absent. Plantar responses were flexor. Results Result Diagram: 10/14/1890310/14/18903 Results 24hrs Laboratory Tests Test 10/14/18 22:40 Bedside Glucose 95 Medications Medication Current Medications Acetaminophen (Tylenol Liquid) 650 mg Q6 PRN GTB MILD PAIN(1-3) OR TEMP>38C; Start 10/05/18 at 14:30 Aspirin (Halfprin) 81 mg DAILY PO Last administered on 10/15/18at 08:26; Admin Dose 81 MG; Start 10/06/18 at 09:00 Bisacodyl (Dulcolax Supp) 10 mg DAILY PRN [place] CONSTIPATION; Start 10/05/18 at 14:30 Famotidine (Pepcid) 20 mg DAILY GTB Last administered on 10/15/18at 08:26; Admin Dose 20 MG; Start 10/06/18 at 09:00 Hydroxyzine HCl (Atarax) 25 mg Q8H PRN GTB ITCHING; Start 10/05/18 at 14:30 Lorazepam (Ativan) 0.5 mg Q6H PRN GTB ANXIETY; Start 10/05/18 at 14:30 Magnesium Hydroxide (Milk Of Mag) 30 ml DAILY PRN GTB CONSTIPATION; Start 10/05/18 at 14:30 Metoprolol Tartrate (Lopressor) 50 mg BID GTB Last administered on 10/14/18 21:00; Admin Dose 50 MG; Start 10/05/18 at 21:00 Multivit/Ca Carb/ B Cmplx/FA/Prenat (Stephanie-Johnny) 1 tab DAILY GTB Last administered on 10/15/18 08:26; Admin Dose 1 TAB; Start 10/06/18 at 09:00 Polyethylene Glycol (Miralax) 17 gm DAILY GTB Last administered on 10/15/18 08:26; Admin Dose 17 GM; Start 10/06/18 at 09:00 IV Flush (NS 3 ml) 3 ml PER PROTOCOL IV ; Start 10/05/18 at 14:30 Ondansetron HCl (Zofran Inj) 4 mg Q6H PRN IV NAUSEA/VOMITING; Start 10/05/18 at 14:30 Morphine Sulfate (morphine) 2 mg Q4H PRN IV .PAIN 7-10; Start 10/05/18 at 14:30 Epoetin Doretha (Epogen (Esrd)) 10,000 units TuThSa@17 SC Last administered on 10/13/18 17:42; Admin Dose 10,000 UNITS; Start 10/06/18 at 17:00 Heparin Sodium (Porcine) (Heparin (1000 Units/ml)) 4,500 unit PRN CATHETER Last administered on 10/14/18 23:25; Admin Dose 4,500 UNIT; Start 10/06/18 at 07:30 Ampicillin 50 ml @ 100 mls/hr Q6 IVPB Last administered on 10/15/18 11:44; Admin Dose 100 MLS/HR; Start 10/10/18 at 18:00 Lisinopril (Zestril) 10 mg DAILY GTB ; Start 10/13/18 at 09:00 Levetiracetam (Keppra) 500 mg BID PO Last administered on 10/15/18 08:26; Admin Dose 500 MG; Start 10/14/18 at 23:30 Sevelamer Carbonate (Renvela) 1.6 gm WITH MEALS NGT Last administered on 10/15/18at 11:44; Admin Dose 1.6 GM; Start 10/15/18 at 11:50 Past Medical History reviewed Medical History: hypertension, renal disease Home Meds Reported Medications Bisacodyl (Dulcolax) 10 Mg Supp.rect, 10 MG RC DAILY PRN for CONSTIPATION, SUPP.RECT 10/05/18 Na Phos,M-B/Na Phos,Di-Ba (ENEMA [id number]) 133 Ml Enema, 133 ML RC EVERY 72 HOURS PRN for CONSTIPATION, ENEMA 10/05/18 Polyethylene Glycol* (Miralax*) 17 Gm Powd.pack, 17 GM GTB DAILY, #30 PACKET 10/05/18 Epoetin doretha* (Epogen*) 3,000 Unit/1 Ml Vial, [address]40 UNIT SC [place], VIAL 10/05/18 Famotidine* (Famotidine*) 20 Mg Tablet, 20 MG GTB DAILY, #30 TAB 10/05/18 Hydroxyzine Hcl* (Hydroxyzine Hcl*) 25 Mg Tablet, 25 MG GTB Q8H PRN for ITCHING, #30 TAB 10/05/18 Ipratropium-Albuterol (Ipratropium-Albuterol) 0.5-3 Mg/3 Ml Ampul.neb, 3 ML INHALATION Q6 PRN for WHEEZING AND SOB, #30 VIAL 10/05/18 Lansoprazole* (Lansoprazole*) 30 Mg Capsule.dr, 30 MG GTB DAILY, CAP 10/05/18 Lisinopril* (Lisinopril*) 30 Mg Tablet, 30 MG GTB DAILY, #30 TAB HOLD IF SBP <110 OR HR <60 10/05/18 Lorazepam* (Lorazepam*) 0.5 Mg Tablet, 0.5 MG GTB Q6 PRN for ANXIETY, TAB 10/05/18 Metoprolol Tartrate* (Lopressor*) 50 Mg Tab, 50 MG GTB BID, #60 TAB HOLD IF SBP <110 OR HR <60 10/05/18 Nystatin-Triamcinolone* (Nystatin-Triamcinolone* Cream) 15 Gm Cream.gm., 1 APPLIC TOP BID, #1 TUB 10/05/18 Protein Supplement (Promod) 946 Ml Liquid, 30 ML GTB BID 10/05/18 Multivit/Ca Carb/B Cmplx/Fa* (Stephanie-Johnny*) 1 Tab Tab, 1 TAB GTB DAILY, TAB 10/05/18 Magnesium Hydroxide* (Milk Of Magnesia*) 400 Mg/5 Ml Oral.susp, 30 ML GTB DAILY PRN for CONSTIPATION, ML 10/05/18 Aspirin (Low Dose Aspirin) 81 Mg Tablet.dr, 81 MG GTB DAILY, #30 TAB 10/05/18 Acetaminophen* (Acetaminophen* Susp) 325 Mg/10.15 Ml Solution, 650 MG GTB Q6 PRN for PAIN OR TEMP ABOVE 38C, ML 10/05/18 Medications Current Medications Acetaminophen (Tylenol Liquid) 650 mg Q6 PRN GTB MILD PAIN(1-3) OR TEMP>38C; Start 10/05/18 at 14:30 Aspirin (Halfprin) 81 mg DAILY PO Last administered on 10/15/18 08:26; Admin Dose 81 MG; Start 10/06/18 at 09:00 Bisacodyl (Dulcolax Supp) 10 mg DAILY PRN [place] CONSTIPATION; Start 10/05/18 at 14:30 Famotidine (Pepcid) 20 mg DAILY GTB Last administered on 10/15/18 08:26; Admin Dose 20 MG; Start 10/06/18 at 09:00 Hydroxyzine HCl (Atarax) 25 mg Q8H PRN GTB ITCHING; Start 10/05/18 at 14:30 Lorazepam (Ativan) 0.5 mg Q6H PRN GTB ANXIETY; Start 10/05/18 at 14:30 Magnesium Hydroxide (Milk Of Mag) 30 ml DAILY PRN GTB CONSTIPATION; Start 10/05/18 at 14:30 Metoprolol Tartrate (Lopressor) 50 mg BID GTB Last administered on 10/14/18at 21:00; Admin Dose 50 MG; Start 10/05/18 at 21:00 Multivit/Ca Carb/ B Cmplx/FA/Prenat (Stephanie-Johnny) 1 tab DAILY GTB Last administered on 10/15/18 08:26; Admin Dose 1 TAB; Start 10/06/18 at 09:00 Polyethylene Glycol (Miralax) 17 gm DAILY GTB Last administered on 10/15/18 08:26; Admin Dose 17 GM; Start 10/06/18 at 09:00 IV Flush (NS 3 ml) 3 ml PER PROTOCOL IV ; Start 10/05/18 at 14:30 Ondansetron HCl (Zofran Inj) 4 mg Q6H PRN IV NAUSEA/VOMITING; Start 10/05/18 at 14:30 Morphine Sulfate (morphine) 2 mg Q4H PRN IV .PAIN 7-10; Start 10/05/18 at 14:30 Epoetin Doretha (Epogen (Esrd)) 10,000 units TuThSa@17 SC Last administered on 10/13/18 17:42; Admin Dose 10,000 UNITS; Start 10/06/18 at 17:00 Heparin Sodium (Porcine) (Heparin (1000 Units/ml)) 4,500 unit PRN CATHETER Last administered on 10/14/18 23:25; Admin Dose 4,500 UNIT; Start 10/06/18 at 07:30 Ampicillin 50 ml @ 100 mls/hr Q6 IVPB Last administered on 10/15/18 11:44; Admin Dose 100 MLS/HR; Start 10/10/18 at 18:00 Lisinopril (Zestril) 10 mg DAILY GTB ; Start 10/13/18 at 09:00 Levetiracetam (Keppra) 500 mg BID PO Last administered on 10/15/18 08:26; Admin Dose 500 MG; Start 10/14/18 at 23:30 Sevelamer Carbonate (Renvela) 1.6 gm WITH MEALS NGT Last administered on 10/15/18 11:44; Admin Dose 1.6 GM; Start 10/15/18 at 11:50 Allergies: Coded Allergies: No Known Allergy (Unverified , 10/05/18) Past Surgical History reviewed Past Surgical Hx: other (Status post tracheostomy and subsequent decannulation, status post G-tube placement) Social History reviewed Smoking Status: Never smoker REGINA ROSALES NP Oct 15, 2018 13:34 LORENZA GALARZA Oct 15, 2018 19:14
[2018-10-15] MEDS: EPOETIN 10000 UNITS/1 ML INJ (ESRD) SC SCH (17:28)
[2018-10-16] VITALS (29 sets, daily range): BP systolic 81–125; BP diastolic 42–81; PULSE 73–113; RESP 18–20
[2018-10-16] MEDS: AMPICILLIN 1 GM/NS (PMX) 50 ML IVPB SCH ×3 (05:41→21:13)
--- NOTE | 2018-10-16 06:02 | EEG ---
EEG NOTE Report Details DATE OF TEST: 10/15/18 HISTORY: The patient is a 58-year-old F who presents with altered mental status and LOC. This EEG is requested to evaluate for an epileptic disorder. SEDATION: None. CONDITIONS OF RECORDING: This EEG was recorded digitally on the [employer] machine, using the International 10-20 System of electrodes plus anterior temporals and [place]. STATES SAMPLED: Lethargic. FINDINGS: There is an abundance of high frequency artifact.. A well-formed posterior dominant rhythm is absent. The normal vuhvxyhu-dd-bjqybixze frequency-amplitude gradient was absent. Photic stimulation does not elicit any definite driving responses or epileptiform discharges. Hyperventilation was not performed. No asymmetries, focal abnormalities or epileptiform discharges were seen. IMPRESSION: Technically limited, though abnormal electroencephalogram due to: diffuse slowing. COMMENT: The slowing of the background indicates diffuse cortical dysfunction of non specific etiology. LORENZA GALARZA Oct 16, 2018 06:02
[2018-10-16] MEDS: FAMOTIDINE 20 MG TAB GTB SCH (08:22)
[2018-10-16] MEDS: LEVETIRACETAM 500 MG TAB PO SCH (08:22)
[2018-10-16] MEDS: METOPROLOL 50 MG TAB GTB SCH ×2 (08:23→20:14)
[2018-10-16] MEDS: POLYETHYLENE GLYCOL 17 GM PACKET GTB SCH (08:23)
[2018-10-16] MEDS: MULTIVIT/CA CARB/B CMPLX/FA TAB GTB SCH (08:23)
[2018-10-16] MEDS: LISINOPRIL 10 MG TAB GTB SCH (08:23)
[2018-10-16] MEDS: SEVELAMER CARBONATE 0.8 GM PKT NGT SCH ×3 (08:23→17:36)
[2018-10-16] MEDS: ASPIRIN (EC) 81 MG TAB PO SCH (08:23)
--- NOTE | 2018-10-16 09:10 | PN ---
Date/Time of Note Date/Time of Note DATE: 10/16/18 TIME: 09:10 Assessment/Plan VTE Prophylaxis Risk score (from Nsg)>0 risk: 6 SCD applied (from Nsg): Yes Pharmacological prophylaxis: other Lines/Catheters IV Catheter Type (from Nrsg): Mino cath Urinary Cath still in place: No Assessment/Plan Hospital Course renal follow up SUBJECTIVE: The patient is stable, no events overnight. No fevers, chills, nausea, or vomiting. OBJECTIVE: HEENT: Head is normocephalic. NECK: Supple. HEART: Regular rate. LUNGS: Show diminished breath sounds at the base. ABDOMEN: Soft, nontender to palpation. No rebound or guarding. EXTREMITIES: Negative for clubbing, cyanosis, no edema. DERMATOLOGIC: No rashes. MUSCULOSKELETAL: No joint effusion. NEUROLOGIC: No change in exam. MEDICATIONS: Reviewed. LABORATORY DATA: reviewed ASSESSMENT AND PLAN: 1. End-stage renal disease. The patient's Perm-A-Cath was removed. The patient had a new temp line placed. will be dialyzed today to correct hypercalcemia and hypervolemia 2. Sepsis secondary to line infection. The patient's Perm-A-Cath was removed. A Mino catheter is now in place. We will continue current antibiotic regimen. The patient will likely need a new Perm-A-Cath placement in the next few days once repeat blood cultures are negative. 3. Anemia. Continue to monitor hemoglobin and hematocrit levels. Continue Epogen. 4. Mineral bone disorder. will add renvela. will adjust dialysate to correct hypercalcemia (due to immobility) 5. Hypertension. Continue current blood pressure regimen. 6. Obesity. Continue dietary modification. 7. Encephalopathy. Continue to monitor. 8. Arrhythmia. Continue current treatment plan. The patient is status post pacemaker. Result Diagram: 10/14/1804 10/14/18 0904 Exam/Review of Systems Exam Vitals Vital Signs Date Temp Pulse Resp B/P (MAP) Pulse Ox O2 O2 Flow FiO2 Time Delivery Rate 10/16/18 98.2 87 20 98/55 (69) 94 Room Air 07:29 Intake and Output 10/15/18 10/15/18 10/16/18 1515:00 23:00 07:00 IntakeIntake Total 610 ml 170 ml BalanceBalance 610 ml 170 ml Medications Medication Current Medications Acetaminophen (Tylenol Liquid) 650 mg Q6 PRN GTB MILD PAIN(1-3) OR TEMP>38C; Start 10/05/18 at 14:30 Aspirin (Halfprin) 81 mg DAILY PO Last administered on 10/16/18 08:23; Admin Dose 81 MG; Start 10/06/18 at 09:00 Bisacodyl (Dulcolax Supp) 10 mg DAILY PRN [place] CONSTIPATION; Start 10/05/18 at 14:30 Famotidine (Pepcid) 20 mg DAILY GTB Last administered on 10/16/18 08:22; Admin Dose 20 MG; Start 10/06/18 at 09:00 Hydroxyzine HCl (Atarax) 25 mg Q8H PRN GTB ITCHING; Start 10/05/18 at 14:30 Lorazepam (Ativan) 0.5 mg Q6H PRN GTB ANXIETY Last administered on 10/15/18 22:18; Admin Dose 0.5 MG; Start 10/05/18 at 14:30 Magnesium Hydroxide (Milk Of Mag) 30 ml DAILY PRN GTB CONSTIPATION; Start 10/05/18 at 14:30 Metoprolol Tartrate (Lopressor) 50 mg BID GTB Last administered on 10/14/18 21: 00; Admin Dose 50 MG; Start 10/05/18 at 21:00 Multivit/Ca Carb/ B Cmplx/FA/Prenat (Stephanie-Johnny) 1 tab DAILY GTB Last administered on 10/16/18 08:23; Admin Dose 1 TAB; Start 10/06/18 at 09:00 Polyethylene Glycol (Miralax) 17 gm DAILY GTB Last administered on 10/16/18 08:23; Admin Dose 17 GM; Start 10/06/18 at 09:00 IV Flush (NS 3 ml) 3 ml PER PROTOCOL IV ; Start 10/05/18 at 14:30 Ondansetron HCl (Zofran Inj) 4 mg Q6H PRN IV NAUSEA/VOMITING; Start 10/05/18 at 14:30 Morphine Sulfate (morphine) 2 mg Q4H PRN IV .PAIN 7-10; Start 10/05/18 at 14:30 Epoetin Justen (Epogen (Esrd)) 10,000 units TuThSa@17 SC Last administered on 10/15/18 17:28; Admin Dose 10,000 UNITS; Start 10/06/18 at 17:00 Heparin Sodium (Porcine) (Heparin (1000 Units/ml)) 4,500 unit PRN CATHETER Last administered on 10/14/18 23:25; Admin Dose 4,500 UNIT; Start 10/06/18 at 07:30 Lisinopril (Zestril) 10 mg DAILY GTB ; Start 10/13/18 at 09:00 Levetiracetam (Keppra) 500 mg BID PO Last administered on 10/16/18 08:22; Admin Dose 500 MG; Start 10/14/18 at 23:30 Sevelamer Carbonate (Renvela) 1.6 gm WITH MEALS NGT Last administered on 10/16/18 08:23; Admin Dose 1.6 GM; Start 10/15/18 at 11:50 Ampicillin 50 ml @ 100 mls/hr Q8 IVPB Last administered on 10/16/18 05:41; Admin Dose 100 MLS/HR; Start 10/15/18 at 22:00 BIJAL RIBEIRO DO Oct 16, 2018 09:10
[2018-10-16] MEDS ORDERED: ALBUMIN HUMAN 25% 100 ML IV STA (11:32)
[2018-10-16] MEDS: HEPARIN 1000 UNITS/ML 10 ML INJ CATHETER SCH (11:48)
--- NOTE | 2018-10-16 12:33 | PN ---
DATE: 10/16/2018 SUBJECTIVE: Follow up on line sepsis, cardiac arrest, anoxic encephalopathy, possible seizures and c hronic kidney disease, hypertension, diastolic heart failure, anemia of chronic disease, dysphagia. The patient is more awake, alert, and is on BiPAP at her baseline. The patient follows simple comman ds, does have cognitive impairment including forgetfulness and confusion, but remains awake and alert . No reported any tonic-clonic activity. No reported vomiting, no reported fever or chills. No rep orted bleeding from any site. The patient does not have any respiratory distress after she was decan nulated recently. The patient is awake, alert. PHYSICAL EXAMINATION: VITAL SIGNS: Temperature 98.2, pulse 102, respirations 20, blood pressure 98/55, O2 saturation 94% r oom air. HEENT: No eye discharge or redness. Conjunctivae normal. Oropharynx clear. NECK: Supple. No thyromegaly. CHEST: Diminished air entry at bases. No wheeze present. CARDIOVASCULAR: S1, S2 normal, no murmur. The patient in sinus rhythm. ABDOMEN: Soft, nontender. G-tube in place. EXTREMITIES: Trace edema. NEUROLOGIC: The patient is awake, alert, follows simple commands. Has no gross focal deficit, altho ugh has generalized weakness. SKIN: The patient has chronic skin changes in both upper and lower extremities. LABORATORY DATA: Recent labs: Sodium 136, potassium 4, BUN 26, creatinine 9, glucose 84, calcium 10.8 . WBC 8.8, hemoglobin 8.9, platelet 268. Recent blood culture negative. IMPRESSION: 1. Transient loss of consciousness, possible seizure. Patient has been empirically started on Keppr a. EEG results reviewed. The patient has a slowing of background indicative of diffuse cortical dys function of nonspecific etiology. The patient does have history of cardiac arrest and anoxic encepha lopathy. We will continue to monitor and wait for further recommendation from neurology. 2. CKD. Continue hemodialysis. 3. Enterococci line sepsis. Continue IV ampicillin 4. Hypertension. Patient's blood pressure has been hovering in 90s. Will discontinue Zestril. Con tinue beta blockers. The patient's EF is 55% on recent echocardiogram done in 10/04/2018. 5. Anemia of chronic kidney disease. Continue Procrit. 6. Dysphagia. Continue pureed diet. Recent brain CT did not have any acute intracranial bleed. We will start her on heparin for DVT prophylaxis. Dictated By: LEW CARRILLO/GEOVANI Conf#: [id number] DID#: [id number]
--- NOTE | 2018-10-16 15:55 | CONS ---
Assessment/Plan Assessment/Plan Hospital Course (Demo Recall) Alert, looks comfortable, no fevers Microbiology: Blood culture on admission grew enterococcus species susceptible to ampicillin Antimicrobials: Ampicillin IV Indwelling: Right IJ Mino Physical examination: Morbidly obese well-developed -[place] woman who is awake in no distress. Head atraumatic normocephalic. Neck is obese. Chest rise symmetrical. Right chest permacath present. Breath sounds clear, diminished bases. Heart: S1-S2. Abdomen obese, soft. Bowel sounds present. Extremities without cyanosis. Assessment: 1. S/p sepsis, present on admission 2. Enterococcal bacteremia, s/p permacath removed 10/12/18 3. Morbid obesity 4. End-stage renal disease, hemodialysis dependent 5. Arrhythmia status post permanent pacemaker Plan: Stable, repeat bld cx neg, no vegetations per 2D ECHO, continue antibiotics, okay for permacath Consultation Date/Type/Reason Admit Date/Time Oct 05, 2018 at 11:51 Initial Consult Date Type of Consult id Requesting Provider: LEW RODRÍGUEZ MD Date/Time of Note DATE: 10/16/18 TIME: 15:54 Exam/Review of Systems Exam Vitals Vital Signs Date Temp Pulse Resp B/P (MAP) Pulse Ox O2 O2 Flow FiO2 Time Delivery Rate 10/16/18 98.6 80 20 99/47 (64) 94 Room Air 15:15 Intake and Output 10/15/18 10/15/18 10/16/18 1515:00 23:00 07:00 IntakeIntake Total 610 ml 170 ml BalanceBalance 610 ml 170 ml Results Result Diagram: 10/14/1890310/14/18903 Medications Medication Current Medications Acetaminophen (Tylenol Liquid) 650 mg Q6 PRN GTB MILD PAIN(1-3) OR TEMP>38C; Start 10/05/18 at 14:30 Aspirin (Halfprin) 81 mg DAILY PO Last administered on 10/16/18at 08:23; Admin Dose 81 MG; Start 10/06/18 at 09:00 Bisacodyl (Dulcolax Supp) 10 mg DAILY PRN [place] CONSTIPATION; Start 10/05/18 at 14:30 Famotidine (Pepcid) 20 mg DAILY GTB Last administered on 10/16/18at 08:22; Admin Dose 20 MG; Start 10/06/18 at 09:00 Hydroxyzine HCl (Atarax) 25 mg Q8H PRN GTB ITCHING Last administered on 10/16/18 09:51; Admin Dose 25 MG; Start 10/05/18 at 14:30 Lorazepam (Ativan) 0.5 mg Q6H PRN GTB ANXIETY Last administered on 10/15/18 22:18; Admin Dose 0.5 MG; Start 10/05/18 at 14:30 Magnesium Hydroxide (Milk Of Mag) 30 ml DAILY PRN GTB CONSTIPATION; Start 10/05/18 at 14:30 Metoprolol Tartrate (Lopressor) 50 mg BID GTB Last administered on 10/14/18 21:00; Admin Dose 50 MG; Start 10/05/18 at 21:00 Multivit/Ca Carb/ B Cmplx/FA/Prenat (Stephanie-Johnny) 1 tab DAILY GTB Last administered on 10/16/18 08:23; Admin Dose 1 TAB; Start 10/06/18 at 09:00 Polyethylene Glycol (Miralax) 17 gm DAILY GTB Last administered on 10/16/18 08:23; Admin Dose 17 GM; Start 10/06/18 at 09:00 IV Flush (NS 3 ml) 3 ml PER PROTOCOL IV ; Start 10/05/18 at 14:30 Ondansetron HCl (Zofran Inj) 4 mg Q6H PRN IV NAUSEA/VOMITING; Start 10/05/18 at 14:30 Morphine Sulfate (morphine) 2 mg Q4H PRN IV .PAIN 7-10; Start 10/05/18 at 14:30 Epoetin Justen (Epogen (Esrd)) 10,000 units TuThSa@17 SC Last administered on 10/15/18 17:28; Admin Dose 10,000 UNITS; Start 10/06/18 at 17:00 Heparin Sodium (Porcine) (Heparin (1000 Units/ml)) 4,500 unit PRN CATHETER Last administered on 10/16/18 11:48; Admin Dose 2,600 UNIT; Start 10/06/18 at 07:30 Levetiracetam (Keppra) 500 mg BID PO Last administered on 10/16/18 08:22; Admin Dose 500 MG; Start 10/14/18 at 23:30 Sevelamer Carbonate (Renvela) 1.6 gm WITH MEALS NGT Last administered on 10/16/18at 12:33; Admin Dose 1.6 GM; Start 10/15/18 at 11:50 Ampicillin 50 ml @ 100 mls/hr Q8 IVPB Last administered on 10/16/18at 13:44; Admin Dose 100 MLS/HR; Start 10/15/18 at 22:00 Heparin Sodium (Porcine) (Heparin (5000 Units/1ml)) 5,000 unit BID SC ; Start 10/16/18 at 21:00 BEST ALANIS NP Oct 16, 2018 15:55
--- NOTE | 2018-10-16 16:01 | CONS ---
Assessment/Plan Assessment/Plan Hospital Course 58 yo F with multiple comorbidities who presents for evaluation of leukocytosis. Noted to have a transient loss of consciousness during HD on 10/14, followed by an increasing ams... for which neurology is consulted. Likely an acute toxic-metabolic encephalopathy. Seizure was additionally considered.. However, her EEG is without evidence of epileptiform activity.. Stroke is less likely, though not yet definitively excluded... CTH is without obvious acute intracranial pathology.. MRI brain is contraindicated 2/2 pacemaker.. P: Hold Keppra for now Ativan iv prn prolonged seizure of cluster Cont medical management per primary Reorient as necessary Limit sedating medications where possible Will follow clinically Consultation Date/Type/Reason Admit Date/Time Oct 05, 2018 at 11:51 Type of Consult Neurology Reason for Consultation ams Requesting Provider: LEW RODRÍGUEZ MD Date/Time of Note DATE: 10/16/18 TIME: 15:56 24 HR Interval Summary Free Text/Dictation Continues acute care Exam Vital Signs Vitals Vital Signs Date Temp Pulse Resp B/P (MAP) Pulse Ox O2 O2 Flow FiO2 Time Delivery Rate 10/16/18 98.6 80 20 99/47 (64) 94 Room Air 15:15 Intake and Output 10/15/18 10/15/18 10/16/18 1515:00 23:00 07:00 IntakeIntake Total 610 ml 170 ml BalanceBalance 610 ml 170 ml Exam PE: Gen Appearance: No Apparent Distress HEENT: Normocephalic Cardiovascular: Regular rate Abdomen: Soft Extremities: Dry NE: The patient was alert and oriented to self and hospital. Language was normal. Fund of knowledge was limited. Pupils were equal and reactive to light. There was no afferent pupillary defect. Visual mccoy were normal. Funduscopic examination was limited. Extra-ocular movements were full. Ptosis was absent. There was no nystagmus. Facial sensation was normal. Face was symmetric with normal strength. Hearing was intact. Palate movements were normal. Neck strength was normal. There was normal tongue bulk and speed of movement. Tone was normal. Muscle bulk was normal. I did not see fasciculations. Arms and legs were symmetric.. Vibration sensation was reduced distally. Temperature and pinprick sensation was normal. Rapid alternating movements were normal. There was no dysmetria. There was no intention tremor. Gait was deferred due to bedrest. Arm and leg reflexes were symmetric. Etienne's sign was absent. Plantar responses were flexor. LORENZA GALARZA Oct 16, 2018 16:01
[2018-10-16] MEDS: HEPARIN 5,000 UNIT/1 ML VIAL SC SCH (20:22)
[2018-10-17] VITALS (13 sets, daily range): BP systolic 80–130; BP diastolic 47–61; PULSE 67–89; RESP 16–20
[2018-10-17] MEDS: AMPICILLIN 1 GM/NS (PMX) 50 ML IVPB SCH ×3 (06:18→22:00)
[2018-10-17] MEDS: HEPARIN 5,000 UNIT/1 ML VIAL SC SCH ×2 (09:00→21:26)
[2018-10-17] MEDS: POLYETHYLENE GLYCOL 17 GM PACKET GTB SCH (09:00)
[2018-10-17] MEDS: ASPIRIN (EC) 81 MG TAB PO SCH (09:00)
--- NOTE | 2018-10-17 09:02 | PN ---
DATE: 10/17/2018 SUBJECTIVE: The patient is stable, no events overnight. No fevers, chills, nausea, or vomiting. OBJECTIVE: VITAL SIGNS: Blood pressure is 103/52, respirations 16, pulse 79, temperature 97.7. HEENT: Head is normocephalic. NECK: Supple. HEART: Regular rate. LUNGS: Show diminished breath sounds at the base. ABDOMEN: Soft, nontender to palpation. No rebound or guarding. EXTREMITIES: Negative for clubbing, cyanosis, no edema. DERMATOLOGIC: No rashes. MUSCULOSKELETAL: No joint effusion. NEUROLOGIC: No change in exam. MEDICATIONS: Reviewed. LABORATORY DATA: Reviewed. ASSESSMENT AND PLAN: 1. End-stage renal disease. The patient's Perm-A-Cath removed, a Mino catheter was placed. The patient's repeat cultures have been negative. We will continue intermittent hemodialysis. Anticipat e Perm-A-Cath placement. 2. Sepsis secondary to line infection. The patient's Perm-A-Cath was removed. Mino catheter is now placed. Continue current antibiotic regimen. We will order a new Perm-A-Cath as the patient has been cleared by infectious disease. 3. Anemia. Continue to monitor hemoglobin and hematocrit levels. Continue Epogen. 4. Mineral bone disorder. Monitor calcium and phosphorus levels. Continue phosphate binders. 5. Hypertension. Continue current blood pressure regimen. 6. Obesity. Continue dietary modification. 7. Encephalopathy. Continue to monitor. 8. Sinus arrhythmia. The patient has a history of pacemaker placement. Continue to monitor. Dictated By: KAYLENE SÁNCHEZ DO NR/NTS Conf#: [id number] DID#: [id number] CC: LEW RODRÍGUEZ MD;*EndCC*
[2018-10-17] MEDS: SEVELAMER CARBONATE 0.8 GM PKT NGT SCH ×3 (09:23→18:10)
[2018-10-17] MEDS: FAMOTIDINE 20 MG TAB GTB SCH (09:23)
[2018-10-17] MEDS: MULTIVIT/CA CARB/B CMPLX/FA TAB GTB SCH (09:23)
[2018-10-17] MEDS: METOPROLOL 50 MG TAB GTB SCH ×2 (09:31→21:16)
[2018-10-17] MEDS ORDERED: LIDOCAINE 1% (MDV) 20 ML INJ ONE ×2 (09:40→10:58)
[2018-10-17] MEDS ORDERED: HEPARIN 1000 UNITS/ML 10 ML INJ ONE (09:40)
[2018-10-17] MEDS ORDERED: FENTAnyl 50 MCG/ML VIAL ONE (09:40)
--- NOTE | 2018-10-17 11:28 | HPN ---
Date/Time of Note Date/Time of Note DATE: 10/17/18 TIME: 11:28 Interval H&P Admission Note Pt. seen H&P reviewed: No system changes JAVIER AGUIRRE MD Oct 17, 2018 11:28
--- NOTE | 2018-10-17 14:29 | CONS ---
Assessment/Plan Assessment/Plan Hospital Course (Demo Recall) Alert, looks comfortable, no fevers Microbiology: Blood culture on admission grew enterococcus species susceptible to ampicillin Antimicrobials: Ampicillin IV Indwelling: Right IJ Mino Physical examination: Morbidly obese well-developed -[place] woman who is awake in no distress. Head atraumatic normocephalic. Neck is obese. Chest rise symmetrical. Right chest permacath present. Breath sounds clear, diminished bases. Heart: S1-S2. Abdomen obese, soft. Bowel sounds present. Extremities without cyanosis. Assessment: 1. S/p sepsis, present on admission 2. Enterococcal bacteremia, s/p permacath removed 10/12/18 3. Morbid obesity 4. End-stage renal disease, hemodialysis dependent 5. Arrhythmia status post permanent pacemaker Plan: Stable, repeat bld cx neg, no vegetations per 2D ECHO, continue antibiotics for 10 more days, pending permacath Consultation Date/Type/Reason Admit Date/Time Oct 05, 2018 at 11:51 Initial Consult Date Type of Consult id Requesting Provider: LEW RODRÍGUEZ MD Date/Time of Note DATE: 10/17/18 TIME: 14:28 Exam/Review of Systems Exam Vitals Vital Signs Date Temp Pulse Resp B/P (MAP) Pulse Ox O2 O2 Flow FiO2 Time Delivery Rate 10/17/18 98.5 67 16 113/54 98 11:52 (73) 10/17/18 Room Air 04:00 Intake and Output 10/16/18 10/16/18 10/17/18 1515:00 23:00 07:00 IntakeIntake Total 640 ml 170 ml OutputOutput Total 2400 ml BalanceBalance -2400 ml 640 ml 170 ml Results Result Diagram: 10/14/1804 10/14/18 0904 Medications Medication Current Medications Acetaminophen (Tylenol Liquid) 650 mg Q6 PRN GTB MILD PAIN(1-3) OR TEMP>38C; Start 10/05/18 at 14:30 Aspirin (Halfprin) 81 mg DAILY PO Last administered on 10/16/18at 08:23; Admin Dose 81 MG; Start 10/06/18 at 09:00 Bisacodyl (Dulcolax Supp) 10 mg DAILY PRN [place] CONSTIPATION; Start 10/05/18 at 14:30 Famotidine (Pepcid) 20 mg DAILY GTB Last administered on 10/17/18 09:23; Admin Dose 20 MG; Start 10/06/18 at 09:00 Hydroxyzine HCl (Atarax) 25 mg Q8H PRN GTB ITCHING Last administered on 10/16/18 09:51; Admin Dose 25 MG; Start 10/05/18 at 14:30 Lorazepam (Ativan) 0.5 mg Q6H PRN GTB ANXIETY Last administered on 10/15/18 22:18; Admin Dose 0.5 MG; Start 10/05/18 at 14:30 Magnesium Hydroxide (Milk Of Mag) 30 ml DAILY PRN GTB CONSTIPATION; Start 10/05/18 at 14:30 Metoprolol Tartrate (Lopressor) 50 mg BID GTB Last administered on 10/17/18 09:31; Admin Dose 50 MG; Start 10/05/18 at 21:00 Multivit/Ca Carb/ B Cmplx/FA/Prenat (Stephanie-Johnny) 1 tab DAILY GTB Last administered on 10/17/18 09:23; Admin Dose 1 TAB; Start 10/06/18 at 09:00 Polyethylene Glycol (Miralax) 17 gm DAILY GTB Last administered on 10/16/18 08:23; Admin Dose 17 GM; Start 10/06/18 at 09:00 IV Flush (NS 3 ml) 3 ml PER PROTOCOL IV ; Start 10/05/18 at 14:30 Ondansetron HCl (Zofran Inj) 4 mg Q6H PRN IV NAUSEA/VOMITING; Start 10/05/18 at 14:30 Morphine Sulfate (morphine) 2 mg Q4H PRN IV .PAIN 7-10; Start 10/05/18 at 14:30 Epoetin Justen (Epogen (Esrd)) 10,000 units TuThSa@17 SC Last administered on 10/15/18 17:28; Admin Dose 10,000 UNITS; Start 10/06/18 at 17:00 Heparin Sodium (Porcine) (Heparin (1000 Units/ml)) 4,500 unit PRN CATHETER Last administered on 10/16/18 11:48; Admin Dose 2,600 UNIT; Start 10/06/18 at 07:30 Sevelamer Carbonate (Renvela) 1.6 gm WITH MEALS NGT Last administered on 3/4/19at 12:53; Admin Dose 1.6 GM; Start 10/15/18 at 11:50 Ampicillin 50 ml @ 100 mls/hr Q8 IVPB Last administered on 10/17/18at 06:18; Admin Dose 100 MLS/HR; Start 10/15/18 at 22:00 Heparin Sodium (Porcine) (Heparin (5000 Units/1ml)) 5,000 unit BID SC Last administered on 10/16/18at 20:22; Admin Dose 5,000 UNIT; Start 10/16/18 at 21:00 BEST ALANIS NP Oct 17, 2018 14:29
--- NOTE | 2018-10-17 16:18 | CONS ---
Assessment/Plan Assessment/Plan Hospital Course 58 yo F with multiple comorbidities who presents for evaluation of leukocytosis. Noted to have a transient loss of consciousness during HD on 10/14, followed by an increasing ams... for which neurology is consulted. Likely an acute toxic-metabolic on chronic encephalopathy. Seizure was additionally considered.. However, her EEG is without evidence of epileptiform activity.. Stroke is less likely, though not yet definitively excluded... CTH is without obvious acute intracranial pathology.. MRI brain is contraindicated 2/2 pacemaker.. P: Hold Keppra for now Ativan iv prn prolonged seizure of cluster Cont medical management per primary Reorient as necessary Limit sedating medications where possible Will follow clinically Consultation Date/Type/Reason Admit Date/Time Oct 05, 2018 at 11:51 Type of Consult Neurology Reason for Consultation ams Requesting Provider: LEW RODRÍGUEZ MD Date/Time of Note DATE: 10/17/18 TIME: 16:18 24 HR Interval Summary Free Text/Dictation Continues acute care Exam Vital Signs Vitals Vital Signs Date Temp Pulse Resp B/P (MAP) Pulse Ox O2 O2 Flow FiO2 Time Delivery Rate 10/17/18 98.6 70 16 116/57 100 15:35 (76) 10/17/18 Room Air 04:00 Intake and Output 10/16/18 10/16/18 10/17/18 1414:59 22:59 06:59 IntakeIntake Total 640 ml 170 ml OutputOutput Total 2400 ml BalanceBalance -2400 ml 640 ml 170 ml Exam PE: Gen Appearance: No Apparent Distress HEENT: Normocephalic Cardiovascular: Regular rate Abdomen: Soft Extremities: Dry NE: The patient was alert and oriented to self and hospital. Language was normal. Fund of knowledge was limited. Pupils were equal and reactive to light. There was no afferent pupillary defect. Visual mcocy were normal. Funduscopic examination was limited. Extra-ocular movements were full. Ptosis was absent. There was no nystagmus. Facial sensation was normal. Face was symmetric with normal strength. Hearing was intact. Palate movements were normal. Neck strength was normal. There was normal tongue bulk and speed of movement. Tone was normal. Muscle bulk was normal. I did not see fasciculations. Arms and legs were symmetric.. Vibration sensation was reduced distally. Temperature and pinprick sensation was normal. Rapid alternating movements were normal. There was no dysmetria. There was no intention tremor. Gait was deferred due to bedrest. Arm and leg reflexes were symmetric. Etienne's sign was absent. Plantar responses were flexor. REGINA ROSALES NP Oct 17, 2018 16:18 LORENZA GALARZA Oct 17, 2018 16:52
--- NOTE | 2018-10-17 16:37 | CONS ---
Assessment/Plan Assessment/Plan Hospital Course 58 yo F with multiple comorbidities who presents for evaluation of leukocytosis. Noted to have a transient loss of consciousness during HD, followed by an increasing ams... for which neurology is consulted. Most clinically concerning for seizure. Stroke is not yet excluded. P: CTH without contrast for further characterization EEG to evaluate for epileptiform activity Cont medical management per primary Reorient as necessary Limit sedating medications where possible Will follow clinically, to recommend neurologic studies, as necessary Consultation Date/Type/Reason Admit Date/Time Oct 05, 2018 at 11:51 Type of Consult Neurology Reason for Consultation ams Requesting Provider: LEW RODRÍGUEZ MD Date/Time of Note DATE: 10/17/18 TIME: 16:37 Exam Vital Signs Vitals Vital Signs Date Temp Pulse Resp B/P (MAP) Pulse Ox O2 O2 Flow FiO2 Time Delivery Rate 10/17/18 81 16:20 10/17/18 98.6 16 116/57 100 15:35 (76) 10/17/18 Room Air 04:00 Intake and Output 10/16/18 10/16/18 10/17/18 1515:00 23:00 07:00 IntakeIntake Total 640 ml 170 ml OutputOutput Total 2400 ml BalanceBalance -2400 ml 640 ml 170 ml REGINA ROSALES NP Oct 17, 2018 16:37
--- NOTE | 2018-10-17 18:02 | PN ---
Date/Time of Note Date/Time of Note DATE: 10/17/18 TIME: 18:01 Assessment/Plan VTE Prophylaxis Risk score (from Ns)>0 risk: 3 SCD applied (from Ns): Yes Pharmacological prophylaxis: heparin Lines/Catheters IV C[facility]ter Type (from [facility] permacath Urinary Cath still in place: No Assessment/Plan Hospital Course Patient is status post permacath placement today and today pending hemodialysis tomorrow, discussed with RN patient tolerates pured diet. Assessment/Plan - Possible acute toxic-metabolic on chronic encephalopathy. Patient had a transient loss of consciousness on 10/14. Dr. Helton is following in neurology consultation. -Sepsis with enterococcus bacteremia. Permacath removed 10/12/2018. Repeat bld cx neg, no vegetations per 2D ECHO, continue ampicillin IV for 10 more days per ID recs. Dr. Garcia is following in infection disease consultation. -Hemodialysis dependent end-stage renal disease. Continue hemodialysis per nephrology. Dr. Hamm is following in nephrology consultation. -Status post PPM for heart block -Hypertension -GERD -Anemia of chronic disease -Status post dysphagia with PEG -Status post acute respiratory failure -Obesity Further recommendations based on clinical course. Plan of care discussed with Dr. Moore. Result Diagram: 10/17/18 1613 10/17/18 1613 Results 24hrs Laboratory Tests Test 10/17/18 16:13 White Blood Count 5.9 # Red Blood Count 3.39 L Hemoglobin 9.6 L Hematocrit 32.4 L Mean Corpuscular Volume 95.6 Mean Corpuscular Hemoglobin 28.3 L Mean Corpuscular Hemoglobin Concent 29.6 L Red Cell Distribution Width 19.4 H Platelet Count 358 Mean Platelet Volume 9.6 Immature Granulocytes % 0.300 Neutrophils % 48.3 Lymphocytes % 23.9 Monocytes % 6.7 Eosinophils % 20.3 H Basophils % 0.5 Nucleated Red Blood Cells % 0.0 Immature Granulocytes # 0.020 Neutrophils # 2.8 Lymphocytes # 1.4 Monocytes # 0.4 Eosinophils # 1.2 H Basophils # 0.0 Nucleated Red Blood Cells # 0.0 Sodium Level 138 Potassium Level 3.6 Chloride Level 95 L Carbon Dioxide Level 30 Anion Gap 13 Blood Urea Nitrogen 8 Creatinine 5.67 H Est Glomerular Filtrat Rate mL/min 8 L Glucose Level 70 Calcium Level 10.3 H Phosphorus Level 4.8 Magnesium Level 2.0 Exam/Review of Systems Exam Vitals Vital Signs Date Temp Pulse Resp B/P (MAP) Pulse Ox O2 O2 Flow FiO2 Time Delivery Rate 10/17/18 81 16:20 10/17/18 98.6 16 116/57 100 15:35 (76) 10/17/18 Room Air 04:00 Intake and Output 10/16/18 10/16/18 10/17/18 1414:59 22:59 06:59 IntakeIntake Total 640 ml 170 ml OutputOutput Total 2400 ml BalanceBalance -2400 ml 640 ml 170 ml Exam Constitutional: alert, oriented Respiratory: diminished breath sounds Cardiovascular: V paced rhythm, other (Left chest PPM) Gastrointestinal: soft, non-tender, other (G-tube) Musculoskeletal: nl extremities to inspection Extremities: normal pulses Neurological: confused Additional Comments Right IJ permacath Results Results 24hrs Laboratory Tests Test 10/17/18 16:13 White Blood Count 5.9 # Red Blood Count 3.39 L Hemoglobin 9.6 L Hematocrit 32.4 L Mean Corpuscular Volume 95.6 Mean Corpuscular Hemoglobin 28.3 L Mean Corpuscular Hemoglobin Concent 29.6 L Red Cell Distribution Width 19.4 H Platelet Count 358 Mean Platelet Volume 9.6 Immature Granulocytes % 0.300 Neutrophils % 48.3 Lymphocytes % 23.9 Monocytes % 6.7 Eosinophils % 20.3 H Basophils % 0.5 Nucleated Red Blood Cells % 0.0 Immature Granulocytes # 0.020 Neutrophils # 2.8 Lymphocytes # 1.4 Monocytes # 0.4 Eosinophils # 1.2 H Basophils # 0.0 Nucleated Red Blood Cells # 0.0 Sodium Level 138 Potassium Level 3.6 Chloride Level 95 L Carbon Dioxide Level 30 Anion Gap 13 Blood Urea Nitrogen 8 Creatinine 5.67 H Est Glomerular Filtrat Rate mL/min 8 L Glucose Level 70 Calcium Level 10.3 H Phosphorus Level 4.8 Magnesium Level 2.0 Medications Medication Current Medications Acetaminophen (Tylenol Liquid) 650 mg Q6 PRN GTB MILD PAIN(1-3) OR TEMP>38C; Start 10/05/18 at 14:30 Aspirin (Halfprin) 81 mg DAILY PO Last administered on 10/16/18at 08:23; Admin Dose 81 MG; Start 10/06/18 at 09:00 Bisacodyl (Dulcolax Supp) 10 mg DAILY PRN [place] CONSTIPATION; Start 10/05/18 at 14:30 Famotidine (Pepcid) 20 mg DAILY GTB Last administered on 10/17/18 09:23; Admin Dose 20 MG; Start 10/06/18 at 09:00 Hydroxyzine HCl (Atarax) 25 mg Q8H PRN GTB ITCHING Last administered on 10/16/18 09:51; Admin Dose 25 MG; Start 10/05/18 at 14:30 Lorazepam (Ativan) 0.5 mg Q6H PRN GTB ANXIETY Last administered on 10/15/18 22:18; Admin Dose 0.5 MG; Start 10/05/18 at 14:30 Magnesium Hydroxide (Milk Of Mag) 30 ml DAILY PRN GTB CONSTIPATION; Start 10/05/18 at 14:30 Metoprolol Tartrate (Lopressor) 50 mg BID GTB Last administered on 10/17/18 09:31; Admin Dose 50 MG; Start 10/05/18 at 21:00 Multivit/Ca Carb/ B Cmplx/FA/Prenat (Stephanie-Johnny) 1 tab DAILY GTB Last admin istered on 10/17/18 09:23; Admin Dose 1 TAB; Start 10/06/18 at 09:00 Polyethylene Glycol (Miralax) 17 gm DAILY GTB Last administered on 10/16/18 08:23; Admin Dose 17 GM; Start 10/06/18 at 09:00 IV Flush (NS 3 ml) 3 ml PER PROTOCOL IV ; Start 10/05/18 at 14:30 Ondansetron HCl (Zofran Inj) 4 mg Q6H PRN IV NAUSEA/VOMITING; Start 10/05/18 at 14:30 Morphine Sulfate (morphine) 2 mg Q4H PRN IV .PAIN 7-10; Start 10/05/18 at 14:30 Epoetin Justen (Epogen (Esrd)) 10,000 units TuThSa@17 SC Last administered on 10/15/18 17:28; Admin Dose 10,000 UNITS; Start 10/06/18 at 17:00 Heparin Sodium (Porcine) (Heparin (1000 Units/ml)) 4,500 unit PRN CATHETER Last administered on 10/16/18 11:48; Admin Dose 2,600 UNIT; Start 10/06/18 at 07:30 Sevelamer Carbonate (Renvela) 1.6 gm WITH MEALS NGT Last administered on 10/17/18 12:53; Admin Dose 1.6 GM; Start 10/15/18 at 11:50 Ampicillin 50 ml @ 100 mls/hr Q8 IVPB Last administered on 10/17/18 15:27; Admin Dose 100 MLS/HR; Start 10/15/18 at 22:00 Heparin Sodium (Porcine) (Heparin (5000 Units/1ml)) 5,000 unit BID SC Last administered on 10/16/18 20:22; Admin Dose 5,000 UNIT; Start 10/16/18 at 21:00 ANDREW ODOM Oct 17, 2018 18:02
[2018-10-18] VITALS (19 sets, daily range): BP systolic 70–133; BP diastolic 45–68; PULSE 68–114; RESP 18–20
[2018-10-18] MEDS: AMPICILLIN 1 GM/NS (PMX) 50 ML IVPB SCH ×3 (06:04→21:17)
--- NOTE | 2018-10-18 08:50 | PN ---
DATE: 10/18/2018 SUBJECTIVE: The patient had a tunneled Perm-A-Cath placed yesterday. No other events noted. OBJECTIVE: VITAL SIGNS: Blood pressure is 133/60, respirations 18, pulse 95, temperature 97.6. HEENT: Head is normocephalic. NECK: Supple. HEART: Regular rate. LUNGS: Show diminished breath sounds at the base. ABDOMEN: Soft, nontender to palpation without rebound or guarding. EXTREMITIES: Negative for clubbing, cyanosis, no edema. DERMATOLOGIC: No rashes. MUSCULOSKELETAL: No joint effusion. NEUROLOGIC: No change in exam. MEDICATIONS: Reviewed. LABORATORY DATA: Reviewed. ASSESSMENT AND PLAN: 1. End-stage renal disease. The patient is status post Perm-A-Cath placement. We will plan for hem odialysis today. 2. Sepsis secondary to line infection. The patient's Perm-A-Cath was removed. Repeat cultures have been negative. New Perm-A-Cath has been placed. Continue to monitor. 3. Anemia. Monitor hemoglobin and hematocrit levels. Continue Epogen. 4. Mineral bone disorder. Continue to monitor calcium and phosphorus levels. 5. Hypertension. Continue current blood pressure regimen. 6. Obesity. Continue dietary modification. 7. Encephalopathy. Continue to monitor. 8. Arrhythmia. 9. History of pacemaker placement. Continue to monitor. Dictated By: KAYLENE SÁNCHEZ DO NR/NTS Conf#: [id number] DID#: [id number] CC: LEW RODRÍGUEZ MD;*EndCC*
[2018-10-18] MEDS: METOPROLOL 50 MG TAB GTB SCH ×2 (09:00→21:08)
[2018-10-18] MEDS: ASPIRIN (EC) 81 MG TAB PO SCH (09:02)
[2018-10-18] MEDS: SEVELAMER CARBONATE 0.8 GM PKT NGT SCH ×3 (09:02→17:15)
[2018-10-18] MEDS: FAMOTIDINE 20 MG TAB GTB SCH (09:02)
[2018-10-18] MEDS: POLYETHYLENE GLYCOL 17 GM PACKET GTB SCH (09:03)
[2018-10-18] MEDS: MULTIVIT/CA CARB/B CMPLX/FA TAB GTB SCH (09:03)
[2018-10-18] MEDS: HEPARIN 5,000 UNIT/1 ML VIAL SC SCH ×2 (09:05→21:09)
[2018-10-18] MEDS: ALBUMIN HUMAN 25% 100 ML IV SCH ×2 (11:36→12:14)
--- NOTE | 2018-10-18 12:21 | CONS ---
Assessment/Plan Assessment/Plan Hospital Course (Demo Recall) In HD, looks comfortable, no fevers Microbiology: Blood culture on admission grew enterococcus species susceptible to ampicillin Antimicrobials: Ampicillin IV Indwelling: Right IJ pcath Physical examination: Morbidly obese well-developed -[place]ag[place] woman who is awake in no distress. Head atraumatic normocephalic. Neck is obese. Chest rise symmetrical. Right chest permacath present. Breath sounds clear, diminished bases. Heart: S1-S2. Abdomen obese, soft. Bowel sounds present. Extremities without cyanosis. Assessment: 1. S/p sepsis, present on admission 2. Enterococcal bacteremia, s/p permacath removed 10/12/18 3. Morbid obesity 4. End-stage renal disease, hemodialysis dependent 5. Arrhythmia status post permanent pacemaker Plan: Stable, s/p pcath yesterday, repeat bld cx neg, no vegetations per 2D ECHO, continue antibiotics ==> last day 10/27/18 Consultation Date/Type/Reason Admit Date/Time Oct 05, 2018 at 11:51 Initial Consult Date Type of Consult id Requesting Provider: LEW RODRÍGUEZ MD Date/Time of Note DATE: 10/18/18 TIME: 12:19 Exam/Review of Systems Exam Vitals Vital Signs Date Temp Pulse Resp B/P (MAP) Pulse Ox O2 O2 Flow FiO2 Time Delivery Rate 10/18/18 78 18 93/47 (62) 96 Room Air 10:20 10/18/18 98.0 08:00 Intake and Output 10/17/18 10/17/18 10/18/18 1515:00 23:00 07:00 IntakeIntake Total 950 ml 50 ml OutputOutput Total 600 ml BalanceBalance 350 ml 50 ml Results Result Diagram: 10/17/18 1613 10/17/18 1613 Results 24hrs Laboratory Tests Test 10/17/18 16:13 White Blood Count 5.9 # Red Blood Count 3.39 L Hemoglobin 9.6 L Hematocrit 32.4 L Mean Corpuscular Volume 95.6 Mean Corpuscular Hemoglobin 28.3 L Mean Corpuscular Hemoglobin Concent 29.6 L Red Cell Distribution Width 19.4 H Platelet Count 358 Mean Platelet Volume 9.6 Immature Granulocytes % 0.300 Neutrophils % 48.3 Lymphocytes % 23.9 Monocytes % 6.7 Eosinophils % 20.3 H Basophils % 0.5 Nucleated Red Blood Cells % 0.0 Immature Granulocytes # 0.020 Neutrophils # 2.8 Lymphocytes # 1.4 Monocytes # 0.4 Eosinophils # 1.2 H Basophils # 0.0 Nucleated Red Blood Cells # 0.0 Sodium Level 138 Potassium Level 3.6 Chloride Level 95 L Carbon Dioxide Level 30 Anion Gap 13 Blood Urea Nitrogen 8 Creatinine 5.67 H Est Glomerular Filtrat Rate mL/min 8 L Glucose Level 70 Calcium Level 10.3 H Phosphorus Level 4.8 Magnesium Level 2.0 Medications Medication Current Medications Acetaminophen (Tylenol Liquid) 650 mg Q6 PRN GTB MILD PAIN(1-3) OR TEMP>38C; Start 10/05/18 at 14:30 Aspirin (Halfprin) 81 mg DAILY PO Last administered on 10/18/18 09:02; Admin Dose 81 MG; Start 10/06/18 at 09:00 Bisacodyl (Dulcolax Supp) 10 mg DAILY PRN [place] CONSTIPATION; Start 10/05/18 at 14:30 Famotidine (Pepcid) 20 mg DAILY GTB Last administered on 10/18/18 09:02; Admin Dose 20 MG; Start 10/06/18 at 09:00 Hydroxyzine HCl (Atarax) 25 mg Q8H PRN GTB ITCHING Last administered on 10/16/18 09:51; Admin Dose 25 MG; Start 10/05/18 at 14:30 Lorazepam (Ativan) 0.5 mg Q6H PRN GTB ANXIETY Last administered on 10/15/18 22:18; Admin Dose 0.5 MG; Start 10/05/18 at 14:30 Magnesium Hydroxide (Milk Of Mag) 30 ml DAILY PRN GTB CONSTIPATION; Start 10/05/18 at 14:30 Metoprolol Tartrate (Lopressor) 50 mg BID GTB Last administered on 10/17/18 21:16; Admin Dose 50 MG; Start 10/05/18 at 21:00 Multivit/Ca Carb/ B Cmplx/FA/Prenat (Stephanie-Johnny) 1 tab DAILY GTB Last administered on 10/18/18 09:03; Admin Dose 1 TAB; Start 10/06/18 at 09:00 Polyethylene Glycol (Miralax) 17 gm DAILY GTB Last administered on 10/18/18 09:03; Admin Dose 17 GM; Start 10/06/18 at 09:00 IV Flush (NS 3 ml) 3 ml PER PROTOCOL IV ; Start 10/05/18 at 14:30 Ondansetron HCl (Zofran Inj) 4 mg Q6H PRN IV NAUSEA/VOMITING; Start 10/05/18 at 14:30 Morphine Sulfate (morphine) 2 mg Q4H PRN IV .PAIN 7-10; Start 10/05/18 at 14:30 Epoetin Justen (Epogen (Esrd)) 10,000 units TuThSa@17 SC Last administered on 10/15/18 17:28; Admin Dose 10,000 UNITS; Start 10/06/18 at 17:00 Heparin Sodium (Porcine) (Heparin (1000 Units/ml)) 4,500 unit PRN CATHETER Last administered on 10/16/18 11:48; Admin Dose 2,600 UNIT; Start 10/06/18 at 07:30 Sevelamer Carbonate (Renvela) 1.6 gm WITH MEALS NGT Last administered on 10/18/18 09:02; Admin Dose 1.6 GM; Start 10/15/18 at 11:50 Ampicillin 50 ml @ 100 mls/hr Q8 IVPB Last administered on 10/18/18 06:04; Admin Dose 100 MLS/HR; Start 10/15/18 at 22:00 Heparin Sodium (Porcine) (Heparin (5000 Units/1ml)) 5,000 unit BID SC Last administered on 10/18/18 09:05; Admin Dose 5,000 UNIT; Start 10/16/18 at 21:00 Albumin Human 100 ml @ 100 mls/hr Q1H IV Last administered on 10/18/18 12:14; Admin Dose 100 MLS/HR; Start 10/18/18 at 10:45; Stop 10/18/18 at 12:44 BEST ALANIS NP Oct 18, 2018 12:21
[2018-10-18] MEDS: HEPARIN 1000 UNITS/ML 10 ML INJ CATHETER SCH (13:08)
--- NOTE | 2018-10-18 15:23 | CONS ---
Assessment/Plan Assessment/Plan Hospital Course 58 yo F with multiple comorbidities who presents for evaluation of leukocytosis. Noted to have a transient loss of consciousness during HD on 10/14, followed by an increasing ams... for which neurology is consulted. Likely an acute toxic-metabolic on chronic encephalopathy. Seizure was additionally considered.. However, her EEG is without evidence of epileptiform activity.. Stroke is less likely, though not yet definitively excluded... CTH is without obvious acute intracranial pathology.. MRI brain is contraindicated 2/2 pacemaker.. P: Hold Keppra for now Ativan iv prn prolonged seizure of cluster Cont medical management per primary Reorient as necessary Limit sedating medications where possible Will follow clinically Consultation Date/Type/Reason Admit Date/Time Oct 05, 2018 at 11:51 Type of Consult Neurology Reason for Consultation ams Requesting Provider: LEW RODRÍGUEZ MD Date/Time of Note DATE: 10/18/18 TIME: 15:22 24 HR Interval Summary Free Text/Dictation Continues acute care Exam Vital Signs Vitals Vital Signs Date Temp Pulse Resp B/P (MAP) Pulse Ox O2 O2 Flow FiO2 Time Delivery Rate 10/18/18 80 12:50 10/18/18 18 93/47 (62) 96 Room Air 10:20 10/18/18 98.0 08:00 Intake and Output 10/17/18 10/17/18 10/18/18 1515:00 23:00 07:00 IntakeIntake Total 950 ml 50 ml OutputOutput Total 600 ml BalanceBalance 350 ml 50 ml Exam PE: Gen Appearance: No Apparent Distress HEENT: Normocephalic Cardiovascular: Regular rate Abdomen: Soft Extremities: Dry NE: The patient was alert and oriented to self and hospital. Language was normal. Fund of knowledge was limited. Pupils were equal and reactive to light. There was no afferent pupillary defect. Visual mccoy were normal. Funduscopic examination was limited. Extra-ocular movements were full. Ptosis was absent. There was no nystagmus. Facial sensation was normal. Face was symmetric with normal strength. Hearing was intact. Palate movements were normal. Neck strength was normal. There was normal tongue bulk and speed of movement. Tone was normal. Muscle bulk was normal. I did not see fasciculations. Arms and legs were symmetric.. Vibration sensation was reduced distally. Temperature and pinprick sensation was normal. Rapid alternating movements were normal. There was no dysmetria. There was no intention tremor. Gait was deferred due to bedrest. Arm and leg reflexes were symmetric. Etienne's sign was absent. Plantar responses were flexor. REGINA ROSALES NP Oct 18, 2018 15:23 LORENZA GALARZA Oct 18, 2018 15:57
[2018-10-18] MEDS: EPOETIN 10000 UNITS/1 ML INJ (ESRD) SC SCH (17:17)
--- NOTE | 2018-10-18 19:06 | PN ---
Date/Time of Note Date/Time of Note DATE: 10/18/18 TIME: 18:57 Assessment/Plan VTE Prophylaxis Risk score (from Ns)>0 risk: 6 SCD applied (from Ns): Yes Pharmacological prophylaxis: heparin Lines/Catheters IV Catheter Type (from Nrs): Saline Lock Urinary Cath still in place: No Assessment/Plan Hospital Course Patient had hemodialysis today via new permacath, tolerated it well, patient with intermittent confusion, however, remains hemodynamically stable, patient needs antibiotics for 9 more days for treatment of bacteremia, DC planning. Assessment/Plan -Possible acute toxic-metabolic on chronic encephalopathy. Patient had a transient loss of consciousness on 10/14. Dr. Helton is following in neurology consultation. -Sepsis with enterococcus bacteremia. Permacath removed 10/12/2018. Repeat bld cx neg, no vegetations per 2D ECHO, continue ampicillin IV for 10 more days per ID recs. Dr. Garcia is following in infection disease consultation. -Hemodialysis dependent end-stage renal disease. Continue hemodialysis per nephrology. Dr. Hamm is following in nephrology consultation. -Status post PPM for heart block -Hypertension -GERD -Anemia of chronic disease -Status post dysphagia with PEG -Status post acute respiratory failure -Obesity Further recommendations based on clinical course. Plan of care discussed with Dr. Moore. Result Diagram: 10/17/18 1613 10/17/18 1613 Exam/Review of Systems Exam Vitals Vital Signs Date Temp Pulse Resp B/P (MAP) Pulse Ox O2 O2 Flow FiO2 Time Delivery Rate 10/18/18 70 18 115/65 98 Nasal 2.0 14:00 (82) Cannula 10/18/18 98.1 14:00 Intake and Output 10/17/18 10/17/18 10/18/18 1515:00 23:00 07:00 IntakeIntake Total 950 ml 50 ml OutputOutput Total 600 ml BalanceBalance 350 ml 50 ml Exam Constitutional: alert, oriented Respiratory: diminished breath sounds Cardiovascular: nl pulse, other (Left chest PPM) Gastrointestinal: soft, non-tender, other (G-tube) Musculoskeletal: nl extremities to inspection Extremities: normal pulses Neurological: confused Additional Comments Right IJ permacath Medications Medication Current Medications Acetaminophen (Tylenol Liquid) 650 mg Q6 PRN GTB MILD PAIN(1-3) OR TEMP>38C; Start 10/05/18 at 14:30 Aspirin (Halfprin) 81 mg DAILY PO Last administered on 10/18/18 09:02; Admin Dose 81 MG; Start 10/06/18 at 09:00 Bisacodyl (Dulcolax Supp) 10 mg DAILY PRN [place] CONSTIPATION; Start 10/05/18 at 14:30 Famotidine (Pepcid) 20 mg DAILY GTB Last administered on 10/18/18 09:02; Admin Dose 20 MG; Start 10/06/18 at 09:00 Hydroxyzine HCl (Atarax) 25 mg Q8H PRN GTB ITCHING Last administered on 10/16/18 09:51; Admin Dose 25 MG; Start 10/05/18 at 14:30 Lorazepam (Ativan) 0.5 mg Q6H PRN GTB ANXIETY Last administered on 10/15/18 22:18; Admin Dose 0.5 MG; Start 10/05/18 at 14:30 Magnesium Hydroxide (Milk Of Mag) 30 ml DAILY PRN GTB CONSTIPATION; Start 10/05/18 at 14:30 Metoprolol Tartrate (Lopressor) 50 mg BID GTB Last administered on 10/17/18 21:16; Admin Dose 50 MG; Start 10/05/18 at 21:00 Multivit/Ca Carb/ B Cmplx/FA/Prenat (Stephanie-Johnny) 1 tab DAILY GTB Last administered on 10/18/18 09:03; Admin Dose 1 TAB; Start 10/06/18 at 09:00 Polyethylene Glycol (Miralax) 17 gm DAILY GTB Last administered on 10/18/18 09:03; Admin Dose 17 GM; Start 10/06/18 at 09:00 IV Flush (NS 3 ml) 3 ml PER PROTOCOL IV ; Start 10/05/18 at 14:30 Ondansetron HCl (Zofran Inj) 4 mg Q6H PRN IV NAUSEA/VOMITING; Start 10/05/18 at 14:30 Morphine Sulfate (morphine) 2 mg Q4H PRN IV .PAIN 7-10; Start 10/05/18 at 14:30 Epoetin Justen (Epogen (Esrd)) 10,000 units TuThSa@17 SC Last administered on 10/18/18 17:17; Admin Dose 10,000 UNITS; Start 10/06/18 at 17:00 Heparin Sodium (Porcine) (Heparin (1000 Units/ml)) 4,500 unit PRN CATHETER Last administered on 10/18/18 13:08; Admin Dose 4,500 UNIT; Start 10/06/18 at 07:30 Sevelamer Carbonate (Renvela) 1.6 gm WITH MEALS NGT Last administered on 10/18/18 17:15; Admin Dose 1.6 GM; Start 10/15/18 at 11:50 Ampicillin 50 ml @ 100 mls/hr Q8 IVPB Last administered on 10/18/18 13:00; Admin Dose 100 MLS/HR; Start 10/15/18 at 22:00 Heparin Sodium (Porcine) (Heparin (5000 Units/1ml)) 5,000 unit BID SC Last ad ministered on 10/18/18 09:05; Admin Dose 5,000 UNIT; Start 10/16/18 at 21:00 ANDREW ODOM Oct 18, 2018 19:06
[2018-10-19 01:39] VITALS: BP 118/60; PULSE 94; RESP 20
[2018-10-19] MEDS: AMPICILLIN 1 GM/NS (PMX) 50 ML IVPB SCH ×2 (06:00→16:52)
[2018-10-19 07:28] VITALS: BP 120/63; PULSE 92; RESP 16
--- NOTE | 2018-10-19 08:42 | PN ---
DATE: 10/19/2018 SUBJECTIVE: The patient is stable, no events overnight. OBJECTIVE: VITAL SIGNS: Blood pressure is 120/63, pulse 92, respirations 16, temperature 97.8. HEENT: Head is normocephalic. NECK: Supple. HEART: Regular rate. LUNGS: Show diminished breath sounds at the base. ABDOMEN: Soft, nontender to palpation. No rebound or guarding. EXTREMITIES: Negative for clubbing, cyanosis, no edema. DERMATOLOGIC: No rashes. MUSCULOSKELETAL: No joint effusion. NEUROLOGIC: No change in exam. MEDICATIONS: Reviewed. LABORATORY DATA: Reviewed. ASSESSMENT AND PLAN: 1. End-stage renal disease. The patient is scheduled for hemodialysis tomorrow. 2. Sepsis secondary to line infection. The patient's Perm-A-Cath has been removed. Repeat cultures negative. New Perm-A-Cath is in place. Continue to monitor. 3. Anemia. Continue to monitor hemoglobin and hematocrit levels. Continue Epogen. 4. Mineral bone disorder, monitor calcium and phosphorus levels. 5. Hypertension. Continue current blood pressure regimen. 6. Encephalopathy, chronic. Continue to monitor. 7. History of pacemaker placement. 8. Obesity. Continue dietary modification. Dictated By: KAYLENE JOSUE/NTS Conf#: [id number] DID#: [id number] CC: LEW RODRÍGUEZ MD;*EndCC*
[2018-10-19] MEDS: SEVELAMER CARBONATE 0.8 GM PKT NGT SCH ×3 (09:49→17:20)
[2018-10-19] MEDS: POLYETHYLENE GLYCOL 17 GM PACKET GTB SCH (09:49)
[2018-10-19] MEDS: HEPARIN 5,000 UNIT/1 ML VIAL SC SCH ×2 (09:49→20:19)
[2018-10-19] MEDS: MULTIVIT/CA CARB/B CMPLX/FA TAB GTB SCH (09:49)
[2018-10-19] MEDS: ASPIRIN (EC) 81 MG TAB PO SCH (09:50)
[2018-10-19] MEDS: FAMOTIDINE 20 MG TAB GTB SCH (09:50)
[2018-10-19] MEDS: METOPROLOL 50 MG TAB GTB SCH ×2 (09:50→20:17)
--- NOTE | 2018-10-19 11:30 | CONS ---
Assessment/Plan Assessment/Plan Hospital Course (Demo Recall) All noted, no events, looks comfortable, no fevers Microbiology: Blood culture on admission grew enterococcus species susceptible to ampicillin Antimicrobials: Ampicillin IV Indwelling: Right IJ pcath Physical examination: Morbidly obese well-developed -French woman who is awake in no distress. Head atraumatic normocephalic. Neck is obese. Chest rise symmetrical. Right chest permacath present. Breath sounds clear, diminished bases. Heart: S1-S2. Abdomen obese, soft. Bowel sounds present. Extremities without cyanosis. Assessment: 1. S/p sepsis, present on admission 2. Enterococcal bacteremia, s/p permacath removed 10/12/18 3. Morbid obesity 4. End-stage renal disease, hemodialysis dependent 5. Arrhythmia status post permanent pacemaker Plan: Stable, repeat bld cx neg, no vegetations per 2D ECHO, continue antibiotics ==> last day 10/27/18, may change to IV Vanco post HD if Ampicillin IV is difficult to arrange Consultation Date/Type/Reason Admit Date/Time Oct 05, 2018 at 11:51 Initial Consult Date Type of Consult id Requesting Provider: LEW RODRÍGUEZ MD Date/Time of Note DATE: 10/19/18 TIME: 11:29 Exam/Review of Systems Exam Vitals Vital Signs Date Temp Pulse Resp B/P (MAP) Pulse Ox O2 O2 Flow FiO2 Time Delivery Rate 10/19/18 97.8 92 16 120/63 95 Room Air 07:28 (82) 10/18/18 2.0 14:00 Intake and Output 10/18/18 10/18/18 10/19/18 1515:00 23:00 07:00 IntakeIntake Total 490 ml 340 ml 120 ml OutputOutput Total 1500 ml BalanceBalance -1010 ml 340 ml 120 ml Results Result Diagram: 10/17/18 1613 10/17/18 1613 Medications Medication Current Medications Acetaminophen (Tylenol Liquid) 650 mg Q6 PRN GTB MILD PAIN(1-3) OR TEMP>38C; Start 10/05/18 at 14:30 Aspirin (Halfprin) 81 mg DAILY PO Last administered on 10/19/18at 09:50; Admin Dose 81 MG; Start 10/06/18 at 09:00 Bisacodyl (Dulcolax Supp) 10 mg DAILY PRN [place] CONSTIPATION; Start 10/05/18 at 14:30 Famotidine (Pepcid) 20 mg DAILY GTB Last administered on 10/19/18 09:50; Admin Dose 20 MG; Start 10/06/18 at 09:00 Hydroxyzine HCl (Atarax) 25 mg Q8H PRN GTB ITCHING Last administered on 10/16/18 09:51; Admin Dose 25 MG; Start 10/05/18 at 14:30 Lorazepam (Ativan) 0.5 mg Q6H PRN GTB ANXIETY Last administered on 10/15/18 22:18; Admin Dose 0.5 MG; Start 10/05/18 at 14:30 Magnesium Hydroxide (Milk Of Mag) 30 ml DAILY PRN GTB CONSTIPATION; Start 10/05/18 at 14:30 Metoprolol Tartrate (Lopressor) 50 mg BID GTB Last administered on 10/19/18 09:50; Admin Dose 50 MG; Start 10/05/18 at 21:00 Multivit/Ca Carb/ B Cmplx/FA/Prenat (Stephanie-Johnny) 1 tab DAILY GTB Last administered on 10/19/18 09:49; Admin Dose 1 TAB; Start 10/06/18 at 09:00 Polyethylene Glycol (Miralax) 17 gm DAILY GTB Last administered on 10/19/18 09:49; Admin Dose 17 GM; Start 10/06/18 at 09:00 IV Flush (NS 3 ml) 3 ml PER PROTOCOL IV ; Start 10/05/18 at 14:30 Ondansetron HCl (Zofran Inj) 4 mg Q6H PRN IV NAUSEA/VOMITING; Start 10/05/18 at 14:30 Morphine Sulfate (morphine) 2 mg Q4H PRN IV .PAIN 7-10; Start 10/05/18 at 14:30 Epoetin Justen (Epogen (Esrd)) 10,000 units TuThSa@17 SC Last administered on 10/18/18 17:17; Admin Dose 10,000 UNITS; Start 10/06/18 at 17:00 Heparin Sodium (Porcine) (Heparin (1000 Units/ml)) 4,500 unit PRN CATHETER Last administered on 10/18/18 13:08; Admin Dose 4,500 UNIT; Start 10/06/18 at 07:30 Sevelamer Carbonate (Renvela) 1.6 gm WITH MEALS NGT Last administered on 10/19/18 09:49; Admin Dose 1.6 GM; Start 10/15/18 at 11:50 Ampicillin 50 ml @ 100 mls/hr Q8 IVPB Last administered on 10/18/18 21:17; Admin Dose 100 MLS/HR; Start 10/15/18 at 22:00 Heparin Sodium (Porcine) (Heparin (5000 Units/1ml)) 5,000 unit BID SC Last administered on 10/19/18 09:49; Admin Dose 5,000 UNIT; Start 10/16/18 at 21:00 BEST ALANIS NP Oct 19, 2018 11:30
[2018-10-19 15:05] VITALS: BP 124/60; PULSE 80; RESP 16
--- NOTE | 2018-10-19 15:58 | PN ---
Date/Time of Note Date/Time of Note DATE: 10/19/18 TIME: 15:50 Assessment/Plan VTE Prophylaxis Risk score (from Ns)>0 risk: 4 SCD applied (from Ns): Yes Pharmacological prophylaxis: heparin Lines/Catheters IV Catheter Type (from Nrs): Saline Lock Urinary Cath still in place: No Assessment/Plan Hospital Course Patient is awake alert, pending midline placement for continuation of ampicillin for 8 more days for treatment of bacteremia, DC planning. Assessment/Plan -Possible acute toxic-metabolic on chronic encephalopathy. Patient had a transient loss of consciousness on 10/14. Dr. Helton is following in neurology consultation. -Sepsis with enterococcus bacteremia. Permacath removed 10/12/2018. Repeat bld cx neg, no vegetations per 2D ECHO, continue ampicillin IV for 9 more days per ID recs. Dr. Garcia is following in infection disease consultation. -Hemodialysis dependent end-stage renal disease. Continue hemodialysis per nephrology. Dr. Hamm is following in nephrology consultation. -Status post permacath placement: Patient may be that she -Status post PPM for heart block -Hypertension -GERD -Anemia of chronic disease -Status post dysphagia with PEG -Status post acute respiratory failure -Obesity Further recommendations based on clinical course. Plan of care discussed with Dr. Moore. Result Diagram: 10/17/18 1613 10/17/18 1613 Exam/Review of Systems Exam Vitals Vital Signs Date Temp Pulse Resp B/P (MAP) Pulse Ox O2 O2 Flow FiO2 Time Delivery Rate 10/19/18 98.7 80 16 124/60 100 Room Air 15:05 (81) 10/18/18 2.0 14:00 Intake and Output 10/18/18 10/18/18 10/19/18 1515:00 23:00 07:00 IntakeIntake Total 490 ml 340 ml 120 ml OutputOutput Total 1500 ml BalanceBalance -1010 ml 340 ml 120 ml Exam Constitutional: alert, oriented Respiratory: diminished breath sounds Cardiovascular: nl pulse, other (Left chest PPM) Gastrointestinal: soft, non-tender, other (G-tube) Musculoskeletal: nl extremities to inspection Extremities: normal pulses Neurological: confused Additional Comments Right IJ permacath Medications Medication Current Medications Acetaminophen (Tylenol Liquid) 650 mg Q6 PRN GTB MILD PAIN(1-3) OR TEMP>38C; Start 10/05/18 at 14:30 Aspirin (Halfprin) 81 mg DAILY PO Last administered on 10/19/18 09:50; Admin Dose 81 MG; Start 10/06/18 at 09:00 Bisacodyl (Dulcolax Supp) 10 mg DAILY PRN [place] CONSTIPATION; Start 10/05/18 at 14:30 Famotidine (Pepcid) 20 mg DAILY GTB Last administered on 10/19/18 09:50; Admin Dose 20 MG; Start 10/06/18 at 09:00 Hydroxyzine HCl (Atarax) 25 mg Q8H PRN GTB ITCHING Last administered on 10/16/18 09:51; Admin Dose 25 MG; Start 10/05/18 at 14:30 Lorazepam (Ativan) 0.5 mg Q6H PRN GTB ANXIETY Last administered on 10/15/18 22:18; Admin Dose 0.5 MG; Start 10/05/18 at 14:30 Magnesium Hydroxide (Milk Of Mag) 30 ml DAILY PRN GTB CONSTIPATION; Start 10/05 at 14:30 Metoprolol Tartrate (Lopressor) 50 mg BID GTB Last administered on 10/19/18 09:50; Admin Dose 50 MG; Start 10/05/18 at 21:00 Multivit/Ca Carb/ B Cmplx/FA/Prenat (Stephanie-Johnny) 1 tab DAILY GTB Last administered on 10/19/18 09:49; Admin Dose 1 TAB; Start 10/06/18 at 09:00 Polyethylene Glycol (Miralax) 17 gm DAILY GTB Last administered on 10/19/18 09:49; Admin Dose 17 GM; Start 10/06/18 at 09:00 IV Flush (NS 3 ml) 3 ml PER PROTOCOL IV ; Start 10/05/18 at 14:30 Ondansetron HCl (Zofran Inj) 4 mg Q6H PRN IV NAUSEA/VOMITING; Start 10/05/18 at 14:30 Morphine Sulfate (morphine) 2 mg Q4H PRN IV .PAIN 7-10; Start 10/05/18 at 14:30 Epoetin Justen (Epogen (Esrd)) 10,000 units TuThSa@17 SC Last administered on 10/18/18 17:17; Admin Dose 10,000 UNITS; Start 10/06/18 at 17:00 Heparin Sodium (Porcine) (Heparin (1000 Units/ml)) 4,500 unit PRN CATHETER Last administered on 10/18/18 13:08; Admin Dose 4,500 UNIT; Start 10/06/18 at 07:30 Sevelamer Carbonate (Renvela) 1.6 gm WITH MEALS NGT Last administered on 10/19/18 13:16; Admin Dose 1.6 GM; Start 10/15/18 at 11:50 Ampicillin 50 ml @ 100 mls/hr Q8 IVPB Last administered on 10/18/18 21:17; Admin Dose 100 MLS/HR; Start 10/15/18 at 22:00 Heparin Sodium (Porcine) (Heparin (5000 Units/1ml)) 5,000 unit BID SC Last administered on 10/19/18 09:49; Admin Dose 5,000 UNIT; Start 10/16/18 at 21:00 ANDREW ODOM Oct 19, 2018 15:58
[2018-10-19 20:00] VITALS: BP 123/52; PULSE 81; RESP 18
== END 2018-10-19 20:50 | DRG 314 ==
LOC: E/R 10:03 → 6WM 11:51 → 2NE 10-10 00:26 → TEL 10-15 00:05 → 5EC 10-18 03:29
PROVIDERS: ADMIT Internal Medicine; ATTEND Internal Medicine
PROC: 5A1D70Z Performance of Urinary Filtration, Intermittent, Less than 6 Hours Per Day (ICD-10-PCS; 2018-10-06)
PROC: 5A1D70Z Performance of Urinary Filtration, Intermittent, Less than 6 Hours Per Day (ICD-10-PCS; 2018-10-07)
PROC: 5A1D70Z Performance of Urinary Filtration, Intermittent, Less than 6 Hours Per Day (ICD-10-PCS; 2018-10-09)
PROC: 05PY33Z Removal of Infusion Device from Upper Vein, Percutaneous Approach (ICD-10-PCS; 2018-10-12)
PROC: 02HV33Z Insertion of Infusion Device into Superior Vena Cava, Percutaneous Approach (ICD-10-PCS; principal; 2018-10-14)
PROC: B54MZZA Ultrasonography of Right Upper Extremity Veins, Guidance (ICD-10-PCS; 2018-10-14)
PROC: B518ZZA Fluoroscopy of Superior Vena Cava, Guidance (ICD-10-PCS; 2018-10-14)
PROC: 02PY33Z Removal of Infusion Device from Great Vessel, Percutaneous Approach (ICD-10-PCS; 2018-10-17)
PROC: 02H633Z Insertion of Infusion Device into Right Atrium, Percutaneous Approach (ICD-10-PCS; 2018-10-17)
PROC: B518ZZA Fluoroscopy of Superior Vena Cava, Guidance (ICD-10-PCS; 2018-10-17)
DX: T80.211A Bloodstream infection due to central venous catheter, initial encounter (principal); N18.6 End stage renal disease; A41.81 Sepsis due to Enterococcus; G92 Toxic encephalopathy; E87.1 Hypo-osmolality and hyponatremia; I12.0 Hypertensive chronic kidney disease with stage 5 chronic kidney disease or end stage renal disease; G93.1 Anoxic brain damage, not elsewhere classified; E66.01 Morbid (severe) obesity due to excess calories; R13.10 Dysphagia, unspecified; K21.9 Gastro-esophageal reflux disease without esophagitis; E83.52 Hypercalcemia; I49.9 Cardiac arrhythmia, unspecified; D63.1 Anemia in chronic kidney disease; R55 Syncope and collapse; F41.9 Anxiety disorder, unspecified; Z99.2 Dependence on renal dialysis; Z68.37 Body mass index [BMI] 37.0-37.9, adult; Z86.73 Personal history of transient ischemic attack (TIA), and cerebral infarction without residual deficits; Z93.1 Gastrostomy status; Z79.82 Long term (current) use of aspirin; Z95.0 Presence of cardiac pacemaker
CPT/HCPCS: 36415; 36556; 36558; 36589; 70450; 71045; 76942; 80048; 80053; 80061; 80202; 82728; 82962; 83540; 83605; 83735; 84100; 84484; 85025; 85610; 85730; 86706; 86850; 86900; 86901; 87040; 87340; 90935; 92526; 92610; 93005; 93306; 95819; 96374; 96375; 97116; 97162; 97530; C1750; C1752; J0290; J0692; J0885; J1644; J2916; J3010; J3370; J7030; J7040; J7050; P9047; Q4081

== ENCOUNTER 2018-12-20 16:23 | Inpatient (IN) | payer MEDICARE, OTHER ==
[~2018-12-20] VITALS: Ht 162.6 cm; Wt 94.6 kg
[~2018-12-20 16:23] MED LIST changes: -HEPARIN 1000 UNITS/ML 10 ML INJ ONE; -LIDOCAINE 1% (MDV) 20 ML INJ ONE
--- NOTE | 2018-12-20 16:36 | ERD ---
ER Documentation Chief Complaint Chief Complaint Clotted permacatheter HPI The patient is a 58-year-old female, presenting to the ER because of clotted permacatheter. She was unable to have hemodialysis today. She normally has dialysis on Wednesday//Wednesday. She denies any symptoms. Past medical history: Hypertension, history of CVA, chronic kidney disease on hemodialysis, anemia, GERD, chronic encephalopathy, dysphagia, anxiety past surgical history: G-tube, pacemaker Past surgical history: G-tube, pacemaker, permacatheter on the left chest ROS All systems reviewed and are negative except as per history of present illness. Medications Home Meds Reported Medications Acetaminophen* (Tylenol*) 325 Mg Tablet, 650 MG PO Q6H PRN for MILD PAIN LEVEL 1-3, TAB AND FEVER 12/20/18 Sevelamer Hcl* (Renagel*) 800 Mg Tablet, 1600 MG PO WITH MEALS, TAB 12/20/18 Multivit/Ca Carb/B Cmplx/Fa* (Stephanie-Johnny*) 1 Tab Tab, 1 TAB PO DAILY, TAB 12/20/18 Protein Supplement (Promod) 946 Ml Liquid, 30 ML PO TID 12/20/18 Polyethylene Glycol* (Miralax*) 17 Gm Powd.pack, 17 GM PO DAILY, #30 PACKET 12/20/18 Metoprolol Tartrate* (Lopressor*) 50 Mg Tab, 50 MG PO BID, #60 TAB HOLD IF SBP<110 OR HR<60 12/20/18 Magnesium Hydroxide* (Milk Of Magnesia*) 400 Mg/5 Ml Oral.susp, 30 ML PO Q24H for CONSTIPATION, ML 12/20/18 Hydroxyzine Hcl* (Hydroxyzine Hcl*) 25 Mg Tablet, 25 MG PO Q8H PRN for ITCHING, #30 TAB 12/20/18 Heparin Sodium,Porcine/Pf (HEPARIN SOD 5,000 UNIT/ 0.5 ML) 5,000 Unit/0.5 Ml Vial, 5000 UNIT IJ Q12H, VIAL 12/20/18 Famotidine* (Famotidine*) 20 Mg Tablet, 20 MG PO DAILY, #30 TAB 12/20/18 Bisacodyl (Dulcolax) 10 Mg Supp.rect, 10 MG RC Q24H, SUPP.RECT 12/20/18 Aspirin* (Aspirin* Chew) 81 Mg Tab.chew, 81 MG PO DAILY, TAB.CHEW 12/20/18 Ammonium Lactate* (Lac-Hydrin* 12% (225gm)) 1 Applic Lotion, 1 APPLIC TOP DAILY, BOTTLE 12/20/18 Discontinued Reported Medications Bisacodyl (Dulcolax) 10 Mg Supp.rect, 10 MG RC DAILY PRN for CONSTIPATION, SUPP.RECT 10/05/18 Na Phos,M-B/Na Phos,Di-Ba (ENEMA TEKOG-QN-BVD) 133 Ml Enema, 133 ML RC EVERY 72 HOURS PRN for CONSTIPATION, ENEMA 10/05/18 Polyethylene Glycol* (Miralax*) 17 Gm Powd.pack, 17 GM GTB DAILY, #30 PACKET 10/05/18 Epoetin doretha* (Epogen*) 3,000 Unit/1 Ml Vial, [address] UNIT SC MONWEDFRI, VIAL 10/05/18 Famotidine* (Famotidine*) 20 Mg Tablet, 20 MG GTB DAILY, #30 TAB 10/05/18 Hydroxyzine Hcl* (Hydroxyzine Hcl*) 25 Mg Tablet, 25 MG GTB Q8H PRN for ITCHING, #30 TAB 10/05/18 Ipratropium-Albuterol (Ipratropium-Albuterol) 0.5-3 Mg/3 Ml Ampul.neb, 3 ML INHALATION Q6 PRN for WHEEZING AND SOB, #30 VIAL 10/05/18 Lansoprazole* (Lansoprazole*) 30 Mg Capsule.dr, 30 MG GTB DAILY, CAP 10/05/18 Lisinopril* (Lisinopril*) 30 Mg Tablet, 30 MG GTB DAILY, #30 TAB HOLD IF SBP <110 OR HR <60 10/05/18 Lorazepam* (Lorazepam*) 0.5 Mg Tablet, 0.5 MG GTB Q6 PRN for ANXIETY, TAB 10/05/18 Metoprolol Tartrate* (Lopressor*) 50 Mg Tab, 50 MG GTB BID, #60 TAB HOLD IF SBP <110 OR HR <60 10/05/18 Nystatin-Triamcinolone* (Nystatin-Triamcinolone* Cream) 15 Gm Cream.gm., 1 APPLIC TOP BID, #1 TUB 10/05/18 Protein Supplement (Promod) 946 Ml Liquid, 30 ML GTB BID 10/05/18 Multivit/Ca Carb/B Cmplx/Fa* (Stephanie-Johnny*) 1 Tab Tab, 1 TAB GTB DAILY, TAB 10/05/18 Magnesium Hydroxide* (Milk Of Magnesia*) 400 Mg/5 Ml Oral.susp, 30 ML GTB DAILY PRN for CONSTIPATION, ML 10/05/18 Aspirin (Low Dose Aspirin) 81 Mg Tablet.dr, 81 MG GTB DAILY, #30 TAB 10/05/18 Acetaminophen* (Acetaminophen* Susp) 325 Mg/10.15 Ml Solution, 650 MG GTB Q6 PRN for PAIN OR TEMP ABOVE 38C, ML 10/05/18 Allergies Allergies: Coded Allergies: No Known Allergy (Unverified , 12/20/18) PMhx/Soc History of Surgery: Yes Anesthesia Reaction: No Hx Neurological Disorder: Yes Hx Respiratory Disorders: Yes Hx Cardiac Disorders: Yes Hx Psychiatric Problems: Yes Hx Alcohol Use: No Hx Substance Use: No Hx Tobacco Use: No Physical Exam Vitals Vital Signs Date Temp Pulse Resp B/P (MAP) Pulse Ox O2 O2 Flow FiO2 Time Delivery Rate 12/20/18 97.7 63 14 148/91 100 Room Air 16:45 (110) 12/20/18 97.7 71 22 148/91 100 16:35 (110) Physical Exam Const: No acute distress. Head: Atraumatic. Eyes: Normal Conjunctiva. ENT: Normal External Ears, Nose and Mouth. Neck: Full range of motion. No meningismus. Resp: Clear to auscultation bilaterally. Cardio: Regular rate and rhythm. Abd: Soft, non distended, normal bowel sounds, non tender. Positive G-tube Skin: No petechiae or rashes. Back: No midline or flank tenderness. Ext: No cyanosis, or edema. Neur: Awake and alert. No focal deficit Psych: Normal Mood and Affect. Result Diagram: 12/20/18 1650 12/20/18 1650 Results 24 hrs Laboratory Tests Test 12/20/18 16:50 White Blood Count 8.1 10^3/ul Red Blood Count 3.03 10^6/ul Hemoglobin 8.2 g/dl Hematocrit 27.6 % Mean Corpuscular Volume 91.1 fl Mean Corpuscular Hemoglobin 27.1 pg Mean Corpuscular Hemoglobin Concent 29.7 g/dl Red Cell Distribution Width 16.9 % Platelet Count 114 10^3/UL Mean Platelet Volume 10.9 fl Immature Granulocytes % 0.200 % Neutrophils % 52.1 % Lymphocytes % 25.4 % Monocytes % 7.4 % Eosinophils % 14.0 % Basophils % 0.9 % Nucleated Red Blood Cells % 0.0 /100WBC Immature Granulocytes # 0.020 10^3/ul Neutrophils # 4.2 10^3/ul Lymphocytes # 2.1 10^3/ul Monocytes # 0.6 10^3/ul Eosinophils # 1.1 10^3/ul Basophils # 0.1 10^3/ul Nucleated Red Blood Cells # 0.0 10^3/ul Sodium Level 140 mmol/L Potassium Level 4.9 mmol/L Chloride Level 111 mmol/L Carbon Dioxide Level 24 mmol/L Anion Gap 5 Blood Urea Nitrogen 11 mg/dl Creatinine 2.73 mg/dl Est Glomerular Filtrat Rate mL/min 22 mL/min Glucose Level 87 mg/dl Calcium Level 9.9 mg/dl Procedures/[place] [address] Radiology Main Line: [phone] DIAGNOSTIC IMAGING REPORT Patient: JAYJAY TAFOYA : 1960 Age: 58 Sex: F [id number] DOS: 12/20/18 1645 Ordering MD: RJAINDER PAULINO MD Location: E/R Room/Bed: PROCEDURE: XR Chest. CLINICAL INDICATION: chest pain TECHNIQUE: Single AP view of the chest was obtained COMPARISON: 12/01/2018 FINDINGS: The heart is borderline enlarged. Left-sided double lumen catheter tip extends over the left upper mediastinum and this is stable. Left-sided cardiac pacing device is unchanged. The pulmonary vasculature are unremarkable. The aorta is grossly unremarkable. There is no lung consolidation, pleural effusion or pneumothorax. Degenerative changes are seen within the thoracic spine and shoulders. There is no acute osseous abnormality. IMPRESSION: Stable mild cardiomegaly. Left-sided double lumen catheter tip again terminates overlying the left side of the upper mediastinum without definite visible extension into the SVC and appears stable from prior exam. RPTAT: AA .Breanne Rosas MD, Date Time Electronically viewed and signed by .Breanne Rosas MD, MD on 12/20/2018 17:50 .J/ CC: RAJINDER PAULINO MD [phone] EKG: Read by emergency physician Rate/Rhythm: Normal Sinus Rhythm 66 beats/min QRS, ST, T-waves: No ST elevation, no T inversion, PAC, RAD, NSIVB Impression: Abnormal EKG MEDICAL MAKING DECISION: The patient is a 58-year-old female, presenting with clotted dialysis catheter. She does not require emergent dialysis The differential diagnoses considered include but are not limited to cellulitis, malposition catheter, abscess Departure Diagnosis: Primary Impression: Hemodialysis catheter malfunction Additional Impressions: Anemia Thrombocytopenia Condition: Stable Comments I discussed the findings with the patient. I discussed the patient with Dr. Moore at 6 PM, who was made aware of the lab, the treatment, the patient condition. The patient is admitted to [facility] Disclaimer: Inadvertent spelling and grammatical errors are likely due to EHR/dictation software use and do not reflect on the overall quality of patient care. Also, please note that the electronic time recorded on this note does not necessarily reflect the actual time of the patient encounter. RAJINDER PAULINO MD December 20, 2018 16:36
[2018-12-20] MEDS ORDERED: LACHYD12 TOP (17:04)
[2018-12-20] MEDS ORDERED: ASPI-903 PO (17:04)
[2018-12-20] MEDS ORDERED: BISA10SU55 RC (17:05)
[2018-12-20] MEDS ORDERED: HEPA500021 IJ (17:06)
[2018-12-20] MEDS ORDERED: FAMO20TA18 PO (17:06)
[2018-12-20] MEDS ORDERED: HYDR-843 PO (17:07)
[2018-12-20] MEDS ORDERED: MAGN400O19 PO (17:08)
[2018-12-20] MEDS ORDERED: METO-429 PO (17:09)
[2018-12-20] MEDS ORDERED: PROT946L PO (17:09)
[2018-12-20] MEDS ORDERED: POLY17PO6 PO (17:09)
[2018-12-20] MEDS ORDERED: SVL800C PO (17:10)
[2018-12-20] MEDS ORDERED: NEPH PO (17:10)
[2018-12-20] MEDS ORDERED: ACET325T33 PO (17:11)
[2018-12-20 21:00] VITALS: BP 174/80; PULSE 95; RESP 19
[2018-12-20 21:29] VITALS: Ht 162.6 cm; Wt 94.6 kg
[2018-12-20] MEDS ORDERED: hydrOXYzine HCL 25 MG TAB PO PRN (22:30)
[2018-12-20] MEDS ORDERED: ACETAMINOPHEN 325 MG TAB PO PRN (22:30)
[2018-12-20] MEDS ORDERED: hydrALAzine 20 MG INJ IV PRN (22:30)
[2018-12-20] MEDS: SEVELAMER CARBONATE 800 MG TABLET PO SCH (22:56)
[2018-12-21] MEDS: METOPROLOL 50 MG TAB PO SCH ×3 (00:12→21:42)
[2018-12-21] MEDS: MAGNESIUM HYDROXIDE 30ML CUP PO SCH ×2 (00:12→09:00)
--- NOTE | 2018-12-21 00:31 | HP ---
DATE OF ADMISSION: 12/20/2018 CHIEF COMPLAINT: Malfunctioning Perm-A-Cath. HISTORY OF PRESENT ILLNESS: The patient is a female well known to me from previous multiple admissio ns. The patient has a complex medical history including history of a CVA, cardiopulmonary arrest joce ding to respiratory failure requiring tracheostomy and G-tube placement. The patient had prolonged s libra at [facility] and also at [facility] subacute unit. However, the patient h ad a remarkable recovery and got off the vent and also was subsequently decannulated. The patient al so had history of end-stage renal disease requiring hemodialysis. The patient is currently at [facility]. The patient does have a G-tube, although patient is able to take p.o. diet. The patient was sent back from alf facility today after she was noted to hav e a clotted Perm-A-Cath. The patient was subsequently was sent to [facility] ER for further evaluation and management. The patient was seen in the ER and was noted to have stable vital signs. Chemistry revealed potassium of 4.9, BUN was 11, creatinine was 2.7, and calcium was 9.9. The deandre ent did not have any fever or chills. The patient denied any chest pain or shortness of breath. No reported abdominal pain. The patient did not have any leg edema. No reported resting leg pain. The patient is awake, alert, follows simple commands, and moves all extremities. The patient denies any cough or vomiting. No gross focal weakness. REVIEW OF SYSTEMS: Rest of the review of systems is unremarkable. PAST MEDICAL HISTORY: As stated above. 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 PAST SURGICAL HISTORY: The patient is status post tracheostomy, subsequent decannulation, status pos t G-tube placement, status post Perm-A-Cath placement. ALLERGIES: NO KNOWN DRUG ALLERGIES. SOCIAL HISTORY: No smoking or alcohol. FAMILY HISTORY: No pertinent family history. PHYSICAL EXAMINATION: GENERAL: The patient to be awake, alert, follows simple commands. VITAL SIGNS: In the ER at the time of admission, temperature 97.7, pulse 71, respiration 22, blood p ressure 148/91, O2 100% on room air. HEENT: Atraumatic, normocephalic. Conjunctivae normal. Extraocular movements intact. Oropharynx c lear. NECK: Supple. No mass, lymph node or thyromegaly. No carotid bruits. CHEST: Fairly clear. No use of accessory muscles. CARDIOVASCULAR: S1 and S2 normal, no murmur. ABDOMEN: Soft, nondistended, nontender. G-tube in place. EXTREMITIES: No leg edema. NEUROLOGIC: The patient is awake, alert, follows simple command, and moves all extremities. LABORATORY DATA: Labs done in the ER: Sodium 140, potassium 4.9, BUN 11, creatinine 2.7. Glucose 8 7. CBC revealed WBC 8.1, hemoglobin 8.2, platelet 114 down from 358. IMPRESSION: 1. Clotted Perm-A-Cath. I spoke with Dr. Hamm from nephrology standpoint. He will arrange furth er management as per nephrology. 2. Hypertension. We will continue metoprolol and will add hydralazine on p.r.n. basis. 3. History of cerebrovascular accident. Continue aspirin. 4. History of diastolic heart failure. Fluid management is being done by hemodialysis. Currently, patient appears euvolemic. 5. History of cardiac arrest and a history of anoxic brain injury. The patient cognitively has impr negrita. I recently spoke with patient's daughter regarding patient's condition. ____ recommendation f rom Dr. Hamm. Meanwhile, due to mild thrombocytopenia, we will repeat CBC and coagulation profile tomorrow and if thrombocytopenia worsen or persist, then we will obtain hematology consultation [facility] e her platelets were normal back in 10/2018. Dictated By: LEW CARRILLO/GEOVANI Conf#: [id number] DID#: [id number]
[2018-12-21 02:00] VITALS: BP 170/76; PULSE 78; RESP 18
[2018-12-21 05:28] VITALS: BP 148/75; PULSE 72
--- NOTE | 2018-12-21 08:15 | CONS ---
DATE OF ADMISSION: 12/20/2018 DATE OF CONSULTATION: 12/21/2018 TYPE OF CONSULTATION: Nephrology. REASON FOR CONSULTATION: End-stage renal disease. PHYSICIAN REQUESTING CONSULT: Dr. Rodríguez. HISTORY OF PRESENT ILLNESS: This is a 58-year-old female with a past medical history of end-stage re nal disease on dialysis 3 times weekly, access is Perm-A-Cath, history of anemia, history of mineral bone disorder, history of hypertension, history of chronic encephalopathy, dysphagia, who presents to [facility] Emergency Room due to malfunctioning Perm-A-Cath. The patient went to dialysis center yesterday, was found to have a malfunctioning Perm-A-Cath. As a result, she was ys sferred to the [facility] and subsequently admitted. The patient herself denies an y hemoptysis, hematemesis or hematochezia. PAST MEDICAL HISTORY: History of hypertension, history of cerebrovascular accident, history of end-s tage renal disease, history of anemia, gastroesophageal reflux disease, chronic encephalopathy, dysph agia. PAST SURGICAL HISTORY: Status post pacemaker placement, status Perm-A-Cath placement, status post G- tube placement. FAMILY HISTORY: No family history of kidney disease. SOCIAL HISTORY: [facility] at a [facility] facility. MEDICATIONS: The patient's medications have been reviewed. ALLERGIES: NO KNOWN DRUG ALLERGIES. REVIEW OF SYSTEMS: A 14-point review of systems was conducted. Pertinent positives stated in HPI, o therwise negative. PHYSICAL EXAMINATION: VITAL SIGNS: Blood pressure is 148/75, respirations 18, pulse 78, temperature 98.3. HEENT: Head is normocephalic. NECK: Supple. HEART: Regular rate. LUNGS: Show diminished breath sounds at the base. ABDOMEN: Soft, nontender to palpation without rebound or guarding. EXTREMITIES: Negative for clubbing, cyanosis, no edema. DERMATOLOGIC: No rashes. MUSCULOSKELETAL: No joint effusion. NEUROLOGIC: No change in exam. MEDICATIONS: The patient's medications have been reviewed. LABORATORY DATA: Reviewed. ASSESSMENT AND PLAN: This is a 58-year-old female who presents with: 1. End-stage renal disease. The patient may have a malfunctioning Perm-A-Cath. Plan is to attempt hemodialysis today. If dialysis cannot be performed, we will discuss with interventional radiology o f about Perm-A-Cath exchange. We will otherwise continue to monitor closely. 2. Access. The patient's Perm-A-Cath was reportedly malfunctioning. We will attempt hemodialysis t brett. We will consider a catheter placement. If dialysis catheter does not work, we will have inter ventional radiology perform a Perm-A-Cath exchange. We would otherwise continue dialysis access care . 3. Anemia. We will monitor hemoglobin and hematocrit levels, and give Epogen as needed. 4. Mineral bone disorder, monitor calcium and phosphorus levels. Continue phosphate binders. 5. Hypertension. Continue current blood pressure regimen. Continue ultrafiltration with hemodialys is. 6. History of cerebrovascular accident. Continue medical management. 7. History of diastolic heart failure. Continue medical management. Continue ultrafiltration with dialysis. 8. History of cardiac arrest. Continue to monitor. 9. Chronic encephalopathy, secondary to anoxic brain injury. Continue to monitor. Continue medical management. 10. Thrombocytopenia. Continue to monitor. Thank you, Dr. Rodríguez, for this interesting consult. It will be a pleasure to follow the patient w arabella hawk throughout the hospital course. Dictated By: KAYLENE SÁNCHEZ DO NR/NTS Conf#: [id number] DID#: [id number] CC: LEW RODRÍGUEZ MD;*EndCC*
[2018-12-21] MEDS: MULTIVIT/CA CARB/B CMPLX/FA TAB PO SCH (08:55)
[2018-12-21] MEDS: ASPIRIN 81 MG TAB PO SCH (08:55)
[2018-12-21] MEDS: FAMOTIDINE 20 MG TAB PO SCH (08:56)
[2018-12-21] MEDS: AMMONIUM LACTATE 12% 225 GM LOT TOP SCH (08:56)
[2018-12-21] MEDS: POLYETHYLENE GLYCOL 17 GM PACKET PO SCH (09:00)
[2018-12-21] MEDS: SEVELAMER CARBONATE 800 MG TABLET PO SCH ×3 (09:01→17:01)
[2018-12-21 10:02] VITALS: BP 166/77; PULSE 74; RESP 18
[2018-12-21 14:17] VITALS: BP 162/75; PULSE 75; RESP 18
--- NOTE | 2018-12-21 17:24 | PN ---
Date/Time of Note Date/Time of Note DATE: 12/21/18 TIME: 17:19 Assessment/Plan VTE Prophylaxis Risk score (from [facility])>0 risk: 7 SCD applied (from [facility]): Yes Pharmacological prophylaxis: NA/contraindicated Pharm contraindication: thrombocytopenia Lines/Catheters IV [facility]atheter [facility]from [facility] Saline Lock Urinary Cath still in place: No Assessment/Plan Hospital Course Patient is awake alert, no acute distress. Pending hemodialysis today. Assessment/Plan - Permacath malfunction. Possible permacath exchange by radiology. - Hemodialysis dependent end-stage renal disease. Dr. Hamm is following from nephrology standpoint. - Hypertension. Continue metoprolol and hydralazine on p.r.n. basis. - Diastolic congestive heart failure - Status post PPM for heart block - History of cerebrovascular accident. Continue aspirin. - History of cardiac arrest and anoxic brain injury, recovered. - Status post dysphagia with PEG - Anemia of chronic disease Further recommendations based on clinical course. Plan of care discussed with Dr. Moore. Result Diagram: 12/20/18 1650 12/21/18 0703 Results 24hrs Laboratory Tests Test 12/21/18 07:03 Prothrombin Time 12.5 Prothrombin Time Ratio 1.0 INR International Normalized Ratio 0.92 Activated Partial Thromboplast Time 31.6 Sodium Level 141 Potassium Level 4.4 Chloride Level 113 H Carbon Dioxide Level 23 Anion Gap 5 Blood Urea Nitrogen 12 Creatinine 2.55 H Est Glomerular Filtrat Rate mL/min 23 L Glucose Level 83 Calcium Level 10.2 Hepatitis B Surface Antigen NEGATIVE Hepatitis B Surface Antibody NEGATIVE Exam/Review of Systems Exam Vitals Vital Signs Date Temp Pulse Resp B/P (MAP) Pulse Ox O2 O2 Flow FiO2 Time Delivery Rate 12/21/18 98.3 75 18 162/75 98 Room Air 14:17 (104) Constitutional: alert, oriented Respiratory: clear to auscultation Cardiovascular: nl pulses, other (Left chest PPM) Gastrointestinal: soft, non-tender, other (G-tube) Extremities: normal pulses Neurological: nl mental status Additional Comments Left chest Mino catheter Results Results 24hrs Laboratory Tests Test 12/21/18 07:03 Prothrombin Time 12.5 Prothrombin Time Ratio 1.0 INR International Normalized Ratio 0.92 Activated Partial Thromboplast Time 31.6 Sodium Level 141 Potassium Level 4.4 Chloride Level 113 H Carbon Dioxide Level 23 Anion Gap 5 Blood Urea Nitrogen 12 Creatinine 2.55 H Est Glomerular Filtrat Rate mL/min 23 L Glucose Level 83 Calcium Level 10.2 Hepatitis B Surface Antigen NEGATIVE Hepatitis B Surface Antibody NEGATIVE Medications Medication Current Medications Acetaminophen (Tylenol Tab) 650 mg Q6H PRN PO MILD PAIN LEVEL 1-3; Start 12/20/18 at 22:30 Ammonium Lactate (Lac-Hydrin 12% Lotion) 1 applic DAILY TOP Last administered on 12/21/18 08:56; Admin Dose 1 APPLIC; Start 12/21/18 at 09:00 Aspirin (Aspirin) 81 mg DAILY PO Last administered on 12/21/18 08:55; Admin Dose 81 MG; Start 12/21/18 at 09:00 Famotidine (Pepcid) 20 mg DAILY PO Last administered on 12/21/18 08:56; Admin Dose 20 MG; Start 12/21/18 at 09:00 Hydroxyzine HCl (Atarax) 25 mg Q8H PRN PO ITCHING; Start 12/20/18 at 22:30 Magnesium Hydroxide (Milk Of Mag) 30 ml DAILY PO Last administered on 12/21/18at 00:12; Admin Dose 30 ML; Start 12/20/18 at 23:00 Metoprolol Tartrate (Lopressor) 50 mg BID PO Last administered on 12/21/18at 00:12; Admin Dose 50 MG; Start 12/20/18 at 23:00 Multivit/Ca Carb/ B Cmplx/FA/Prenat (Stephanie-Johnny) 1 tab DAILY PO Last administered on 12/21/18at 08:55; Admin Dose 1 TAB; Start 12/21/18 at 09:00 Polyethylene Glycol (Miralax) 17 gm DAILY PO ; Start 12/21/18 at 09:00 Sevelamer Carbonate (Renvela) 1,600 mg WITH MEALS PO Last administered on 12/21/18at 17:01; Admin Dose 1,600 MG; Start 12/20/18 at 22:56 Hydralazine HCl (Apresoline) 10 mg Q6H PRN IV bp>160/95; Start 12/20/18 at 22:30 Epoetin Justen-epbx (RETACRIT(esrd)) 10,000 unit MoWeFr@1700 SC ; Start 12/21/18 at 17:00 Alteplase, Recombinant (Cathflo (Activase)) 2 mg MAY REPEAT X1 PRN CATHETER IF CATHETER REMAINS OCCULUDED; Start 12/21/18 at 14:30 ANDREW ODOM December 21, 2018 17:24
[2018-12-21] MEDS: ALTEPLASE (CATHFLO) 2 MG INJ CATHETER PRN (18:35)
[2018-12-21] MEDS: EPOETIN ALFA-EPBX (ESRD) 10,000 UNIT/ML VIAL SC SCH (19:07)
[2018-12-21 20:20] VITALS: BP 174/83; PULSE 82; RESP 18
[2018-12-22] VITALS (12 sets, daily range): BP systolic 141–187; BP diastolic 57–88; PULSE 62–71; RESP 17–20
--- NOTE | 2018-12-22 08:28 | PN ---
DATE: 12/22/2018 SUBJECTIVE: The patient is stable. The patient attempted hemodialysis yesterday, but there was slug adry blood flow. TPA was placed in a Perm-A-Cath. We will attempt hemodialysis again today. If peyman lysis is unable to be obtained, the patient will require Perm-A-Cath exchange. No other events noted overnight. OBJECTIVE: VITAL SIGNS: Blood pressure is 164/77, respirations 18, pulse 68, temperature 97.7. HEENT: Head is normocephalic. NECK: Supple. HEART: Regular rate. LUNGS: Show diminished breath sounds at the base. ABDOMEN: Soft, nontender to palpation without rebound or guarding. EXTREMITIES: Negative for clubbing, cyanosis, no edema. DERMATOLOGIC: No rashes. MUSCULOSKELETAL: No joint effusion. NEUROLOGIC: No change in exam. MEDICATIONS: Reviewed. LABORATORY DATA: Reviewed. ASSESSMENT AND PLAN: 1. End-stage renal disease. The patient's Perm-A-Cath has sluggish flow. As stated above, TPA was placed. We will attempt dialysis again today. If unable to be dialyzed the patient will require Per m-A-Cath exchange. 2. Access. The patient's cath has noted sluggish flow. The patient will be given TPA. We will fo llow up with hemodialysis today. 3. Anemia. Monitor hemoglobin and hematocrit levels. We will give Epogen as needed. 4. Mineral bone disorder, monitor calcium and phosphorus levels. Continue phosphate binders. 5. Hypertension. Continue current blood pressure regimen. Continue ultrafiltration with dialysis. 6. History of cerebrovascular accident. Continue medical management. 7. History of diastolic heart failure. Continue current treatment plan. 8. History of cardiac arrest. Continue to monitor. 9. Chronic encephalopathy secondary to anoxic brain injury. Continue medical management. 10. Thrombocytopenia. Continue to monitor. Dictated By: KAYLENE SÁNCHEZ DO NR/NTS Conf#: [id number] DID#: [id number] CC: LEW RODRÍGUEZ MD;*EndCC*
[2018-12-22] MEDS: MAGNESIUM HYDROXIDE 30ML CUP PO SCH (08:57)
[2018-12-22] MEDS: POLYETHYLENE GLYCOL 17 GM PACKET PO SCH (08:58)
[2018-12-22] MEDS: FAMOTIDINE 20 MG TAB PO SCH (08:59)
[2018-12-22] MEDS: MULTIVIT/CA CARB/B CMPLX/FA TAB PO SCH (08:59)
[2018-12-22] MEDS: ASPIRIN 81 MG TAB PO SCH (08:59)
[2018-12-22] MEDS: SEVELAMER CARBONATE 800 MG TABLET PO SCH ×3 (08:59→17:35)
[2018-12-22] MEDS ORDERED: HEPARIN 1000 UNITS/ML 10 ML INJ CATHETER ONE (09:30)
[2018-12-22] MEDS: AMMONIUM LACTATE 12% 225 GM LOT TOP SCH (10:29)
[2018-12-22] MEDS: METOPROLOL 50 MG TAB PO SCH ×2 (10:30→21:42)
[2018-12-22] MEDS: NIFEdipine (XL) 30 MG TAB PO SCH (13:38)
[2018-12-22] MEDS ORDERED: HEPARIN 1000 UNITS/ML 10 ML INJ ONE (16:13)
--- NOTE | 2018-12-22 17:10 | PN ---
Date/Time of Note Date/Time of Note DATE: 12/22/18 TIME: 17:09 Assessment/Plan VTE Prophylaxis Risk score ([place] [facility] [place] risk: 4 SCD applied (from [facility] [place]): Yes Pharmacological prophylaxis: NA/contraindicated Pharm contraindication: surgical contra Lines/Catheters IV Catheter Type (from [facility] Saline Lock Urinary Cath still in place: No Assessment/Plan Hospital Course Patient was taken to radiology for permacath exchange. No acute events reported prior to procedure. Assessment/Plan - Permacath malfunction. Possible permacath exchange by radiology. - Hemodialysis dependent end-stage renal disease. Dr. Hamm is following from nephrology standpoint. - Hypertension. Continue metoprolol and hydralazine on p.r.n. basis. - Diastolic congestive heart failure - Status post PPM for heart block - History of cerebrovascular accident. Continue aspirin. - History of cardiac arrest and anoxic brain injury, recovered. - Status post dysphagia with PEG - Anemia of chronic disease Further recommendations based on clinical course. Plan of care discussed with Dr. Moore. Result Diagram: 12/22/18 0608 12/22/18 0607 Results 24hrs Laboratory Tests Test 12/22/18 06:07 12/22/18 06:08 Sodium Level 143 Potassium Level 4.6 Chloride Level 112 H Carbon Dioxide Level 24 Anion Gap 7 Blood Urea Nitrogen 11 Creatinine 2.61 H Est Glomerular Filtrat Rate mL/min 23 L Glucose Level 76 Calcium Level 11.2 H White Blood Count 5.9 # Red Blood Count 3.23 L Hemoglobin 8.6 L Hematocrit 29.5 L Mean Corpuscular Volume 91.3 Mean Corpuscular Hemoglobin 26.6 L Mean Corpuscular Hemoglobin Concent 29.2 L Red Cell Distribution Width 16.8 H Platelet Count 174 # Mean Platelet Volume 10.8 H Immature Granulocytes % 0.200 Neutrophils % 39.4 Lymphocytes % 28.9 Monocytes % 9.4 Eosinophils % 20.7 H Basophils % 1.4 Nucleated Red Blood Cells % 0.0 Immature Granulocytes # 0.010 Neutrophils # 2.3 Lymphocytes # 1.7 Monocytes # 0.6 Eosinophils # 1.2 H Basophils # 0.1 Nucleated Red Blood Cells # 0.0 Exam/Review of Systems Exam Vitals Vital Signs Date Temp Pulse Resp B/P (MAP) Pulse Ox O2 O2 Flow FiO2 Time Delivery Rate 12/22/18 98.8 62 17 141/67 97 Room Air 14:50 (91) Intake and Output 12/21/18 12/21/18 12/22/18 1515:00 23:00 07:00 IntakeIntake Total 240 ml 120 ml 1000 ml OutputOutput Total 1 ml BalanceBalance 239 ml 120 ml 1000 ml Results Results 24hrs Laboratory Tests Test 12/22/18 06:07 12/22/18 06:08 Sodium Level 143 Potassium Level 4.6 Chloride Level 112 H Carbon Dioxide Level 24 Anion Gap 7 Blood Urea Nitrogen 11 Creatinine 2.61 H Est Glomerular Filtrat Rate mL/min 23 L Glucose Level 76 Calcium Level 11.2 H White Blood Count 5.9 # Red Blood Count 3.23 L Hemoglobin 8.6 L Hematocrit 29.5 L Mean Corpuscular Volume 91.3 Mean Corpuscular Hemoglobin 26.6 L Mean Corpuscular Hemoglobin Concent 29.2 L Red Cell Distribution Width 16.8 H Platelet Count 174 # Mean Platelet Volume 10.8 H Immature Granulocytes % 0.200 Neutrophils % 39.4 Lymphocytes % 28.9 Monocytes % 9.4 Eosinophils % 20.7 H Basophils % 1.4 Nucleated Red Blood Cells % 0.0 Immature Granulocytes # 0.010 Neutrophils # 2.3 Lymphocytes # 1.7 Monocytes # 0.6 Eosinophils # 1.2 H Basophils # 0.1 Nucleated Red Blood Cells # 0.0 Medications Medication Current Medications Acetaminophen (Tylenol Tab) 650 mg Q6H PRN PO MILD PAIN LEVEL 1-3; Start 12/20/18 at 22:30 Ammonium Lactate (Lac-Hydrin 12% Lotion) 1 applic DAILY TOP Last administered on 12/22/18at 10:29; Admin Dose 1 APPLIC; Start 12/21/18 at 09:00 Aspirin (Aspirin) 81 mg DAILY PO Last administered on 12/22/18at 08:59; Admin Dose 81 MG; Start 12/21/18 at 09:00 Famotidine (Pepcid) 20 mg DAILY PO Last administered on 12/22/18at 08:59; Admin Dose 20 MG; Start 12/21/18 at 09:00 Hydroxyzine HCl (Atarax) 25 mg Q8H PRN PO ITCHING; Start 12/20/18 at 22:30 Magnesium Hydroxide (Milk Of Mag) 30 ml DAILY PO Last administered on 5/8/19at 00:12; Admin Dose 30 ML; Start 12/20/18 at 23:00 Metoprolol Tartrate (Lopressor) 50 mg BID PO Last administered on 12/22/18 10:30; Admin Dose 50 MG; Start 12/20/18 at 23:00 Multivit/Ca Carb/ B Cmplx/FA/Prenat (Stephanie-Johnny) 1 tab DAILY PO Last administered on 12/22/18 08:59; Admin Dose 1 TAB; Start 12/21/18 at 09:00 Polyethylene Glycol (Miralax) 17 gm DAILY PO ; Start 12/21/18 at 09:00 Sevelamer Carbonate (Renvela) 1,600 mg WITH MEALS PO Last administered on 12/22/18 08:59; Admin Dose 1,600 MG; Start 12/20/18 at 22:56 Hydralazine HCl (Apresoline) 10 mg Q6H PRN IV bp>160/95; Start 12/20/18 at 22:30 Epoetin Justen-epbx (RETACRIT(esrd)) 10,000 unit MoWeFr@1700 SC Last administered on 12/21/18 19:07; Admin Dose 10,000 UNIT; Start 12/21/18 at 17:00 Alteplase, Recombinant (Cathflo (Activase)) 2 mg MAY REPEAT X1 PRN CATHETER IF CATHETER REMAINS OCCULUDED Last administered on 12/21/18 18:35; Admin Dose 2 MG; Start 12/21/18 at 14:30 Nifedipine (Procardia Xl) 30 mg DAILY PO Last administered on 12/22/18 13:38; Admin Dose 30 MG; Start 12/22/18 at 12:00 ANDREW ODOM December 22, 2018 17:10
[2018-12-23] VITALS (19 sets, daily range): BP systolic 127–171; BP diastolic 67–96; PULSE 71–96; RESP 16–20
--- NOTE | 2018-12-23 08:54 | PN ---
DATE: 12/23/2018 SUBJECTIVE: The patient had a Perm-A-Cath exchange yesterday. Plan for hemodialysis this morning. No other events noted. OBJECTIVE: VITAL SIGNS: Blood pressure is 134/96, respirations 20, pulse 73, temperature 98.0. HEENT: Head is normocephalic. NECK: Supple. HEART: Regular rate. LUNGS: Show diminished breath sounds at the base. ABDOMEN: Soft, nontender to palpation without rebound or guarding. EXTREMITIES: Negative for clubbing, cyanosis, no edema. DERMATOLOGIC: No rashes. MUSCULOSKELETAL: No joint effusion. NEUROLOGIC: No change in exam. MEDICATIONS: Have been reviewed. LABORATORY DATA: Has been reviewed. ASSESSMENT AND PLAN: 1. End-stage renal disease. The patient is status post PermCath exchange yesterday. Plan for dialy sis today. 2. Access. The patient is status post Perm-A-Cath exchange. Continue local access care. 3. Anemia. Continue to monitor hemoglobin and hematocrit levels. Continue Epogen. 4. Mineral bone disorder. The patient is hypocalcemic. Will continue dialysis on low calcium bath. Continue phos binders, monitor. 5. Hypertension. Continue current blood pressure regimen. 6. History of cerebrovascular accident. Continue medical management. 7. History of diastolic heart failure. Continue medical management. 8. History of cardiac arrest. 9. 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 Continue to monitor. Dictated By: KAYLENE SÁNCHEZ DO NR/NTS Conf#: [id number] DID#: [id number] CC: LEW RODRÍGUEZ MD;*EndCC*
[2018-12-23] MEDS: METOPROLOL 50 MG TAB PO SCH ×2 (09:00→20:54)
[2018-12-23] MEDS: NIFEdipine (XL) 30 MG TAB PO SCH (09:00)
[2018-12-23] MEDS: MAGNESIUM HYDROXIDE 30ML CUP PO SCH (09:00)
[2018-12-23] MEDS: POLYETHYLENE GLYCOL 17 GM PACKET PO SCH (09:00)
[2018-12-23] MEDS: FAMOTIDINE 20 MG TAB PO SCH (09:07)
[2018-12-23] MEDS: ASPIRIN 81 MG TAB PO SCH (09:07)
--- NOTE | 2018-12-23 09:09 | PN ---
Date/Time of Note Date/Time of Note DATE: 12/23/18 TIME: 09:07 Assessment/Plan VTE Prophylaxis [place] [facility] [place]: 3 SCD applied [place] [facility] [place] Yes SCD contraindicated: other Pharmacological prophylaxis: other Pharm contraindication: other Lines/Catheters [facility] Type (from [facility] Saline Lock Urinary Cath still in place: No Assessment/Plan Assessment/Plan - Permacath malfunction. SP PermCath exchange by radiology yesterday - Hemodialysis dependent end-stage renal disease. - HD today - Dr. Hamm is following from nephrology standpoint. - Hypertension. Continue metoprolol and hydralazine on p.r.n. basis. - Diastolic congestive heart failure - Status post PPM for heart block - History of cerebrovascular accident. Continue aspirin. - History of cardiac arrest and anoxic brain injury, recovered. - Status post dysphagia with PEG - Anemia of chronic disease- Hgb 8,8 Anticipate discharge tomorrow. Further recommendations based on clinical course. Plan of care discussed with Dr. Moore. Result Diagram: 12/23/18 0730 12/23/18 0730 Results 24hrs Laboratory Tests Test 12/23/18 07:30 White Blood Count 6.3 Red Blood Count 3.26 L Hemoglobin 8.8 L Hematocrit 28.9 L Mean Corpuscular Volume 88.7 Mean Corpuscular Hemoglobin 27.0 L Mean Corpuscular Hemoglobin Concent 30.4 L Red Cell Distribution Width 16.7 H Platelet Count 201 Mean Platelet Volume 11.2 H Immature Granulocytes % 0.300 Neutrophils % 53.9 Lymphocytes % 20.3 Monocytes % 10.0 Eosinophils % 14.4 H Basophils % 1.1 Nucleated Red Blood Cells % 0.3 H Immature Granulocytes # 0.020 Neutrophils # 3.4 Lymphocytes # 1.3 Monocytes # 0.6 Eosinophils # 0.9 H Basophils # 0.1 Nucleated Red Blood Cells # 0.0 Sodium Level 142 Potassium Level 4.3 Chloride Level 112 H Carbon Dioxide Level 24 Anion Gap 6 Blood Urea Nitrogen 10 Creatinine 2.67 H Est Glomerular Filtrat Rate mL/min 22 L Glucose Level 92 Calcium Level 11.0 H Subjective 24 Hr Interval Summary Free Text/Dictation SP PermCath exchange by radiology yesterday - HD today Eyes: no complaints ENT: no complaints Respiratory: no complaints Cardiovascular: no complaints Gastrointestinal: no complaints Genitourinary: no complaints Musculoskeletal: no complaints Skin: no complaints Neurologic: no complaints Psychological: nl mood/affect Exam/Review of Systems Exam Vitals Vital Signs Date Temp Pulse Resp B/P (MAP) Pulse Ox O2 O2 Flow FiO2 Time Delivery Rate 12/23/18 98.7 71 18 165/77 99 08:39 (106) 12/22/18 Room Air 20:29 Intake and Output 12/22/18 12/22/18 12/23/18 1515:00 23:00 07:00 IntakeIntake Total 300 ml 350 ml OutputOutput Total 600 ml BalanceBalance -600 ml 300 ml 350 ml Constitutional: alert, oriented, well developed Psych: nl mood/affect Head: normocephalic Eyes: nl lids, nl sclera ENMT: nl external ears & nose Neck: non-tender Respiratory: clear to auscultation Cardiovascular: nl pulses, other (s1s2) Gastrointestinal: soft, non-tender Musculoskeletal: muscle weakness Extremities: normal pulses Neurological: nl speech, other (alert/reponsie ) Skin: nl turgor Lymph: nontender Results Results 24hrs Laboratory Tests Test 12/23/18 07:30 White Blood Count 6.3 Red Blood Count 3.26 L Hemoglobin 8.8 L Hematocrit 28.9 L Mean Corpuscular Volume 88.7 Mean Corpuscular Hemoglobin 27.0 L Mean Corpuscular Hemoglobin Concent 30.4 L Red Cell Distribution Width 16.7 H Platelet Count 201 Mean Platelet Volume 11.2 H Immature Granulocytes % 0.300 Neutrophils % 53.9 Lymphocytes % 20.3 Monocytes % 10.0 Eosinophils % 14.4 H Basophils % 1.1 Nucleated Red Blood Cells % 0.3 H Immature Granulocytes # 0.020 Neutrophils # 3.4 Lymphocytes # 1.3 Monocytes # 0.6 Eosinophils # 0.9 H Basophils # 0.1 Nucleated Red Blood Cells # 0.0 Sodium Level 142 Potassium Level 4.3 Chloride Level 112 H Carbon Dioxide Level 24 Anion Gap 6 Blood Urea Nitrogen 10 Creatinine 2.67 H Est Glomerular Filtrat Rate mL/min 22 L Glucose Level 92 Calcium Level 11.0 H Medications Medication Current Medications Acetaminophen (Tylenol Tab) 650 mg Q6H PRN PO MILD PAIN LEVEL 1-3; Start 12/20/18 at 22:30 Ammonium Lactate (Lac-Hydrin 12% Lotion) 1 applic DAILY TOP Last administered on 12/22/18 10:29; Admin Dose 1 APPLIC; Start 12/21/18 at 09:00 Aspirin (Aspirin) 81 mg DAILY PO Last administered on 12/22/18 08:59; Admin Dose 81 MG; Start 12/21/18 at 09:00 Famotidine (Pepcid) 20 mg DAILY PO Last administered on 12/22/18 08:59; Admin Dose 20 MG; Start 12/21/18 at 09:00 Hydroxyzine HCl (Atarax) 25 mg Q8H PRN PO ITCHING; Start 12/20/18 at 22:30 Magnesium Hydroxide (Milk Of Mag) 30 ml DAILY PO Last administered on 12/21/18 00:12; Admin Dose 30 ML; Start 12/20/18 at 23:00 Metoprolol Tartrate (Lopressor) 50 mg BID PO Last administered on 12/22/18 21:42; Admin Dose 50 MG; Start 12/20/18 at 23:00 Multivit/Ca Carb/ B Cmplx/FA/Prenat (Stephanie-Johnny) 1 tab DAILY PO Last administered on 12/22/18 08:59; Admin Dose 1 TAB; Start 12/21/18 at 09:00 Polyethylene Glycol (Miralax) 17 gm DAILY PO ; Start 12/21/18 at 09:00 Sevelamer Carbonate (Renvela) 1,600 mg WITH MEALS PO Last administered on 12/22/18 08:59; Admin Dose 1,600 MG; Start 12/20/18 at 22:56 Hydralazine HCl (Apresoline) 10 mg Q6H PRN IV bp>160/95 Last administered on 12/22/18 23:07; Admin Dose 10 MG; Start 12/20/18 at 22:30 Epoetin Justen-epbx (RETACRIT(esrd)) 10,000 unit MoWeFr@1700 SC Last administered on 12/21/18 19:07; Admin Dose 10,000 UNIT; Start 12/21/18 at 17:00 Alteplase, Recombinant (Cathflo (Activase)) 2 mg MAY REPEAT X1 PRN CATHETER IF CATHETER REMAINS OCCULUDED Last administered on 12/21/18 18:35; Admin Dose 2 MG; Start 12/21/18 at 14:30 Nifedipine (Procardia Xl) 30 mg DAILY PO Last administered on 12/22/18at 13:38; Admin Dose 30 MG; Start 12/22/18 at 12:00 FREDDY LING December 23, 2018 09:09
[2018-12-23] MEDS: SEVELAMER CARBONATE 800 MG TABLET PO SCH ×3 (09:10→17:12)
[2018-12-23] MEDS: MULTIVIT/CA CARB/B CMPLX/FA TAB PO SCH (09:10)
[2018-12-23] MEDS: AMMONIUM LACTATE 12% 225 GM LOT TOP SCH (09:11)
[2018-12-23] MEDS: HEPARIN 1000 UNITS/ML 10 ML INJ CATHETER SCH (12:59)
[2018-12-23] MEDS: EPOETIN ALFA-EPBX (ESRD) 10,000 UNIT/ML VIAL SC SCH (17:12)
[2018-12-24 02:54] VITALS: BP 126/86; PULSE 72; RESP 20
[2018-12-24 07:49] VITALS: BP 131/60; PULSE 70; RESP 16
[2018-12-24] MEDS: FAMOTIDINE 20 MG TAB PO SCH (08:11)
[2018-12-24] MEDS: MULTIVIT/CA CARB/B CMPLX/FA TAB PO SCH (08:11)
[2018-12-24] MEDS: ASPIRIN 81 MG TAB PO SCH (08:11)
[2018-12-24] MEDS: SEVELAMER CARBONATE 800 MG TABLET PO SCH ×3 (08:11→16:55)
[2018-12-24] MEDS: MAGNESIUM HYDROXIDE 30ML CUP PO SCH (08:12)
[2018-12-24] MEDS: METOPROLOL 50 MG TAB PO SCH ×2 (08:12→21:26)
[2018-12-24] MEDS: NIFEdipine (XL) 30 MG TAB PO SCH (08:12)
[2018-12-24] MEDS: AMMONIUM LACTATE 12% 225 GM LOT TOP SCH (08:13)
[2018-12-24] MEDS: POLYETHYLENE GLYCOL 17 GM PACKET PO SCH (08:13)
--- NOTE | 2018-12-24 12:30 | CONS ---
Assessment/Plan Assessment/Plan Hospital Course (Demo Recall) 1. End-stage renal disease. The patient is status post PermCath exchange. s/p hD today 2. Access. The patient is status post Perm-A-Cath exchange. Continue local access care. 3. Anemia. Continue to monitor hemoglobin and hematocrit levels. Continue Epogen. 4. Mineral bone disorder. The patient is hypocalcemic. Will continue dialysis on low calcium bath. Continue phos binders, monitor. 5. Hypertension. Continue current blood pressure regimen. 6. History of cerebrovascular accident. Continue medical management. 7. History of diastolic heart failure. Continue medical management. 8. History of cardiac arrest. 9. 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 Continue to monitor. Consultation Date/Type/Reason Admit Date/Time December 22, 2018 at 12:26 Initial Consult Date Date/Time of Note DATE: 12/24/18 TIME: 12:30 24 HR Interval Summary Free Text/Dictation s/p hd yesterday and today gen nad cv rrr pulm ctab abd soft, nd, nt +bs ext: no edema Exam/Review of Systems Exam Vitals Vital Signs Date Temp Pulse Resp B/P (MAP) Pulse Ox O2 O2 Flow FiO2 Time Delivery Rate 12/24/18 98.2 70 16 131/60 100 07:49 (83) 12/23/18 Room Air 20:56 Intake and Output 12/23/18 12/23/18 12/24/18 1515:00 23:00 07:00 IntakeIntake Total 360 ml 170 ml OutputOutput Total 2400 ml BalanceBalance -2040 ml 170 ml Results Result Diagram: 12/23/1872912/23/18729 Medications Medication Current Medications Acetaminophen (Tylenol Tab) 650 mg Q6H PRN PO MILD PAIN LEVEL 1-3; Start 12/20/18 at 22:30 Ammonium Lactate (Lac-Hydrin 12% Lotion) 1 applic DAILY TOP Last administered on 12/24/18at 08:13; Admin Dose 1 APPLIC; Start 12/21/18 at 09:00 Aspirin (Aspirin) 81 mg DAILY PO Last administered on 12/24/18at 08:11; Admin Dose 81 MG; Start 12/21/18 at 09:00 Famotidine (Pepcid) 20 mg DAILY PO Last administered on 12/24/18at 08:11; Admin Dose 20 MG; Start 12/21/18 at 09:00 Hydroxyzine HCl (Atarax) 25 mg Q8H PRN PO ITCHING; Start 12/20/18 at 22:30 Magnesium Hydroxide (Milk Of Mag) 30 ml DAILY PO Last administered on 12/21/18 00:12; Admin Dose 30 ML; Start 12/20/18 at 23:00 Metoprolol Tartrate (Lopressor) 50 mg BID PO Last administered on 12/24/18 08:12; Admin Dose 50 MG; Start 12/20/18 at 23:00 Multivit/Ca Carb/ B Cmplx/FA/Prenat (Stephanie-Johnny) 1 tab DAILY PO Last administered on 12/24/18 08:11; Admin Dose 1 TAB; Start 12/21/18 at 09:00 Polyethylene Glycol (Miralax) 17 gm DAILY PO Last administered on 12/24/18 08:13; Admin Dose 17 GM; Start 12/21/18 at 09:00 Sevelamer Carbonate (Renvela) 1,600 mg WITH MEALS PO Last administered on 12/24/18 11:46; Admin Dose 1,600 MG; Start 12/20/18 at 22:56 Hydralazine HCl (Apresoline) 10 mg Q6H PRN IV bp>160/95 Last administered on 12/22/18 23:07; Admin Dose 10 MG; Start 12/20/18 at 22:30 Epoetin Justen-epbx (RETACRIT(esrd)) 10,000 unit MoWeFr@1700 SC Last administered on 12/23/18 17:12; Admin Dose 10,000 UNIT; Start 12/21/18 at 17:00 Alteplase, Recombinant (Cathflo (Activase)) 2 mg MAY REPEAT X1 PRN CATHETER IF CATHETER REMAINS OCCULUDED Last administered on 12/21/18 18:35; Admin Dose 2 MG; Start 12/21/18 at 14:30 Nifedipine (Procardia Xl) 30 mg DAILY PO Last administered on 12/24/18 08:12; Admin Dose 30 MG; Start 12/22/18 at 12:00 Heparin Sodium (Porcine) (Heparin (1000 Units/ml)) 4,500 unit AFTER DIALYSIS CATHETER Last administered on 12/23/18 12:59; Admin Dose 4,500 UNIT; Start 12/23/18 at 09:30 RENÉE YAP MD December 24, 2018 12:30
[2018-12-24 14:45] VITALS: BP 131/62; PULSE 73; RESP 18
--- NOTE | 2018-12-24 16:12 | PN ---
Date/Time of Note Date/Time of Note DATE: 12/24/18 TIME: 16:12 Assessment/Plan VTE Pro[place]axis [place] [facility] [place]: 5 [place] applied [place] [facility] [place] Yes SCD contraindicated: other Pharmacological prophylaxis: other Pharm contraindication: other Lines/Catheters IV Catheter Type (from [facility]): Saline Lock Urinary Cath still in place: No Assessment/Plan Assessment/Plan - Permacath malfunction. SP PermCath exchange by radiology - Hemodialysis dependent end-stage renal disease. - HD yesterday - Dr. Hamm is following from nephrology standpoint. - Hypertension. Continue metoprolol and hydralazine on p.r.n. basis. - Diastolic congestive heart failure - Status post PPM for heart block - History of cerebrovascular accident. Continue aspirin. - History of cardiac arrest and anoxic brain injury, recovered. - Status post dysphagia with PEG - Anemia of chronic disease- Hgb 8,8 Anticipate discharge tomorrow. Further recommendations based on clinical course. Plan of care discussed with Dr. Moore. Result Diagram: 12/23/1872912/23/18 07 Subjective 24 Hr Interval Summary Eyes: no complaints ENT: no complaints Respiratory: no complaints Cardiovascular: no complaints Gastrointestinal: no complaints Genitourinary: no complaints Musculoskeletal: no complaints Skin: no complaints Exam/Review of Systems Exam Vitals Vital Signs Date Temp Pulse Resp B/P (MAP) Pulse Ox O2 O2 Flow FiO2 Time Delivery Rate 12/24/18 98.7 73 18 131/62 99 14:45 (85) 12/23/18 Room Air 20:56 Intake and Output 12/23/18 12/23/18 12/24/18 1515:00 23:00 07:00 IntakeIntake Total 360 ml 170 ml OutputOutput Total 2400 ml BalanceBalance -2040 ml 170 ml Constitutional: alert, well developed Psych: nl mood/affect Head: normocephalic Eyes: nl lids, nl sclera ENMT: nl external ears & nose Neck: non-tender Respiratory: clear to auscultation Cardiovascular: nl pulses, other (s1s2) Gastrointestinal: soft, non-tender Musculoskeletal: muscle weakness Extremities: normal pulses Neurological: nl speech, other (alert/reponsie) Skin: nl turgor Lymph: nontender Medications Medication Current Medications Acetaminophen (Tylenol Tab) 650 mg Q6H PRN PO MILD PAIN LEVEL 1-3; Start 12/20/18 at 22:30 Ammonium Lactate (Lac-Hydrin 12% Lotion) 1 applic DAILY TOP Last administered on 12/24/18 08:13; Admin Dose 1 APPLIC; Start 12/21/18 at 09:00 Aspirin (Aspirin) 81 mg DAILY PO Last administered on 12/24/18 08:11; Admin Dose 81 MG; Start 12/21/18 at 09:00 Famotidine (Pepcid) 20 mg DAILY PO Last administered on 12/24/18 08:11; Admin Dose 20 MG; Start 12/21/18 at 09:00 Hydroxyzine HCl (Atarax) 25 mg Q8H PRN PO ITCHING; Start 12/20/18 at 22:30 Magnesium Hydroxide (Milk Of Mag) 30 ml DAILY PO Last administered on 12/21/18 00:12; Admin Dose 30 ML; Start 12/20/18 at 23:00 Metoprolol Tartrate (Lopressor) 50 mg BID PO Last administered on 12/24/18 08:12; Admin Dose 50 MG; Start 12/20/18 at 23:00 Multivit/Ca Carb/ B Cmplx/FA/Prenat (Stephanie-Johnny) 1 tab DAILY PO Last administered on 12/24/18 08:11; Admin Dose 1 TAB; Start 12/21/18 at 09:00 Polyethylene Glycol (Miralax) 17 gm DAILY PO Last administered on 12/24/18 08:13; Admin Dose 17 GM; Start 12/21/18 at 09:00 Sevelamer Carbonate (Renvela) 1,600 mg WITH MEALS PO Last administered on 12/24/18 11:46; Admin Dose 1,600 MG; Start 12/20/18 at 22:56 Hydralazine HCl (Apresoline) 10 mg Q6H PRN IV bp>160/95 Last administered on 12/22/18 23:07; Admin Dose 10 MG; Start 12/20/18 at 22:30 Epoetin Justen-epbx (RETACRIT(esrd)) 10,000 unit MoWeFr@1700 SC Last administered on 12/23/18 17:12; Admin Dose 10,000 UNIT; Start 5/8/19 at 17:00 Alteplase, Recombinant (Cathflo (Activase)) 2 mg MAY REPEAT X1 PRN CATHETER IF CATHETER REMAINS OCCULUDED Last administered on 12/21/18 18:35; Admin Dose 2 MG; Start 12/21/18 at 14:30 Nifedipine (Procardia Xl) 30 mg DAILY PO Last administered on 12/24/18 08:12; Admin Dose 30 MG; Start 12/22/18 at 12:00 Heparin Sodium (Porcine) (Heparin (1000 Units/ml)) 4,500 unit AFTER DIALYSIS CATHETER Last administered on 12/23/18at 12:59; Admin Dose 4,500 UNIT; Start 12/23/18 at 09:30 FREDDY LING December 24, 2018 16:12
[2018-12-24] MEDS ORDERED: MAGNESIUM HYDROXIDE 30ML CUP PO PRN (16:30)
[2018-12-24 20:00] VITALS: BP 135/66; PULSE 85; RESP 17
[2018-12-25 02:00] VITALS: BP 133/59; PULSE 79; RESP 18
[2018-12-25] MEDS: SEVELAMER CARBONATE 800 MG TABLET PO SCH ×3 (06:42→17:25)
[2018-12-25 08:04] VITALS: BP 156/90; PULSE 74; RESP 18
[2018-12-25] MEDS: POLYETHYLENE GLYCOL 17 GM PACKET PO SCH (08:23)
[2018-12-25] MEDS: MULTIVIT/CA CARB/B CMPLX/FA TAB PO SCH (08:24)
[2018-12-25] MEDS: ASPIRIN 81 MG TAB PO SCH (08:24)
[2018-12-25] MEDS: METOPROLOL 50 MG TAB PO SCH ×2 (08:24→20:48)
[2018-12-25] MEDS: NIFEdipine (XL) 30 MG TAB PO SCH (08:24)
[2018-12-25] MEDS: FAMOTIDINE 20 MG TAB PO SCH (08:24)
[2018-12-25] MEDS: AMMONIUM LACTATE 12% 225 GM LOT TOP SCH (08:25)
--- NOTE | 2018-12-25 11:24 | CONS ---
Assessment/Plan Assessment/Plan Hospital Course (Demo Recall) 1. End-stage renal disease. The patient is status post PermCath exchange. s/p HD yesterday. next Hd tomorrow 2. Access. The patient is status post Perm-A-Cath exchange. Continue local access care. 3. Anemia. Continue to monitor hemoglobin and hematocrit levels. Continue Epogen. 4. Mineral bone disorder. The patient is hypocalcemic. Will continue dialysis on low calcium bath. Continue phos binders, monitor. 5. Hypertension. Continue current blood pressure regimen. 6. History of cerebrovascular accident. Continue medical management. 7. History of diastolic heart failure. Continue medical management. 8. History of cardiac arrest. 9. 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 Continue to monitor. Consultation Date/Type/Reason Admit Date/Time December 22, 2018 at 12:26 Initial Consult Date Date/Time of Note DATE: 12/25/18 TIME: 11:22 24 HR Interval Summary Free Text/Dictation s/p HD yesterday events reviewed gen nad cv rrr pulm ctab abd soft, nd, nt +bs ext: no edema Exam/Review of Systems Exam Vitals Vital Signs Date Temp Pulse Resp B/P (MAP) Pulse Ox O2 O2 Flow FiO2 Time Delivery Rate 12/25/18 98.0 74 18 156/90 98 08:04 (112) 12/23/18 Room Air 20:56 Intake and Output 12/24/18 12/24/18 12/25/18 1515:00 23:00 07:00 IntakeIntake Total 480 ml 240 ml 120 ml BalanceBalance 480 ml 240 ml 120 ml Results Result Diagram: 12/23/18 0730 12/25/18 0959 Results 24hrs Laboratory Tests Test 12/25/18 09:59 White Blood Count Pending Red Blood Count Pending Hemoglobin Pending Hematocrit Pending Mean Corpuscular Volume Pending Mean Corpuscular Hemoglobin Pending Mean Corpuscular Hemoglobin Concent Pending Red Cell Distribution Width Pending Platelet Count Pending Mean Platelet Volume Pending Sodium Level 140 Potassium Level 4.4 Chloride Level 107 Carbon Dioxide Level 25 Anion Gap 8 Blood Urea Nitrogen 11 Creatinine 3.15 H Est Glomerular Filtrat Rate mL/min 18 L Glucose Level 95 Calcium Level 10.7 H Medications Medication Current Medications Acetaminophen (Tylenol Tab) 650 mg Q6H PRN PO MILD PAIN LEVEL 1-3; Start 5/7/19 at 22:30 Ammonium Lactate (Lac-Hydrin 12% Lotion) 1 applic DAILY TOP Last administered on 12/25/18 08:25; Admin Dose 1 APPLIC; Start 12/21/18 at 09:00 Aspirin (Aspirin) 81 mg DAILY PO Last administered on 12/25/18 08:24; Admin Dose 81 MG; Start 12/21/18 at 09:00 Famotidine (Pepcid) 20 mg DAILY PO Last administered on 12/25/18 08:24; Admin Dose 20 MG; Start 12/21/18 at 09:00 Hydroxyzine HCl (Atarax) 25 mg Q8H PRN PO ITCHING; Start 12/20/18 at 22:30 Metoprolol Tartrate (Lopressor) 50 mg BID PO Last administered on 12/25/18 08:24; Admin Dose 50 MG; Start 12/20/18 at 23:00 Multivit/Ca Carb/ B Cmplx/FA/Prenat (Stephanie-Johnny) 1 tab DAILY PO Last administered on 12/25/18 08:24; Admin Dose 1 TAB; Start 12/21/18 at 09:00 Polyethylene Glycol (Miralax) 17 gm DAILY PO Last administered on 12/25/18 08:23; Admin Dose 17 GM; Start 12/21/18 at 09:00 Sevelamer Carbonate (Renvela) 1,600 mg WITH MEALS PO Last administered on 12/25/18 08:23; Admin Dose 1,600 MG; Start 12/20/18 at 22:56 Hydralazine HCl (Apresoline) 10 mg Q6H PRN IV bp>160/95 Last administered on 12/22/18 23:07; Admin Dose 10 MG; Start 12/20/18 at 22:30 Epoetin Justen-epbx (RETACRIT(esrd)) 10,000 unit MoWeFr@1700 SC Last administered on 12/23/18 17:12; Admin Dose 10,000 UNIT; Start 12/21/18 at 17:00 Alteplase, Recombinant (Cathflo (Activase)) 2 mg MAY REPEAT X1 PRN CATHETER IF CATHETER REMAINS OCCULUDED Last administered on 12/21/18 18:35; Admin Dose 2 MG; Start 12/21/18 at 14:30 Nifedipine (Procardia Xl) 30 mg DAILY PO Last administered on 12/25/18at 08:24; Admin Dose 30 MG; Start 12/22/18 at 12:00 Heparin Sodium (Porcine) (Heparin (1000 Units/ml)) 4,500 unit AFTER DIALYSIS CATHETER Last administered on 12/23/18at 12:59; Admin Dose 4,500 UNIT; Start 12/23/18 at 09:30 Magnesium Hydroxide (Milk Of Mag) 30 ml DAILY PRN PO constipation; Start 12/24/18 at 16:30 RENÉE YAP MD December 25, 2018 11:24
--- NOTE | 2018-12-25 13:01 | PN ---
Date/Time of Note Date/Time of Note DATE: 12/25/18 TIME: 11:56 Assessment/Plan VTE Prophylaxis Risk score (from [facility])>0 risk: 5 SCD applied (from [facility]): Yes SCD contraindicated: other Pharmacological prophylaxis: other Pharm contraindication: other Lines/Catheters IV [facility]atheter Type (from [facility]): Saline Lock Urinary Cath still in place: No Assessment/Plan Assessment/Plan - Permacath malfunction. Status post permacath exchange by radiology. - Hemodialysis dependent end-stage renal disease. Dr. Hamm is following from nephrology standpoint. - Hypertension. Continue metoprolol and hydralazine on p.r.n. basis. - Diastolic congestive heart failure - Status post PPM for heart block - History of cerebrovascular accident. Continue aspirin. - History of cardiac arrest and anoxic brain injury, recovered. - Status post dysphagia with PEG - Anemia of chronic disease Further recommendations based on clinical course. Plan of care discussed with Dr. Moore. Result Diagram: 12/23/18 0730 12/25/18 0959 Results 24hrs Laboratory Tests Test 12/25/18 09:59 Sodium Level 140 Potassium Level 4.4 Chloride Level 107 Carbon Dioxide Level 25 Anion Gap 8 Blood Urea Nitrogen 11 Creatinine 3.15 H Est Glomerular Filtrat Rate mL/min 18 L Glucose Level 95 Calcium Level 10.7 H Exam/Review of Systems Exam Vitals Vital Signs Date Temp Pulse Resp B/P (MAP) Pulse Ox O2 O2 Flow FiO2 Time Delivery Rate 12/25/18 98.0 74 18 156/90 98 08:04 (112) 12/23/18 Room Air 20:56 Intake and Output 12/24/18 12/24/18 12/25/18 1414:59 22:59 06:59 IntakeIntake Total 480 ml 240 ml 120 ml BalanceBalance 480 ml 240 ml 120 ml Constitutional: alert, well developed, obese Psych: nl mood/affect Head: normocephalic Eyes: nl lids, nl sclera ENMT: nl external ears & nose Neck: non-tender Respiratory: clear to auscultation Cardiovascular: nl pulses, other (s1s2) Gastrointestinal: soft, non-tender Musculoskeletal: muscle weakness Extremities: normal pulses Neurological: nl speech, other (alert/responsie) Skin: nl turgor Results Results 24hrs Laboratory Tests Test 12/25/18 09:59 Sodium Level 140 Potassium Level 4.4 Chloride Level 107 Carbon Dioxide Level 25 Anion Gap 8 Blood Urea Nitrogen 11 Creatinine 3.15 H Est Glomerular Filtrat Rate mL/min 18 L Glucose Level 95 Calcium Level 10.7 H Medications Medication Current Medications Acetaminophen (Tylenol Tab) 650 mg Q6H PRN PO MILD PAIN LEVEL 1-3; Start 12/20/18 at 22:30 Ammonium Lactate (Lac-Hydrin 12% Lotion) 1 applic DAILY TOP Last administered on 12/25/18 08:25; Admin Dose 1 APPLIC; Start 12/21/18 at 09:00 Aspirin (Aspirin) 81 mg DAILY PO Last administered on 12/25/18 08:24; Admin Dose 81 MG; Start 12/21/18 at 09:00 Famotidine (Pepcid) 20 mg DAILY PO Last administered on 12/25/18 08:24; Admin Dose 20 MG; Start 12/21/18 at 09:00 Hydroxyzine HCl (Atarax) 25 mg Q8H PRN PO ITCHING; Start 12/20/18 at 22:30 Metoprolol Tartrate (Lopressor) 50 mg BID PO Last administered on 12/25/18 08:24; Admin Dose 50 MG; Start 12/20/18 at 23:00 Multivit/Ca Carb/ B Cmplx/FA/Prenat (Stephanie-Johnny) 1 tab DAILY PO Last administered on 12/25/18 08:24; Admin Dose 1 TAB; Start 12/21/18 at 09:00 Polyethylene Glycol (Miralax) 17 gm DAILY PO Last administered on 12/25/18 08:23; Admin Dose 17 GM; Start 12/21/18 at 09:00 Sevelamer Carbonate (Renvela) 1,600 mg WITH MEALS PO Last administered on 12/25/18 08:23; Admin Dose 1,600 MG; Start 12/20/18 at 22:56 Hydralazine HCl (Apresoline) 10 mg Q6H PRN IV bp>160/95 Last administered on 12/22/18 23:07; Admin Dose 10 MG; Start 12/20/18 at 22:30 Epoetin Justen-epbx (RETACRIT(esrd)) 10,000 unit MoWeFr@1700 SC Last administered on 12/23/18 17:12; Admin Dose 10,000 UNIT; Start 12/21/18 at 17:00 Alteplase, Recombinant (Cathflo (Activase)) 2 mg MAY REPEAT X1 PRN CATHETER IF CATHETER REMAINS OCCULUDED Last administered on 12/21/18 18:35; Admin Dose 2 MG; Start 12/21/18 at 14:30 Nifedipine (Procardia Xl) 30 mg DAILY PO Last administered on 12/25/18 08:24; Admin Dose 30 MG; Start 12/22/18 at 12:00 Heparin Sodium (Porcine) (Heparin (1000 Units/ml)) 4,500 unit AFTER DIALYSIS CATHETER Last administered on 12/23/18 12:59; Admin Dose 4,500 UNIT; Start 12/23/18 at 09:30 Magnesium Hydroxide (Milk Of Mag) 30 ml DAILY PRN PO constipation; Start 12/24/18 at 16:30 FREDDY LING December 25, 2018 13:01
[2018-12-25 14:42] VITALS: BP 112/57; PULSE 67; RESP 16
[2018-12-25 20:00] VITALS: BP 123/58; PULSE 72; RESP 18
[2018-12-26] VITALS (19 sets, daily range): BP systolic 107–143; BP diastolic 66–81; PULSE 65–79; RESP 16–18
[2018-12-26] MEDS: SEVELAMER CARBONATE 800 MG TABLET PO SCH ×3 (06:46→17:09)
--- NOTE | 2018-12-26 08:34 | PN ---
DATE: 12/26/2018 SUBJECTIVE: The patient is stable. No events overnight. No fevers, chills, nausea or vomiting. OBJECTIVE: VITAL SIGNS: Blood pressure is 143/66, pulse 67, respiration 18, temperature 98.7. HEENT: Head is normocephalic. NECK: Supple. HEART: Regular rate. LUNGS: Show diminished breath sounds at the base. ABDOMEN: Soft, nontender to palpation without rebound or guarding. EXTREMITIES: Negative for clubbing, cyanosis, no edema. DERMATOLOGIC: No rashes. MUSCULOSKELETAL: No joint effusion. NEUROLOGIC: No change in exam. MEDICATIONS: Reviewed. LABORATORY DATA: Has been reviewed. ASSESSMENT AND PLAN: 1. End-stage renal disease. The patient is status post PermCath exchange. The patient is scheduled for hemodialysis today. 2. Access. The patient is status post PermCath exchange. Continue local access care. 3. Anemia. Continue to monitor hemoglobin and hematocrit levels. Continue Epogen. 4. Mineral bone disorder. Monitor calcium and phosphorus levels. Continue dialysis on low calcium bath. 5. Hypertension. Continue current blood pressure regimen. 6. History of cerebrovascular accident. Continue medical management. 7. History of diastolic heart failure. Continue current treatment plan. 8. History of cardiac arrest. 9. 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 Continue to monitor. Dictated By: KAYLENE JOSUE/GEOVANI Conf#: [id number] DID#: [id number] CC: LEW RODRÍGUEZ MD;*EndCC*
[2018-12-26] MEDS: NIFEdipine (XL) 30 MG TAB PO SCH (09:00)
[2018-12-26] MEDS: FAMOTIDINE 20 MG TAB PO SCH (09:02)
[2018-12-26] MEDS: POLYETHYLENE GLYCOL 17 GM PACKET PO SCH (09:02)
[2018-12-26] MEDS: METOPROLOL 50 MG TAB PO SCH ×2 (09:03→23:59)
[2018-12-26] MEDS: ASPIRIN 81 MG TAB PO SCH (09:04)
[2018-12-26] MEDS: MULTIVIT/CA CARB/B CMPLX/FA TAB PO SCH (09:04)
[2018-12-26] MEDS: AMMONIUM LACTATE 12% 225 GM LOT TOP SCH (09:05)
[2018-12-26] MEDS ORDERED: ALTEPLASE (CATHFLO) 2 MG INJ CATHETER STA (15:47)
[2018-12-26] MEDS: EPOETIN ALFA-EPBX (ESRD) 10,000 UNIT/ML VIAL SC SCH (17:09)
--- NOTE | 2018-12-26 17:10 | PN ---
Date/Time of Note Date/Time of Note DATE: 12/26/18 TIME: 17:08 Assessment/Plan VTE Prophylaxis Risk score (from Ns)>0 risk: 5 SCD applied (from Ns): Yes Pharmacological prophylaxis: heparin Lines/Catheters IV [facility] (from [facility] Saline Lock Urinary Cath still in place: No Assessment/Plan Hospital Course Hemodialysis nurse unable to do dialysis via permacath, status post Cathflo, will attempt for to do dialysis later today. Patient remains hemodynamically stable, afebrile. Assessment/Plan - Permacath malfunction. Status post permacath exchange by radiology. - Hemodialysis dependent end-stage renal disease. Dr. Hamm is following from nephrology standpoint. - Hypertension. Continue metoprolol and hydralazine on p.r.n. basis. - Diastolic congestive heart failure - Status post PPM for heart block - History of cerebrovascular accident. Continue aspirin. - History of cardiac arrest and anoxic brain injury, recovered. - Status post dysphagia with PEG - Anemia of chronic disease Further recommendations based on clinical course. Plan of care discussed with Dr. Moore. Result Diagram: 12/26/18 0821 12/26/18 0821 Results 24hrs Laboratory Tests Test 12/26/18 08:21 White Blood Count 5.2 Red Blood Count 3.76 L Hemoglobin 10.0 L Hematocrit 34.9 #L Mean Corpuscular Volume 92.8 Mean Corpuscular Hemoglobin 26.6 L Mean Corpuscular Hemoglobin Concent 28.7 L Red Cell Distribution Width 16.9 H Platelet Count 255 # Mean Platelet Volume 10.6 H Immature Granulocytes % 0.400 Neutrophils % 46.7 Lymphocytes % 29.9 Monocytes % 10.0 Eosinophils % 12.0 H Basophils % 1.0 Nucleated Red Blood Cells % 0.0 Immature Granulocytes # 0.020 Neutrophils # 2.4 Lymphocytes # 1.6 Monocytes # 0.5 Eosinophils # 0.6 H Basophils # 0.1 Nucleated Red Blood Cells # 0.0 Sodium Level 140 Potassium Level 4.2 Chloride Level 106 Carbon Dioxide Level 27 Anion Gap 7 Blood Urea Nitrogen 16 Creatinine 3.59 H Est Glomerular Filtrat Rate mL/min 16 L Glucose Level 83 Calcium Level 10.7 H Exam/Review of Systems Exam Vitals Vital Signs Date Temp Pulse Resp B/P (MAP) Pulse Ox O2 O2 Flow FiO2 Time Delivery Rate 12/26/18 78 14:45 12/26/18 16 127/71 96 Room Air 14:30 (89) 12/26/18 98.4 14:02 Intake and Output 12/25/18 12/25/18 12/26/18 1515:00 23:00 07:00 IntakeIntake Total 1200 ml OutputOutput Total 100 ml 350 ml BalanceBalance 1100 ml -350 ml Exam Constitutional: alert, oriented Respiratory: clear to auscultation Cardiovascular: nl pulses, other (Left chest PPM) Gastrointestinal: soft, non-tender, other (G-tube) Extremities: normal pulses Neurological: nl mental status Additional Comments Left chest Mino catheter Results Results 24hrs Laboratory Tests Test 12/26/18 08:21 White Blood Count 5.2 Red Blood Count 3.76 L Hemoglobin 10.0 L Hematocrit 34.9 #L Mean Corpuscular Volume 92.8 Mean Corpuscular Hemoglobin 26.6 L Mean Corpuscular Hemoglobin Concent 28.7 L Red Cell Distribution Width 16.9 H Platelet Count 255 # Mean Platelet Volume 10.6 H Immature Granulocytes % 0.400 Neutrophils % 46.7 Lymphocytes % 29.9 Monocytes % 10.0 Eosinophils % 12.0 H Basophils % 1.0 Nucleated Red Blood Cells % 0.0 Immature Granulocytes # 0.020 Neutrophils # 2.4 Lymphocytes # 1.6 Monocytes # 0.5 Eosinophils # 0.6 H Basophils # 0.1 Nucleated Red Blood Cells # 0.0 Sodium Level 140 Potassium Level 4.2 Chloride Level 106 Carbon Dioxide Level 27 Anion Gap 7 Blood Urea Nitrogen 16 Creatinine 3.59 H Est Glomerular Filtrat Rate mL/min 16 L Glucose Level 83 Calcium Level 10.7 H Medications Medication Current Medications Acetaminophen (Tylenol Tab) 650 mg Q6H PRN PO MILD PAIN LEVEL 1-3; Start 12/20/18 at 22:30 Ammonium Lactate (Lac-Hydrin 12% Lotion) 1 applic DAILY TOP Last administered on 12/26/18at 09:05; Admin Dose 1 APPLIC; Start 12/21/18 at 09:00 Aspirin (Aspirin) 81 mg DAILY PO Last administered on 12/26/18at 09:04; Admin Dose 81 MG; Start 12/21/18 at 09:00 Famotidine (Pepcid) 20 mg DAILY PO Last administered on 12/26/18at 09:02; Admin Dose 20 MG; Start 12/21/18 at 09:00 Hydroxyzine HCl (Atarax) 25 mg Q8H PRN PO ITCHING; Start 12/20/18 at 22:30 Metoprolol Tartrate (Lopressor) 50 mg BID PO Last administered on 12/26/18 09:03; Admin Dose 50 MG; Start 12/20/18 at 23:00 Multivit/Ca Carb/ B Cmplx/FA/Prenat (Stephanie-Johnny) 1 tab DAILY PO Last administered on 12/26/18 09:04; Admin Dose 1 TAB; Start 12/21/18 at 09:00 Polyethylene Glycol (Miralax) 17 gm DAILY PO Last administered on 12/26/18 09:02; Admin Dose 17 GM; Start 12/21/18 at 09:00 Sevelamer Carbonate (Renvela) 1,600 mg WITH MEALS PO Last administered on 12/26/18 09:04; Admin Dose 1,600 MG; Start 12/20/18 at 22:56 Hydralazine HCl (Apresoline) 10 mg Q6H PRN IV bp>160/95 Last administered on 12/22/18 23:07; Admin Dose 10 MG; Start 12/20/18 at 22:30 Epoetin Justen-epbx (RETACRIT(esrd)) 10,000 unit MoWeFr@1700 SC Last administered on 12/23/18 17:12; Admin Dose 10,000 UNIT; Start 12/21/18 at 17:00 Alteplase, Recombinant (Cathflo (Activase)) 2 mg MAY REPEAT X1 PRN CATHETER IF CATHETER REMAINS OCCULUDED Last administered on 12/21/18 18:35; Admin Dose 2 MG; Start 12/21/18 at 14:30 Nifedipine (Procardia Xl) 30 mg DAILY PO Last administered on 12/25/18 08:24; Admin Dose 30 MG; Start 12/22/18 at 12:00 Heparin Sodium (Porcine) (Heparin (1000 Units/ml)) 4,500 unit AFTER DIALYSIS CATHETER Last administered on 12/23/18 12:59; Admin Dose 4,500 UNIT; Start 12/23/18 at 09:30 Magnesium Hydroxide (Milk Of Mag) 30 ml DAILY PRN PO constipation; Start 5/11/19 at 16:30 ANDREW ODOM December 26, 2018 17:10
[2018-12-26] MEDS: HEPARIN 1000 UNITS/ML 10 ML INJ CATHETER SCH (22:29)
[2018-12-27 02:50] VITALS: BP 120/56; PULSE 65; RESP 20
[2018-12-27] MEDS: SEVELAMER CARBONATE 800 MG TABLET PO SCH ×3 (06:36→17:35)
[2018-12-27 07:59] VITALS: BP 113/58; PULSE 64; RESP 18
--- NOTE | 2018-12-27 09:05 | PN ---
DATE: 12/27/2018 SUBJECTIVE: The patient is stable. The patient had hemodialysis yesterday, tolerated well. The pat ient did require catheter placement prior to dialysis. Her initial hemodialysis was unable to be com pleted due to malfunctioning catheter. No other events noted. OBJECTIVE: VITAL SIGNS: Blood pressure is 113/58, respirations 18, pulse 64, temperature 98.0. HEENT: Head is normocephalic. NECK: Supple. HEART: Regular rate. LUNGS: Show diminished breath sounds at the base. ABDOMEN: Soft, nontender to palpation without rebound or guarding. EXTREMITIES: Negative for clubbing, cyanosis, no edema. DERMATOLOGIC: No rashes. MUSCULOSKELETAL: No joint effusion. NEUROLOGIC: No change in exam. MEDICATIONS: Reviewed. LABORATORY DATA: Reviewed. ASSESSMENT AND PLAN: 1. End-stage renal disease. The patient had hemodialysis yesterday, tolerated well. Plan is for di alysis again tomorrow. 2. Access. The patient is status post Perm-A-Cath exchange. Continue to monitor. Continue local [facility]. 3. Anemia. Continue to monitor hemoglobin and hematocrit levels. Continue Epogen. 4. Mineral bone disorder. Monitor calcium and phosphorus levels. Continue dialysis on low calcium bath. 5. Hypertension. Continue current blood pressure regimen. 6. History of cerebrovascular accident. Continue medical management. 7. History of diastolic heart failure. Continue current treatment plan. 8. History of cardiac arrest. 9. Chronic encephalopathy. Continue to monitor. Dictated By: KAYLENE JOSUE/NTS Conf#: [id number] DID#: [id number] CC: LEW RODRÍGUEZ MD;*EndCC*
[2018-12-27] MEDS: MULTIVIT/CA CARB/B CMPLX/FA TAB PO SCH (09:08)
[2018-12-27] MEDS: FAMOTIDINE 20 MG TAB PO SCH (09:08)
[2018-12-27] MEDS: NIFEdipine (XL) 30 MG TAB PO SCH (09:08)
[2018-12-27] MEDS: ASPIRIN 81 MG TAB PO SCH (09:08)
[2018-12-27] MEDS: METOPROLOL 50 MG TAB PO SCH ×2 (09:09→21:37)
[2018-12-27] MEDS: AMMONIUM LACTATE 12% 225 GM LOT TOP SCH (09:09)
[2018-12-27] MEDS: POLYETHYLENE GLYCOL 17 GM PACKET PO SCH (09:09)
[2018-12-27 14:00] VITALS: BP 128/60; PULSE 68; RESP 18
--- NOTE | 2018-12-27 16:12 | PN ---
Date/Time of Note Date/Time of Note DATE: 12/27/18 TIME: 16:10 Assessment/Plan VTE Prophylaxis Risk score (from Ns)>0 risk: 5 SCD applied (from Ns): Yes Pharmacological prophylaxis: heparin Lines/Catheters IV [facility]from [facility] Saline Lock Urinary Cath still in place: No Assessment/Plan Hospital Course Patient remains hemodynamically stable, afebrile. Plan for hemodialysis tomorrow. If patient is able to complete hemodialysis tomorrow via permacath, [facility]. Assessment/Plan - Permacath malfunction. Status post permacath exchange by radiology. - Hemodialysis dependent end-stage renal disease. Dr. Hamm is following from nephrology standpoint. - Hypertension. Continue metoprolol and hydralazine on p.r.n. basis. - Diastolic congestive heart failure - Status post PPM for heart block - History of cerebrovascular accident. Continue aspirin. - History of cardiac arrest and anoxic brain injury, recovered. - Status post dysphagia with PEG - Anemia of chronic disease Further recommendations based on clinical course. Plan of care discussed with Dr. Moore. Result Diagram: 12/26/1882012/26/18820 Exam/Review of Systems Exam Vitals Vital Signs Date Temp Pulse Resp B/P (MAP) Pulse Ox O2 O2 Flow FiO2 Time Delivery Rate 12/27/18 97.9 68 18 128/60 100 Room Air 14:00 (82) Intake and Output 12/26/18 12/26/18 12/27/18 1515:00 23:00 07:00 IntakeIntake Total 600 ml 400 ml OutputOutput Total 350 ml 2900 ml 120 ml BalanceBalance 250 ml -2500 ml -120 ml Exam Constitutional: alert, oriented Respiratory: clear to auscultation Cardiovascular: nl pulses, other (Left chest PPM) Gastrointestinal: soft, non-tender, other (G-tube) Extremities: normal pulses Neurological: nl mental status Additional Comments Left chest Mino catheter Medications Medication Current Medications Acetaminophen (Tylenol Tab) 650 mg Q6H PRN PO MILD PAIN LEVEL 1-3; Start 12/20/18 at 22:30 Ammonium Lactate (Lac-Hydrin 12% Lotion) 1 applic DAILY TOP Last administered on 12/27/18at 09:09; Admin Dose 1 APPLIC; Start 12/21/18 at 09:00 Aspirin (Aspirin) 81 mg DAILY PO Last administered on 12/27/18 09:08; Admin Dose 81 MG; Start 12/21/18 at 09:00 Famotidine (Pepcid) 20 mg DAILY PO Last administered on 12/27/18 09:08; Admin Dose 20 MG; Start 12/21/18 at 09:00 Hydroxyzine HCl (Atarax) 25 mg Q8H PRN PO ITCHING; Start 12/20/18 at 22:30 Metoprolol Tartrate (Lopressor) 50 mg BID PO Last administered on 12/27/18 09:09; Admin Dose 50 MG; Start 12/20/18 at 23:00 Multivit/Ca Carb/ B Cmplx/FA/Prenat (Stephanie-Johnny) 1 tab DAILY PO Last administered on 12/27/18 09:08; Admin Dose 1 TAB; Start 12/21/18 at 09:00 Polyethylene Glycol (Miralax) 17 gm DAILY PO Last administered on 12/27/18 09:09; Admin Dose 17 GM; Start 12/21/18 at 09:00 Sevelamer Carbonate (Renvela) 1,600 mg WITH MEALS PO Last administered on 12/27/18 12:09; Admin Dose 1,600 MG; Start 12/20/18 at 22:56 Hydralazine HCl (Apresoline) 10 mg Q6H PRN IV bp>160/95 Last administered on 12/22/18 23:07; Admin Dose 10 MG; Start 12/20/18 at 22:30 Epoetin Justen-epbx (RETACRIT(esrd)) 10,000 unit MoWeFr@1700 SC Last administered on 12/26/18 17:09; Admin Dose 10,000 UNIT; Start 12/21/18 at 17:00 Alteplase, Recombinant (Cathflo (Activase)) 2 mg MAY REPEAT X1 PRN CATHETER IF CATHETER REMAINS OCCULUDED Last administered on 12/21/18 18:35; Admin Dose 2 MG; Start 12/21/18 at 14:30 Nifedipine (Procardia Xl) 30 mg DAILY PO Last administered on 12/27/18 09:08; Admin Dose 30 MG; Start 12/22/18 at 12:00 Heparin Sodium (Porcine) (Heparin (1000 Units/ml)) 4,500 unit AFTER DIALYSIS CATHETER Last administered on 12/26/18at 22:29; Admin Dose 4,500 UNIT; Start 12/23/18 at 09:30 Magnesium Hydroxide (Milk Of Mag) 30 ml DAILY PRN PO constipation; Start 12/14 09/03 at 16:30 ANDREW ODOM December 27, 2018 16:12
[2018-12-27 20:08] VITALS: BP 133/62; PULSE 68; RESP 20
[2018-12-28] VITALS (18 sets, daily range): BP systolic 104–159; BP diastolic 56–78; PULSE 57–75; RESP 18–20
[2018-12-28] MEDS: ASPIRIN 81 MG TAB PO SCH (08:41)
[2018-12-28] MEDS: SEVELAMER CARBONATE 800 MG TABLET PO SCH ×3 (08:41→17:23)
[2018-12-28] MEDS: METOPROLOL 50 MG TAB PO SCH (08:42)
[2018-12-28] MEDS: POLYETHYLENE GLYCOL 17 GM PACKET PO SCH (08:42)
[2018-12-28] MEDS: MULTIVIT/CA CARB/B CMPLX/FA TAB PO SCH (08:42)
[2018-12-28] MEDS: FAMOTIDINE 20 MG TAB PO SCH (08:42)
[2018-12-28] MEDS: NIFEdipine (XL) 30 MG TAB PO SCH (08:42)
[2018-12-28] MEDS: AMMONIUM LACTATE 12% 225 GM LOT TOP SCH (08:43)
--- NOTE | 2018-12-28 10:00 | PN ---
DATE: 12/28/2018 SUBJECTIVE: The patient is stable. No events overnight. OBJECTIVE: VITAL SIGNS: Blood pressure is 150/62, pulse 68, respirations 20, temperature 98.6. HEENT: Head is normocephalic. NECK: Supple. HEART: Regular rate. LUNGS: Show diminished breath sounds at the base. ABDOMEN: Soft, nontender to palpation without rebound or guarding. EXTREMITIES: Negative for clubbing, cyanosis, no edema. DERMATOLOGIC: No rashes. MUSCULOSKELETAL: No joint effusion. NEUROLOGIC: No change in exam. MEDICATIONS: Reviewed. LABORATORY DATA: Reviewed. ASSESSMENT AND PLAN: 1. End-stage renal disease. Plan is for hemodialysis today. We will dialyze for 3 hours 2k bath, c alcium 2.5. 2. Access. The patient is status post Perm-A-Cath exchange. Continue to monitor. Continue local a [facility] care. 3. Anemia. Continue to monitor hemoglobin and hematocrit levels. Continue Epogen. 4. Mineral bone disorder, monitor calcium and phosphorus levels. The patient is hypercalcemic. The patient's PTH levels are reviewed. Vitamin D levels are pending. We will consider starting the pat ient on Sensipar. Continue dialysis on low calcium bath. 5. Hypertension. Continue current blood pressure regimen. 6. History of cerebrovascular accident. Continue medical management. 7. History of diastolic heart failure. Continue current treatment plan. 8. History of cardiac arrest. 9. Chronic encephalopathy. Continue to monitor. Dictated By: KAYLENE SÁNCHEZ DO NR/NTS Conf#: [id number] DID#: [id number] CC: LEW RODRÍGUEZ MD;*EndCC*
[2018-12-28] MEDS: ALTEPLASE (CATHFLO) 2 MG INJ CATHETER PRN (11:55)
[2018-12-28] MEDS: EPOETIN ALFA-EPBX (ESRD) 10,000 UNIT/ML VIAL SC SCH (17:25)
--- NOTE | 2018-12-28 23:09 | DS ---
Date/Time of Note Date/Time of Note DATE: 12/28/18 TIME: 23:07 Discharge Summary Admission/Discharge Info Admit Date/Time December 22, 2018 at 12:26 Discharge Date/Time Patient Condition: Stable Hx of Present Illness The patient is a female well known to me from previous multiple admissions. The patient has a complex medical history including history of a CVA, cardiopul monary arrest leading to respiratory failure requiring tracheostomy and G-tube placement. The patient had prolonged stay at [facility] and also at [facility] subacute unit. However, the patient had a remarkable recovery and got off the vent and also was subsequently decannulated. The patient also had history of end-stage renal disease requiring hemodialysis. The patient is currently at [facility] nursing [facility] [place]. The patient does have a G-tube, although patient is able to take p.o. diet. The patient was sent back from assisted [facility] [place] today after she was noted to have a clotted Perm-A-Cath. The patient was subsequently was sent to [facility] ER for further evaluation and management. The patient was seen in the ER and was noted to have stable vital signs. Chemistry revealed potassium of 4.9, BUN was 11, creatinine was 2.7, and calcium was 9.9. The patient did not have any fever or chills. The patient denied any chest pain or shortness of breath. No reported abdominal pain. The patient did not have any leg edema. No reported resting leg pain. The patient is awake, alert, follows simple commands, and moves all extremities. The patient denies any cough or vomiting. No gross focal weakness. Hospital Course - Permacath malfunction. Status post permacath exchange by radiology. Pt is underwent HD using Permacath. - Hemodialysis dependent end-stage renal disease. Dr. Hamm is following from nephrology standpoint. - Hypertension. Continue metoprolol and hydralazine on p.r.n. basis. - Diastolic congestive heart failure - Status post PPM for heart block - History of cerebrovascular accident. Continue aspirin. - History of cardiac arrest and anoxic brain injury, recovered. - Status post dysphagia with PEG - Anemia of chronic disease Plan of care discussed with Dr. Moore. Home Meds Reported Medications Acetaminophen* (Tylenol*) 325 Mg Tablet, 650 MG PO Q6H PRN for MILD PAIN LEVEL 1-3, TAB AND FEVER 12/20/18 Sevelamer Hcl* (Renagel*) 800 Mg Tablet, 1600 MG PO WITH MEALS, TAB 12/20/18 Multivit/Ca Carb/B Cmplx/Fa* (Stephanie-Johnny*) 1 Tab Tab, 1 TAB PO DAILY, TAB 12/20/18 Protein Supplement (Promod) 946 Ml Liquid, 30 ML PO TID 12/20/18 Polyethylene Glycol* (Miralax*) 17 Gm Powd.pack, 17 GM PO DAILY, #30 PACKET 12/20/18 Metoprolol Tartrate* (Lopressor*) 50 Mg Tab, 50 MG PO BID, #60 TAB HOLD IF SBP<110 OR HR<60 12/20/18 Magnesium Hydroxide* (Milk Of Magnesia*) 400 Mg/5 Ml Oral.susp, 30 ML PO Q24H for CONSTIPATION, ML 12/20/18 Hydroxyzine Hcl* (Hydroxyzine Hcl*) 25 Mg Tablet, 25 MG PO Q8H PRN for ITCHING, #30 TAB 12/20/18 Heparin Sodium,Porcine/Pf (HEPARIN SOD 5,000 UNIT/ 0.5 ML) 5,000 Unit/0.5 Ml Vial, 5000 UNIT IJ Q12H, VIAL 12/20/18 Famotidine* (Famotidine*) 20 Mg Tablet, 20 MG PO DAILY, #30 TAB 12/20/18 Bisacodyl (Dulcolax) 10 Mg Supp.rect, 10 MG RC Q24H, SUPP.RECT 12/20/18 Aspirin* (Aspirin* Chew) 81 Mg Tab.chew, 81 MG PO DAILY, TAB.CHEW 12/20/18 Ammonium Lactate* (Lac-Hydrin* 12% (225gm)) 1 Applic Lotion, 1 APPLIC TOP DAILY, BOTTLE 12/20/18 Follow-up Plan f/up with HD center for next HD. Primary Care Provider Tank Moore MD Time spent on discharge: > 30 minutes Pending Labs Laboratory Tests Test 12/28/18 10:13 Hemoglobin 10.2 g/dl (12.0-16.0) ANDREW ODOM December 28, 2018 23:09
== END 2018-12-28 21:45 | DRG 314 ==
LOC: E/R 16:23 → PP2 18:43 → OBSVTOIN 12-22 12:26
PROVIDERS: ADMIT Internal Medicine; ATTEND Internal Medicine
PROC: 0JPT0WZ Removal of Totally Implantable Vascular Access Device from Trunk Subcutaneous Tissue and Fascia, Open Approach (ICD-10-PCS; principal; 2018-12-22)
PROC: 0JH60XZ Insertion of Tunneled Vascular Access Device into Chest Subcutaneous Tissue and Fascia, Open Approach (ICD-10-PCS; 2018-12-22)
PROC: 02PA33Z Removal of Infusion Device from Heart, Percutaneous Approach (ICD-10-PCS; 2018-12-22)
PROC: 02HV33Z Insertion of Infusion Device into Superior Vena Cava, Percutaneous Approach (ICD-10-PCS; 2018-12-22)
PROC: 5A1D70Z Performance of Urinary Filtration, Intermittent, Less than 6 Hours Per Day (ICD-10-PCS; 2018-12-22)
DX: T82.41XA Breakdown (mechanical) of vascular dialysis catheter, initial encounter (principal); N18.6 End stage renal disease; I13.2 Hypertensive heart and chronic kidney disease with heart failure and with stage 5 chronic kidney disease, or end stage renal disease; I50.30 Unspecified diastolic (congestive) heart failure; G93.1 Anoxic brain damage, not elsewhere classified; Z99.2 Dependence on renal dialysis; Z86.73 Personal history of transient ischemic attack (TIA), and cerebral infarction without residual deficits; Z86.74 Personal history of sudden cardiac arrest; Z95.0 Presence of cardiac pacemaker; Z93.1 Gastrostomy status; D69.6 Thrombocytopenia, unspecified; D63.1 Anemia in chronic kidney disease; R13.10 Dysphagia, unspecified
CPT/HCPCS: 36415; 36581; 71045; 80048; 83970; 85018; 85025; 85610; 85730; 86706; 87081; 87340; 90935; 92610; 93005; 97162; G0378; C1750; J0360; J1644; J2997; Q5105